=== PATIENT | female | born 1980 | race Caucasian/White ===

== ENCOUNTER 2017-11-19 17:48 | Emergency (ER) | payer MEDICAID, SELFPAY ==
[2017-11-19 17:49] VITALS: BP 125/70; PULSE 78; RESP 18; TEMP 36.4; O2SAT 97; BMI 36.9
[2017-11-19 20:20] VITALS: BP 122/91; PULSE 84; RESP 18; O2SAT 99
[2017-11-19] MEDS: Ondansetron 4 MG/2 ML Vial IV (20:22)
[2017-11-19] MEDS: HYDROmorphone 1 MG/ML Syringe 0.5 MG IV (20:22)
[2017-11-19] MEDS: 0.9% Normal Saline 1,000 ML 1000 ML IV (20:22)
[2017-11-19] MEDS: Dicyclomine 10 MG Capsule 20 MG PO (21:37)
[2017-11-19 22:00] VITALS: BP 97/66; PULSE 67; RESP 18; O2SAT 96
[2017-11-19 22:11] LABS: Absolute Lymphocyte Count 2.38 X10^3/ul (0.83-4.51); Absolute Neutrophil Count 4.6 X10^3/uL (2.0-7.7); Basophil# 0.02 X10^3/uL; Basophil% 0.3 % (0-1); Eosinophil# 0.21 X10^3/uL; Eosinophils% 2.7 % (0-5); Hematocrit 39.3 % (37-47); Hemoglobin 13.3 g/dl (12.0-15.0); Lymphocyte # 2.38 X10^3/ul (4.0); Lymphocyte % 31.1 % (19-41); Mean Corp Hgb Conc 33.8 g/gl (32-36); Mean Corpuscular Hgb 29.5 pg (27.0-32.0); Mean Corpuscular Volume 87.1 fL (81-99); Mean Platelet Vol. 10.2 fl (6.2-12.0); Monocyte# 0.46 X10^3/uL; Neutrophil # 4.56 X10^3/uL (2.7-7.7); Neutrophil % 59.6 % (47-70); Platelet Count 180 K/mm3 (150-450); RBC Distribution Width CV 13.7 % (11.6-14.6); RBC Distribution Width SD 43.1 fl (35.1-43.9); Red Blood Count 4.51 M/mm3 (4.2-5.4); White Blood Count 7.7 K/mm3 (4.4-11.0)
[2017-11-19 22:16] LABS: POSITIVE COUNT NO; POSITIVE DIFFERENTIAL NO; POSITIVE MORPHOLOGY NO
[2017-11-19 22:25] LABS: Anion Gap 8 (5-15); BUN 15 mg/dL (7-18); BUN/Creat Ratio 19.6 RATIO (10-20); Calcium,Total 8.1 mg/dL (8.5-10.1); Chloride 109 mmol/L (98-107); Creatinine, Serum 0.76 mg/dL (0.55-1.02); EST Glomerular Filtration Rate 89 mL/min (>60); Est Glom Filt Rate - Afr Amer 108 mL/min (>60); Estimated Creatinine Clearance 107.47 ml/min; Glucose 80 mg/dL (74-106); Potassium 3.9 mmol/L (3.5-5.1); Sodium Level 140 mmol/L (136-145)
--- NOTE | 2017-11-19 23:01 | ED.DCSUM_ITS ---
- ER Visit Summary Date of Service: 11/19/17 Chief Complaint: Abdominal pain with nausea, vomiting and diarrhea History of Present Illness: The patient is a 37 F history of lupus on immunosuppressive meds presents with abdominal pain that is diffuse with nausea , vomiting diarrhea. The nausea and vomiting started yesterday and she states she vomited 5 times. She denied any blood or coffee-ground emesis. She has not vomited today. She states diarrhea started today which is loose and watery. There is no blood, mucus in stool is not black. She has not been on any antibiotics recently. She has had no ill contacts. There is no history of C. difficile. She did not eat anything that did not taste normal to her. She also complains of subjective fever with chills, sore throat and cough. Her cough is nonproductive. She denies dysuria, frequency, urgency hematuria. She does complain of aches. She states her lupus has affected her liver and lungs. She has no renal involvement. Review of systems otherwise negative and please read written note. 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 HEENT exam is marked for dry mucosa otherwise negative. Heart is regular without murmur, gallop or rub. S1 and S2 are normal. Lungs are clear to auscultation with good movement of air bilaterally. Abdomen is minimally tender without guarding or peritoneal findings. All sounds are slightly increased. There is no evidence of umbilical or inguinal hernia. There is no skin lesions noted. Neuro exam is nonfocal. Test Results: CBC and BMP are unremarkable. Emergency Department Course and Treatment: IV was established she was treated with Zofran and Bentyl. She has since passed p.o. challenge. She was reassessed at 2250 and is sitting upright smiling and using her cell phone. She appears in no discomfort presently. Because she is on amino suppressive meds with complaints of fever and chills and the fact she has lupus BMP and CBC were obtained. Treatment Plan: Home pack of Zofran and follow-up with PCP Disposition: Discharged home in stable improved condition Impression: 1. Abdominal pain with nausea, vomiting diarrhea 2. 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 It may contain incorrect words, spelling, and punctuation that were not noted in review of the chart prior to signing ED Disposition - Plan for ED Patient: Disposition: Home or Assisted Living Chief Complaint: Nausea/Vomiting Instructions: ED Vomiting Diarrhea Nonspecific Ad Referrals: Care Physician,No Primary [Primary Care Provider] - Lazaro Gore [NON-STAFF] - 1-2 Days if not improving
[2017-11-19] MEDS: Ondansetron ODT 4 MG Tablet PO (23:16)
[2017-11-19 23:17] VITALS: BP 106/75; PULSE 61; RESP 18; O2SAT 99
== END 2017-11-19 23:18 | disposition home or self-care (01) ==
PROVIDERS: Emergency Provider Emergency Medicine
DX: R10.84 Generalized abdominal pain (principal); R11.2 Nausea with vomiting, unspecified; R19.7 Diarrhea, unspecified; J84.17 Other interstitial pulmonary diseases with fibrosis in diseases classified elsewhere; I27.20 Pulmonary hypertension, unspecified; G47.33 Obstructive sleep apnea (adult) (pediatric); E66.9 Obesity, unspecified; Z79.51 Long term (current) use of inhaled steroids; Z79.891 Long term (current) use of opiate analgesic; Z79.899 Other long term (current) drug therapy
CPT/HCPCS: 80048; 85025; 96361; 96374; 96375; 99284; J7030; A4216; J2405

== ENCOUNTER 2018-02-08 22:15 | Emergency (ER) | payer MEDICAID, SELFPAY ==
--- NOTE | 2018-02-08 13:03 | EKG12_ITS ---
Test Reason : CP Blood Pressure : / mmHG Vent. Rate : 086 BPM Atrial Rate : 086 BPM P-R Int : 148 ms QRS Dur : 080 ms QT Int : 376 ms P-R-T Axes : 062 076 042 degrees QTc Int : 449 ms Normal sinus rhythm Normal ECG Confirmed by HENOK SALAMANCA MD ([id number]), design editor JACIEL CANALES ([id number]) on 02/13/2018 5:38:58 PM Referred By: KELLY
--- NOTE | 2018-02-08 21:55 | RAD_ITS ---
STUDY: X-RAY CHEST REASON FOR EXAM: Female, 37 years old. Cough TECHNIQUE: Frontal and lateral views COMPARISON: January 05, 2017 FINDINGS: The lungs are clear and expanded. There is no demonstrated pleural abnormality. Normal size heart. Normal mediastinum and germán. Normal visualized pulmonary arteries. Normal visualized aortic arch and descending thoracic aorta. Normal visualized thoracic spine. Normal visualized ribs, clavicles, and shoulders. There is no demonstrated abnormality of the visualized soft tissue structures of the upper abdomen. RAD/Chest PA and Lateral IMPRESSION: Normal x-ray examination of the chest. Electronically Signed: Cecilio Cifuentes DO at 22:16 EDT Tel [phone], Service support ,
--- NOTE | 2018-02-08 22:15 | DT_ITS ---
This patient was seen during an EMR downtime February 04, 2018 - February 11, 2018. This patient may have a combination of paper and electronic documentation or all paper documentation. All documentation is viewable within the e-chart portion of [employer] for each patient visit.
== END 2018-02-08 22:50 | disposition home or self-care (01) ==
LOC: ED 02-09 14:01
PROVIDERS: Emergency Provider Emergency Medicine
DX: J45.901 Unspecified asthma with (acute) exacerbation (principal); I27.20 Pulmonary hypertension, unspecified; G47.30 Sleep apnea, unspecified; M32.9 Systemic lupus erythematosus, unspecified; Z79.899 Other long term (current) drug therapy
CPT/HCPCS: 71046; 93005; 94640; 99283

== ENCOUNTER → 2018-04-19 13:57 | Outpatient (CLI) | payer MEDICAID, SELFPAY ==
[2018-04-19 15:11] LABS: Absolute Lymphocyte Count 2.71 X10^3/ul (0.83-4.51); Absolute Neutrophil Count 2.4 X10^3/uL (2.0-7.7); Basophil# 0.03 X10^3/uL; Basophil% 0.5 % (0-1); Eosinophil# 0.22 X10^3/uL; Eosinophils% 3.8 % (0-5); Hematocrit 43.4 % (37-47); Hemoglobin 15.4 g/dl (12.0-15.0); Lymphocyte # 2.71 X10^3/ul (4.0); Lymphocyte % 46.3 % (19-41); Mean Corp Hgb Conc 35.5 g/gl (32-36); Mean Corpuscular Hgb 29.7 pg (27.0-32.0); Mean Corpuscular Volume 83.6 fL (81-99); Mean Platelet Vol. 10.6 fl (6.2-12.0); Monocyte# 0.46 X10^3/uL; Monocyte% 7.9 % (0-10); Neutrophil # 2.41 X10^3/uL (2.7-7.7); Neutrophil % 41.2 % (47-70); Platelet Count 250 K/mm3 (150-450); RBC Distribution Width CV 13.9 % (11.6-14.6); RBC Distribution Width SD 42.2 fl (35.1-43.9); Red Blood Count 5.19 M/mm3 (4.2-5.4); White Blood Count 5.9 K/mm3 (4.4-11.0)
[2018-04-19 15:12] LABS: POSITIVE COUNT NO; POSITIVE DIFFERENTIAL NO; POSITIVE MORPHOLOGY NO
[2018-04-19 15:21] LABS: ALB/GLOB Ratio 0.7 RATIO (0.9-2.4); AST(SGOT) 26 U/L (15-37); Alanine Aminotransfer ALT/SGPT 29 U/L (13-56); Albumin, Serum 3.3 g/dL (3.2-5.0); Alkaline Phosphatase 78 U/L (45-117); Anion Gap 6 (5-15); BUN 18 mg/dL (7-18); BUN/Creat Ratio 23.3 RATIO (10-20); Calcium,Total 8.4 mg/dL (8.5-10.1); Chloride 107 mmol/L (98-107); Cholesterol 131 mg/dL (200); Creatinine, Serum 0.77 mg/dL (0.55-1.02); EST Glomerular Filtration Rate 88 mL/min (>60); Est Glom Filt Rate - Afr Amer 107 mL/min (>60); Globulin 4.5 g/dL (2.2-4.2); Glucose 87 mg/dL (74-106); High Density Lipoprotein 46 mg/dL; Potassium 4.3 mmol/L (3.5-5.1); Protein, Total 7.8 g/dL (6.4-8.2); Sodium Level 137 mmol/L (136-145); Triglycerides 96 mg/dL; Very Low Density Lipoprotein 19 mg/dL (5-40)
== END ==
PROVIDERS: Family Provider Internal Medicine; PCP Internal Medicine; Visit Provider Internal Medicine
DX: L93.0 Discoid lupus erythematosus (principal)
CPT/HCPCS: 36415; 80053; 80061; 85025

== ENCOUNTER 2018-05-13 21:48 | Emergency (ER) | payer MEDICAID, SELFPAY ==
[2018-05-13 21:49] VITALS: BP 110/76; PULSE 107; RESP 16; TEMP 37.1; O2SAT 95; BMI 35.9
[2018-05-13] MEDS: Metoclopramide 10 MG/2 ML Vial IV (22:10)
[2018-05-13] MEDS: 0.9% Normal Saline 1,000 ML 1000 ML IV (22:10)
[2018-05-13] MEDS: HYDROmorphone 1 MG/ML Syringe IV (22:10)
[2018-05-13] MEDS: Dicyclomine 20 MG/2 ML Vial IM (22:10)
[2018-05-13 22:17] LABS: Absolute Lymphocyte Count 3.25 X10^3/ul (0.83-4.51); Absolute Neutrophil Count 4.9 X10^3/uL (2.0-7.7); Basophil# 0.01 X10^3/uL; Basophil% 0.1 % (0-1); Eosinophil# 0.32 X10^3/uL; Eosinophils% 3.5 % (0-5); Hematocrit 43.2 % (37-47); Hemoglobin 14.8 g/dl (12.0-15.0); Lymphocyte # 3.25 X10^3/ul (4.0); Lymphocyte % 35.8 % (19-41); Mean Corp Hgb Conc 34.3 g/gl (32-36); Mean Corpuscular Hgb 29.4 pg (27.0-32.0); Mean Corpuscular Volume 85.9 fL (81-99); Mean Platelet Vol. 10.6 fl (6.2-12.0); Monocyte# 0.55 X10^3/uL; Monocyte% 6.1 % (0-10); Neutrophil # 4.94 X10^3/uL (2.7-7.7); Neutrophil % 54.3 % (47-70); Platelet Count 219 K/mm3 (150-450); RBC Distribution Width CV 13.8 % (11.6-14.6); Red Blood Count 5.03 M/mm3 (4.2-5.4); White Blood Count 9.1 K/mm3 (4.4-11.0)
[2018-05-13 22:18] LABS: POSITIVE COUNT NO; POSITIVE DIFFERENTIAL NO; POSITIVE MORPHOLOGY NO
[2018-05-13 22:25] LABS: Anion Gap 11 (5-15); BUN 15 mg/dL (7-18); BUN/Creat Ratio 18.5 RATIO (10-20); Chloride 112 mmol/L (98-107); Creatinine, Serum 0.81 mg/dL (0.55-1.02); EST Glomerular Filtration Rate 83 mL/min (>60); Est Glom Filt Rate - Afr Amer 101 mL/min (>60); Estimated Creatinine Clearance 100.84 ml/min; Glucose 106 mg/dL (74-106); Potassium 3.8 mmol/L (3.5-5.1); Sodium Level 140 mmol/L (136-145)
--- NOTE | 2018-05-13 22:55 | ED.DCSUM_ITS ---
- ER Visit Summary Date of Service: 05/13/18 Chief Complaint: [Diarrhea and vomiting] History of Present Illness: The patient is a 37 F [presents the emergency department chief complaint of diarrhea that started 2 days ago. Patient states that she was seen by primary care physician today and ordered Zofran. Patient today has been vomiting over the last 4 hours and is thrown up about 10 times. She denies any fever. She does describe abdominal cramping and bloating. Patient states that her daughter had diarrhea a few days ago. Patient denies recent travel. Patient denies recent antibiotic usage.] Physical Examination: [HEENT-PERRLA, EOMI. Cranial nerves II through XII grossly intact. TMs clear. Mucous membranes moist. No adenopathy. Cardiovascular-regular rate and rhythm without murmur or ectopy Lungs-clear to auscultation, chest wall stable without crepitus or subcu emphysema Abdomen-normoactive bowel sounds, soft. Patient has some mild diffuse tenderness. There is no rebound, rigidity, or perineal signs. Extremities-intact ?4, normal range of motion, normal pulses, atraumatic Test Results: [CBC with differential obtained showed a white count of 9.1, hemoglobin 14.8, hematocrit 43, platelets 219. Chemistries unremarkable.] Emergency Department Course and Treatment: [Was medicated with Dilaudid and antiemetics. Patient was given Bentyl 20 mg IM. Patient was given a GI cocktail.] Treatment Plan: [Patient will be given a prescription for Bentyl.] She was able to tolerate a p.o. challenge. Disposition: [Discharged home in stable condition.] Impression: [Viral gastroenteritis] This note was generated with [employer] dictation software. It may contain incorrect words, spelling, and punctuation that were not noted in review of the chart prior to signing ED Disposition - Plan for ED Patient: Chief Complaint: Nausea/Vomiting/Diarrhea Referrals: Kelli Ram MD [Primary Care Provider] -
[2018-05-13] MEDS: Mag Hydrox/Al Hydrox/Simeth 30 ML UDC PO (23:00)
[2018-05-13] MEDS: 0.9% Normal Saline 1,000 ML 999 ML IV (23:01)
--- NOTE | 2018-05-13 23:11 | ED.DEP ---
ED Disposition - Plan for ED Patient: Chief Complaint: Nausea/Vomiting/Diarrhea Instructions: ED Gastroenteritis Viral Prescriptions: proMETHazine suppository [Phenergan] 25 mg RC Q6H PRN PRN #12 suppos. PRN Reason: Nausea Dicyclomine HCl [Bentyl] 10 mg PO TID PRN #20 cap PRN Reason: Cramp Referrals: Kelli Ram MD [Primary Care Provider] - 3-5 Days
[2018-05-14 00:01] VITALS: BP 108/70; PULSE 74; RESP 16; O2SAT 98
== END 2018-05-14 00:03 | disposition home or self-care (01) ==
LOC: ED 22:17
PROVIDERS: Emergency Provider Emergency Medicine; Family Provider Internal Medicine; PCP Internal Medicine
DX: A08.4 Viral intestinal infection, unspecified (principal); I10 Essential (primary) hypertension; Z79.51 Long term (current) use of inhaled steroids; Z79.899 Other long term (current) drug therapy
CPT/HCPCS: 80048; 85025; 96361; 96372; 96374; 96375; 99284; J7030

== ENCOUNTER → 2018-05-17 12:38 | Outpatient (CLI) | payer MEDICAID, SELFPAY ==
--- NOTE | 2018-05-17 12:41 | RAD_ITS ---
STUDY: X-RAY - LUMBAR SPINE REASON FOR EXAM: Female, 37 years old. llow back and left hip pain. no injury. hx of lupus TECHNIQUE: 5 view(s) of the lumbar spine were obtained. COMPARISON: None FINDINGS: Normal lumbar lordosis. There is no substantial scoliosis. There is a normal alignment of the vertebrae. Normal vertebral bodies and endplates. Normal disc space heights. The soft tissue structures are unremarkable. RAD/L/S Spine Min 4 Views IMPRESSION: Normal x-ray examination of the lumbar spine. Electronically Signed: Eran Mora MD at 21:45 EDT , Service support ,
== END ==
PROVIDERS: Family Provider Internal Medicine; PCP Internal Medicine; Visit Provider Nurse Practitioner Family
DX: M54.5 Low back pain (principal)
CPT/HCPCS: 72100; 72110

== ENCOUNTER 2018-08-07 19:13 | Observation (INO) | payer MEDICAID, SELFPAY ==
[2018-07-31 10:41] VITALS: BMI 35.9
[2018-08-07 19:14] VITALS: BP 135/91; PULSE 62; RESP 15; TEMP 36.3; O2SAT 100; BMI 40.1
--- NOTE | 2018-08-07 19:49 | CT_ITS ---
STUDY: CT ABDOMEN AND PELVIS WITHOUT CONTRAST REASON FOR EXAM: Female, 37 years old. Abdominal pain with bloating. Diarrhea. RADIATION DOSAGE (If Supplied By Facility): CTDIvol = ( 19.69 ) mGy, DLP = ( 1096.98 ) mGycm TECHNIQUE: Transaxial images were obtained from the dome of the diaphragm to the symphysis pubis without oral contrast, and without intravenous contrast. Sagittal and coronal images were reconstructed. Individualized dose optimization techniques were used for this CT. COMPARISON: 05/22/2016. FINDINGS: There are multiple small cysts in the lung bases. These are increased compared to the prior study. The visualized portions of the heart are within normal limits. Normal liver. There is non-visualization of the gallbladder, which may be secondary to either contraction or a prior cholecystectomy. Normal spleen. Normal pancreas. Normal bilateral adrenal glands. Normal right kidney. Normal left kidney. The aorta is normal in caliber. There is no bowel obstruction or inflammatory change. The appendix is normal. Stool burden is low to moderate. There is no free fluid, free air, or organized collection. Shotty pelvic adenopathy is noted. The bladder is not distended. Normal visualized uterus. The left ovary is prominent compared to the right measuring 4 x 3 cm. Normal abdominal wall. Normal osseous structures. CT/Abdomen/Pelvis without Cont IMPRESSION: Prominent left ovary compared to the right. If the patient has acute left lower quadrant or pelvic pain, consider pelvic ultrasound with duplex evaluation to exclude ovarian torsion. Shotty pelvic adenopathy. Small cysts in the lung bases are increased compared to the prior study. Electronically Signed: Heidi Newell MD at 21:52 EST Tel , Service support ,
--- NOTE | 2018-08-07 19:57 | ED.DCSUM_ITS ---
- ER Visit Summary Date of Service: 08/07/18 Chief Complaint: [] Abdominal pain and diarrhea for 3 days History of Present Illness: The patient is a 37 F [] IBS lupus abdominal pain history, reports for 3 days she has had abdominal pain and diarrhea, she indicates she is pain is crampy in nature she has had loose watery diarrheal bowel movements as well she is able to eat but has a sense of nausea, she indicates she has a cholecystectomy, she had prior colonoscopies, she is been diagnosed with IBS, About 10 days ago she was put on steroids 40 mg of prednisone and azithromycin for a URI that resolved, she has no exposures to sick individuals bad food or other antibiotics no history of C. difficile Physical Examination: [] 131/95 afebrile General, no distress resting comfortably HEENT is generally unremarkable The neck is supple no adenopathy Cardiovascular, regular rate and rhythm Lungs, clear bilateral Abdomen, soft, diffuse discomfort and some mild distention there is no rebound or guarding Extremities, no clubbing cyanosis or edema Neurologic, awake alert answering questions appropriately moving all 4 extremities Test Results: [] Emergency Department Course and Treatment: [] given Her complaints all the above screening labs are obtained, the screening labs are generally unremarkable she was reports, the CT abdomen pelvis shows really nothing acute see that report, EKG and troponin were unremarkable, she continues to complain of upper abdominal discomfort she was given a GI cocktail she reports no improvement does not feel that she can be discharged home at this time given all the above I have asked the hospital see her for the management and admission Treatment Plan: [] Disposition: [] Admit pending hospitalist evaluation Impression: [] Abdominal pain etiology unclear diarrhea and vomiting This note was generated with [employer] dictation software. It may contain incorrect words, spelling, and punctuation that were not noted in review of the chart prior to signing ED Disposition - Plan for ED Patient: Chief Complaint: Abd Pain Referrals: Kelli Ram MD [Primary Care Provider] -
[2018-08-07] MEDS: 0.9% Normal Saline 1,000 ML 1000 ML IV (20:13)
[2018-08-07] MEDS: morphine 8 MG/ML Syringe IV (20:14)
[2018-08-07] MEDS: Ondansetron 4 MG/2 ML Vial IV (20:14)
[2018-08-07 20:31] LABS: Absolute Neutrophil Count 3.8 X10^3/uL (2.0-7.7); Basophil# 0.03 X10^3/uL; Basophil% 0.4 % (0-1); Eosinophil# 0.15 X10^3/uL; Eosinophils% 1.9 % (0-5); Hematocrit 39.4 % (37-47); Mean Corp Hgb Conc 35.5 g/gl (32-36); Mean Corpuscular Volume 84.5 fL (81-99); Mean Platelet Vol. 10.6 fl (6.2-12.0); Monocyte# 0.56 X10^3/uL; Monocyte% 7.1 % (0-10); Neutrophil % 48.3 % (47-70); POSITIVE COUNT NO; POSITIVE DIFFERENTIAL NO; POSITIVE MORPHOLOGY NO; Platelet Count 221 K/mm3 (150-450); RBC Distribution Width CV 13.1 % (11.6-14.6); RBC Distribution Width SD 39.8 fl (35.1-43.9); Red Blood Count 4.66 M/mm3 (4.2-5.4); White Blood Count 7.9 K/mm3 (4.4-11.0)
[2018-08-07 20:50] LABS: AST(SGOT) 21 U/L (15-37); Alanine Aminotransfer ALT/SGPT 24 U/L (13-56); Albumin, Serum 3.2 g/dL (3.2-5.0); Alkaline Phosphatase 79 U/L (45-117); Anion Gap 8 (5-15); BUN 15 mg/dL (7-18); BUN/Creat Ratio 18.9 RATIO (10-20); Bilirubin, Direct 0.35 mg/dL (0.00-0.30); Calcium,Total 7.8 mg/dL (8.5-10.1); Chloride 106 mmol/L (98-107); EST Glomerular Filtration Rate 85 mL/min (>60); Est Glom Filt Rate - Afr Amer 103 mL/min (>60); Globulin 4.3 g/dL (2.2-4.2); Glucose 82 mg/dL (74-106); Lipase 167 U/L (73-393); Potassium 3.8 mmol/L (3.5-5.1); Protein, Total 7.5 g/dL (6.4-8.2); Sodium Level 138 mmol/L (136-145)
[2018-08-07 20:52] LABS: Bacteria 0 SEEN /hpf (None Seen); Mucous, Urine 0 SEEN /hpf (<or=2+); Red Blood Cells-Urine 0 SEEN /hpf (0-5); White Blood Cells 0 SEEN /hpf (0-5)
[2018-08-07 20:53] LABS: Color, Urine Yellow (Yellow); Glucose, Dipstick Normal (Normal); Ketone-Dipstick Negative (Negative); Leukocyte Esterase-Dipstick 25 /ul (Negative); Nitrite-Dipstick Negative (Negative); Occult Blood-Urine Negative /ul (Negative); Protein-Dipstick Negative (Negative); Urine Bilirubin Dipstick Negative (Negative); Urine Clarity Clear (Clear); Urine Urobilinogen Normal (Normal)
[2018-08-07 20:55] LABS: Pregnancy, Serum, hCG Quali. NEGATIVE Negative (0-9 Nonpreg)
[2018-08-07 20:59] LABS: Squamous Epithelial Cells - UA 0-5 SEEN /hpf (5-10)
[2018-08-07 21:00] VITALS: BP 121/66; PULSE 62; RESP 15; O2SAT 99
[2018-08-07 21:35] VITALS: BP 137/94; PULSE 61; RESP 22; O2SAT 99
--- NOTE | 2018-08-07 21:37 | EKG12_ITS ---
Test Reason : CP Blood Pressure : / mmHG Vent. Rate : 060 BPM Atrial Rate : 060 BPM P-R Int : 136 ms QRS Dur : 088 ms QT Int : 428 ms P-R-T Axes : 050 045 006 degrees QTc Int : 428 ms Normal sinus rhythm Nonspecific ST abnormality Abnormal ECG Confirmed by CHEIKH AVALOS, HENOK ([id number]), editorial writer JACIEL CANALES ([id number]) on 08/09/2018 2:51:49 PM Referred By: SHIELA Confirmed By:HENOK SALAMANCA MD
[2018-08-07] MEDS: HYDROmorphone 1 MG/ML Syringe IV ×2 (21:39→23:50)
--- NOTE | 2018-08-07 21:42 | ED.RN ---
PT CALLED OUT UTILIZING CALL LIGHT SYSTEM, PT C/O CHEST TIGHTNESS. DR KUO NOTIFIED. DR KUO GAVE VERBAL ORDER FOR MORPHINE. ORDER QUESTIONED BECAUSE PT HAS MORPHINE LISTED ALLERGY WITH REACTION OF CHEST TIGHTNESS. PER DR KUO GIVE MORPHINE. PT REFUSED MORPHINE. ORDER CHANGED TO DILAUDID
[2018-08-07 22:22] LABS: D-Dimer Quantitative (DVT/PE) < 0.27 FEU/ug/m (0.27-0.49)
[2018-08-07] MEDS: Mag Hydrox/Al Hydrox/Simeth 30 ML UDC PO (22:30)
[2018-08-07 23:00] VITALS: BP 126/87; PULSE 69; RESP 12; O2SAT 95
[2018-08-07] MEDS: proCHLORPERazine 10 MG/2 ML Vial IV (23:48)
--- NOTE | 2018-08-07 23:51 | HP.PCM_ITS ---
Problem List (1) Nausea & vomiting Status: Acute (2) Diarrhea Status: Acute Qualifiers: Diarrhea type: presumed infectious Qualified Code(s): R19.7 - Diarrhea, unspecified (3) Abdominal pain Status: Acute Qualifiers: Abdominal location: left upper quadrant Qualified Code(s): R10.12 - Left upper quadrant pain Comment: and epigastric (4) Chronic pain Status: Chronic (5) Depression with anxiety Status: Chronic (6) SLE (systemic lupus erythematosus) Status: Chronic (7) Vascular disease Status: Chronic (8) IBS (irritable bowel syndrome) Status: Chronic (9) Hearing problem Status: Chronic (10) Anemia Status: Chronic (11) Rheumatoid arthritis Status: Chronic (12) Hypersomnia Status: Chronic (13) Allergic rhinitis Status: Chronic (14) Interstitial lung disease Status: Chronic (15) Asthma Status: Chronic (16) Pulmonary fibrosis Status: Chronic (17) Pulmonary nodule Status: Chronic (18) GERD (gastroesophageal reflux disease) Status: Chronic (19) MYRTLE (obstructive sleep apnea) Status: Chronic History of Present Illness Date of Admission: 08/07/18 Chief Complaint: Crampy abdominal pain associated with nausea/vomiting/diarrhea for 72 hours The patient is a 37 year old F with a past medical history of SLE, GERD, asthma, irritable bowel syndrome, vascular disease, interstitial lung disease, depression/anxiety, morbid obesity and obstructive sleep apnea who presented to the emergency department at [facility] on 08/07/2018 complaining of a 3-day history of epigastric and left upper quadrant abdominal pain associated with nausea/vomiting and diarrhea. Her last emesis was on 08/06/2018. She last had a bowel movement this a.m. She denies any blood in her bowel movements but states they are liquid. She was recently on a course of azithromycin for URI. She denies any sick contacts. She denies fever/chills. She tells me that when her lupus is active she has pain in her abdomen. In the past she has been on Percocet and Xanax for pain however she has not had prescriptions for Percocet or Xanax since November 2017. She previously saw a computer system technician at [facility] but has not seen the computer system technician in approximately 1 year since she moved to [place]. In the past she has been on Rituxan with good results. Currently she is only taking Plaquenil. She is additionally complaining of pain in her hips and knees. This pain was somewhat better after a 5-day course of prednisone for exacerbation of asthma. Vital signs of presentation to the emergency room are temperature 97.4, pulse rate 62, blood pressure 135/91, respiratory rate 15 and she was 100% saturated on room air. CBC was unremarkable. A d-dimer was less than 0.27. Electrolytes are within normal limits and the BUN is 15 with a creatinine of 0.8. Bilirubin is mildly increased at 1.6 but the transaminases and alkaline phosphatase are within normal limits and she has had a bilirubin as high as 1.03 in the past. Troponin is within normal limits. Lipase is normal. Serum was negative. UA is unremarkable. CT scan of the abdomen and pelvis showed a prominent left ovary when compared to the right but was otherwise unremarkable. She is being admitted to the hospital for observation and W/U for cause of diarrhea/abdominal pain. Past Medical History Past Medical History (Chronic Problems): Chronic Problems (Last Reviewed 08/07/18 @ 23:59 by Mary Beth Dunbar DO) Chronic pain (Chronic) Depression with anxiety (Chronic) SLE (systemic lupus erythematosus) (Chronic) Sleep apnea (Chronic) Vascular disease (Chronic) IBS (irritable bowel syndrome) (Chronic) Hearing problem (Chronic) Anemia (Chronic) Rheumatoid arthritis (Chronic) Hypersomnia (Chronic) Allergic rhinitis (Chronic) Shortness of breath (Chronic) Interstitial lung disease (Chronic) Lupus (Chronic) Asthma (Chronic) Bronchitis (Chronic) Depression (Chronic) Pulmonary fibrosis (Chronic) Pulmonary nodule (Chronic) GERD (gastroesophageal reflux disease) (Chronic) MYRTLE (obstructive sleep apnea) (Chronic) Allergic rhinitis (Chronic) Medical History: Medical History (Last Reviewed 08/07/18 @ 23:59 by Mary Beth Dunbar DO) Sleep apnea (Chronic) G47.30 Vascular disease (Chronic) I99.9 IBS (irritable bowel syndrome) (Chronic) K58.9 Hearing problem (Chronic) H91.90 Anemia (Chronic) D64.9 Rheumatoid arthritis (Chronic) M06.9 Hypersomnia (Chronic) G47.10 Asthma exacerbation (Acute) J45.901 Allergic rhinitis (Chronic) J30.9 Shortness of breath (Chronic) R06.02 Interstitial lung disease (Chronic) J84.9 Lupus (Chronic) L93.0 Asthma (Chronic) J45.909 Bronchitis (Chronic) J40 Depression (Chronic) F32.9 Pulmonary fibrosis (Chronic) J84.10 Pulmonary nodule (Chronic) R91.1 GERD (gastroesophageal reflux disease) (Chronic) K21.9 Pleurisy (Acute) R09.1 Allergies amoxicillin Allergy (Verified 05/13/18 21:55) Nausea/Vom/Diarrhea hydrocodone bitartrate [From Vicodin] Allergy (Verified 05/13/18 21:55) Swelling metronidazole [From Flagyl] Adverse Reaction (Verified 05/13/18 21:55) Nausea morphine Adverse Reaction (Verified 05/13/18 21:55) Chest tightness Home Medications: Ambulatory Orders Medication Instructions Recorded Rituxan See Rx Instructions IV .COMPLEX 09/06/17 cyclosporine 0.05 % eye drops in a 1 drp OPHTHALMIC Q12H 09/06/17 dropperette albuterol sulfate HFA 90 1 - 2 puff INHALATION Q6H PRN PRN 09/11/17 mcg/actuation aerosol inhaler #1 device montelukast 10 mg tablet 10 mg PO DAILY #30 tab 09/11/17 hydroxychloroquine 200 mg tablet 200 mg PO BIDCM #180 tab 04/09/18 pantoprazole 40 mg tablet,delayed 40 mg PO DAILY #90 tab 04/09/18 release ondansetron HCl 4 mg tablet 4 mg PO BID-TID PRN #20 tab 05/13/18 codeine 10 mg-guaifenesin 100 mg/5 See Rx Instructions PO Q6H PRN 07/31/18 mL oral liquid #120 ml fluticasone 50 mcg/actuation nasal 2 spray INTRANASAL QDAY PRN #47.4 g 07/31/18 spray,suspension mometasone-formoterol HFA 200 2 puff INHALATION BID #1 device 07/31/18 mcg-5 mcg/actuation aerosol inhaler Venlafaxine HCl [Effexor Xr] 150 mg PO QDAY 08/07/18 traZODone [Desyrel] 100 mg PO QHS 08/07/18 Surgical History: Surgical History (Last Reviewed 08/07/18 @ 23:59 by Mary Beth Dunbar DO) History of cholecystectomy Z90.49 2005 History of tonsillectomy Z90.89 1998 history ear drum replacement 2009 Surgical History: noncontributory Psychiatric History: Anxiety, Depression DIRECTOR TOXICOLOGY History: No pertinent DIRECTOR TOXICOLOGY history Lives: With Family - she has 2 children Smoking Status: Never smoker Tobacco Use: Non-smoker Alcohol: Rare Drugs: None - *Family History Maternal Family History: Family History (Last Reviewed 08/08/18 @ 00:00 by Mary Beth Dunbar DO) Mother Bladder cancer Hypertension Diabetes Alcoholism Arthritis Father Lung cancer Alcoholism Grandfather Bowel disease Colon cancer Grandfather Lung cancer Grandmother No problems noted. Review of Systems Constitutional: Reports: Anorexia, Malaise. Denies: Chills, Fever, Weight Change Eyes: Denies: Blurred vision, Pain HEENT: Denies: Difficulty Swallowing, Head Aches, Sinus Congestion, Sinus Drainage, Sore Throat Cardiovascular: Denies: Chest Pain, Edema, Palpitations Respiratory: Denies: Cough, Shortness of breath at rest, Sputum production Gastrointestinal: Reports: Abdominal Pain, Diarrhea, Nausea, Vomiting Genitourinary: Denies: Dysuria Gynecological: Denies: Breast symptoms, Vaginal discharge Musculoskeletal: Reports: Joint Pain - Primarily the knees and hips, Joint Tenderness Skin: Denies: Jaundice, Rash, Wounds Neurological: Denies: Numbness, Tingling, Focal weakness Psychiatric: Reports: Anxiety, Depression. Denies: Homicidal Ideations, Suicidal Ideations Hematologic/ Lymphatic: Denies: Easy Bruising, Easy Bleeding, Hx of blood clot VTE Information - Inpt Only VTE Present on Admission: No VTE Mechan Device Prophylaxis: SCD's VTE Pharm Prophylaxis ordered?: Yes Patient Problems: Active and Suspected Problems (Last Reviewed 08/07/18 @ 23:59 by Mary Beth Dunbar DO) Nausea & vomiting (Acute) Diarrhea (Acute) Abdominal pain (Acute) and epigastric - Physical Exam General: Alert, Oriented x3, Cooperative, - - her lips are very dry and she appears to be in pain HEENT: Atraumatic, PERRLA, EOMI, Normocephalic Oral: No Gingival or Mucosal Lesions/ Ulcerations, Dry Mucosa Neck: Supple, No JVD, Negative Carotid Bruits, No Nuchal Rigidity, Trachea Midline Lungs: Clear to auscultation, Normal air movement, No rhonchi, No wheeze, No rales Cardiovascular: Regular rate, Regular Rhythm, Normal S1, Normal S2, No murmurs, No rub noted, No Gallop Abdomen: Soft, Hypoactive Bowel Sounds, Tender - in the epigastric and the left upper quadrant with guarding in the epigastric area. Extremities: No edema, Capillary Refill Less than 3 Seconds Skin: No rashes, No breakdown Musculoskeletal: - - no swollen red joints Neurological: Cranial nerves II-XII grossly intact, Neuro grossly intact Psych/Mental Status: Normal Affect, Appropriate Vital Signs Temp Pulse Resp BP Pulse Ox 97.4 F L 61 22 H 137/94 H 99 08/07/18 19:14 08/07/18 21:35 08/07/18 21:35 08/07/18 21:35 08/07/18 21:35 Oxygen Flow Rate (L/min) 2 Oxygen Delivery Method Nasal Cannula Weight: 280 lb Body Mass Index (BMI) 40.1 Laboratory Tests Past 24 Hrs 08/07/18 08/07/18 08/07/18 20:15 20:15 20:15 WBC 7.9 RBC 4.66 Hgb 14.0 Hct 39.4 MCV 84.5 MCH 30.0 MCHC 35.5 RDW 13.1 RDW Differential 39.8 Plt Count 221 MPV 10.6 Immature Gran % (Auto) 0.300 Neut % (Auto) 48.3 Lymph % (Auto) 42.0 H [place] % (Auto) 7.1 Eos % (Auto) 1.9 Baso % (Auto) 0.4 Absolute Neuts (auto) 3.8 Absolute Lymphs (auto) 3.30 Total Counted Not Reportable D-Dimer Quant (PE/DVT) Sodium 138 Potassium 3.8 Chloride 106 Carbon Dioxide 24.0 Anion Gap 8 BUN 15 Creatinine 0.80 Estim Creat Clear Calc 102.10 Est GFR (MDRD) Af Amer 103 Est GFR (MDRD) Non-Af 85 BUN/Creatinine Ratio 18.9 Glucose 82 Calcium 7.8 L Total Bilirubin 1.60 H Direct Bilirubin 0.35 H AST 21 ALT 24 Alkaline Phosphatase 79 Troponin I < 0.015 Total Protein 7.5 Albumin 3.2 Globulin 4.3 H Lipase 167 Serum , Qual NEGATIVE Urine Color Urine Clarity Urine pH Ur Specific [place] Urine Protein Urine Glucose (UA) Urine Ketones Urine Occult Blood Urine Nitrite Urine Bilirubin Urine Urobilinogen Ur Leukocyte Esterase Urine RBC Urine WBC Ur Squamous Epith Cells Urine Bacteria Urine Mucus 08/07/18 08/07/18 20:45 22:02 WBC RBC Hgb Hct MCV MCH MCHC RDW RDW Differential Plt Count MPV Immature Gran % (Auto) Neut % (Auto) Lymph % (Auto) [place] % (Auto) Eos % (Auto) Baso % (Auto) Absolute Neuts (auto) Absolute Lymphs (auto) Total Counted D-Dimer Quant (PE/DVT) < 0.27 L Sodium Potassium Chloride Carbon Dioxide Anion Gap BUN Creatinine Estim Creat Clear Calc Est GFR (MDRD) Af Amer Est GFR (MDRD) Non-Af BUN/Creatinine Ratio Glucose Calcium Total Bilirubin Direct Bilirubin AST ALT Alkaline Phosphatase Troponin I Total Protein Albumin Globulin Lipase Serum , Qual Urine Color Yellow Urine Clarity Clear Urine pH 5.0 Ur Specific [place] 1.020 Urine Protein Negative Urine Glucose (UA) Normal Urine Ketones Negative Urine Occult Blood Negative Urine Nitrite Negative Urine Bilirubin Negative Urine Urobilinogen Normal Ur Leukocyte Esterase 25 H Urine RBC 0 SEEN Urine WBC 0 SEEN Ur Squamous Epith Cells 0-5 SEEN Urine Bacteria 0 SEEN Urine Mucus 0 SEEN Assessment/Plan All Active Problems (Last Reviewed 08/07/18 @ 23:59 by Mary Beth Dunbar DO) Nausea & vomiting (Acute) Diarrhea (Acute) Abdominal pain (Acute) Gastroenteritis (Acute) Asthma exacerbation (Acute) Pleurisy (Acute) Sinusitis (Acute) Asthma exacerbation (Acute) Impressions 1. N/V/D/abdominal pain - unremarkable lab, AF, only 1 BM today and no vomiting since yesterday. suspect possible viral gastroenteritis but, she recently had a course of Azithromycin so will check C. Diff. Also check and enteric pathogen panel and fecal leukocytes. She was tearful in the ER and states she has been under a lot of stress recently. IBS may be contributing to her sx. If the sx are due to an exacerbation of SLE her ESR and CRP should be elevated. Doubt drug seeking....the monthly rx's for Xanax and Percocet stopped in November 2017. 2. SLE 3. Asthma 4. Morbid obesity 5. Obstructive sleep apnea 6. Gastroesophageal reflux disease There are multiple conflicting diagnoses on the hx.....RA, SLE, SS? asthma, interstitial lung dz, pulmonary fibrosis. this should be clarified with the patient and the chart amended to reflect the proper diagnoses. Enteric pathogen panel, fecal leukocytes Hydrate Pain control with IV Dilaudid and oxycodone 10 mg p.o. every 4 hours as needed re-evaluate in the AM Code Visit OBSV E&M: 06512 Initial observation care L3
[2018-08-08] VITALS (7 sets, daily range): BP systolic 98–106; BP diastolic 50–74; PULSE 60–82; RESP 16–18; TEMP 36.4–36.9; O2SAT 95–99; BMI 35.8
[2018-08-08 01:37] LABS: Erythrocyte Sedimentation Rate 18 mm/hr (0-20)
[2018-08-08] MEDS: Ondansetron 4 MG/2 ML Vial IV ×3 (01:49→22:02)
[2018-08-08] MEDS: 0.9% Normal Saline 1,000 ML 125 ML IV ×3 (01:49→17:02)
[2018-08-08] MEDS: HYDROmorphone 1 MG/ML Syringe IV ×6 (01:54→22:05)
[2018-08-08] MEDS: Enoxaparin 40 MG/0.4 ML Syringe SC (08:59)
[2018-08-08] MEDS: Pantoprazole Sodium 40 MG Tablet PO (09:00)
--- NOTE | 2018-08-08 10:28 | PN_ITS ---
Patient Problems: Active and Suspected Problems (Last Reviewed 08/07/18 @ 23:59 by Mary Beth Dunbar DO) Nausea & vomiting (Acute) Diarrhea (Acute) Abdominal pain (Acute) and epigastric Subjective: Patient is a 37-year-old lady admitted with intractable nausea vomiting in addition to abdominal discomfort and bloating. Patient underwent CT of the abdomen in the ED demonstrated only a prominent left ovary compared to the right is otherwise unremarkable study. Seen this a.m. still complains of significant bloating and discomfort Objective: GENERAL: cooperative HEENT: Atraumatic; EYES; Anicteric, Normal Conjunctiva NECK; supple, normal thyroid, no distended JVD. RESPIRATORY: Diminished to auscultation bilaterally, CARDIOVASCULAR: Regular S1 S2, no audible murmurs GI: soft, normoactive bowel sounds, : No Renal angle tenderness; EXTREMITIES: No edema, no clubbing, no cyanosis. MUSCULOSKELETAL: No Joint Tenderness; NEURO: Awake; no lateralizing signs. SKIN: No Rash PSYCH; Normal affect Vitals/I&O's: Vital Signs Temp Pulse Resp BP Pulse Ox 97.6 F L 65 16 102/74 97 08/08/18 05:50 08/08/18 05:50 08/08/18 05:50 08/08/18 05:50 08/08/18 05:50 Oxygen Flow Rate (L/min) 2 Oxygen Delivery Method Room Air Weight: 113.3 kg Body Mass Index (BMI) 35.8 Intake and Output for Last 24 Hours 08/06/18 08/07/18 08/08/18 23:59 23:59 23:59 Intake Total 819 / 819 Balance 819 / 819 Laboratory Results 08/07/18 20:15: WBC 7.9, RBC 4.66, Hgb 14.0, Hct 39.4, MCV 84.5, MCH 30.0, MCHC 35.5, RDW 13.1, RDW Differential 39.8, Plt Count 221, MPV 10.6, Immature Gran % (Auto) 0.300, Neut % (Auto) 48.3, Lymph % (Auto) 42.0 H, [place] % (Auto) 7.1, Eos % (Auto) 1.9, Baso % (Auto) 0.4, Absolute Neuts (auto) 3.8, Absolute Lymphs (auto) 3.30, Total Counted Not Reportable 08/07/18 20:15: Sodium 138, Potassium 3.8, Chloride 106, Carbon Dioxide 24.0, Anion Gap 8, BUN 15, Creatinine 0.80, Estim Creat Clear Calc 102.10, Est GFR (MDRD) Af Amer 103, Est GFR (MDRD) Non-Af 85, BUN/Creatinine Ratio 18.9, Glucose 82, Calcium 7.8 L, Total Bilirubin 1.60 H, Direct Bilirubin 0.35 H, AST 21, ALT 24, Alkaline Phosphatase 79, Troponin I < 0.015, Total Protein 7.5, Albumin 3.2, Globulin 4.3 H, Lipase 167 08/07/18 20:15: Serum , Qual NEGATIVE 08/07/18 20:15: ESR 18 08/07/18 20:15: C-React Prot Ext Range 10.40 H 08/07/18 20:45: Urine Color Yellow, Urine Clarity Clear, Urine pH 5.0, Ur Specific [place] 1.020, Urine Protein Negative, Urine Glucose (UA) Normal, Urine Ketones Negative, Urine Occult Blood Negative, Urine Nitrite Negative, Urine Bilirubin Negative, Urine Urobilinogen Normal, Ur Leukocyte Esterase 25 H, Urine RBC 0 SEEN, Urine WBC 0 SEEN, Ur Squamous Epith Cells 0-5 SEEN, Urine Bacteria 0 SEEN, Urine Mucus 0 SEEN 08/07/18 22:02: D-Dimer Quant (PE/DVT) < 0.27 L Current Medications Dicyclomine HCl (Bentyl) 20 mg PO Q6H PRN PRN PRN Reason: abdominal cramping Enoxaparin Sodium (Lovenox) 40 mg SC DAILY@1000 JULIAN Last Admin: 08/08/18 08:59 Dose: 40 mg Hydromorphone HCl (Dilaudid Inj) 1 mg IV Q3H PRN PRN PRN Reason: SEVERE PAIN (6-10/10) Last Admin: 08/08/18 09:00 Dose: 1 mg Sodium Chloride () 1,000 mls @ 125 mls/hr IV .Q8H JULIAN Last Admin: 08/08/18 08:59 Dose: 125 mls/hr Magnesium Hydroxide (Milk Of Magnesia) 30 ml PO DAILY PRN PRN PRN Reason: Constipation Ondansetron HCl (Zofran) 4 mg IV Q6H PRN PRN PRN Reason: NAUSEA Last Admin: 08/08/18 01:49 Dose: 4 mg Oxycodone HCl (Oxyir) 10 mg PO Q4H PRN PRN PRN Reason: SEVERE PAIN (6-10/10) Pantoprazole Sodium (Protonix) 40 mg PO DAILY [facility] Last Admin: 08/08/18 09:00 Dose: 40 mg Sodium Chloride () 5 - 15 ml IV UD PRN PRN Reason: SALINE FLUSH Medical Necessity - Tobacco Use Smoking Status: Never smoker Tobacco Use: Non-smoker Assessment/Plan All Active Problems (Last Reviewed 08/07/18 @ 23:59 by Mary Beth Dunbar DO) Nausea & vomiting (Acute) Diarrhea (Acute) Abdominal pain (Acute) Gastroenteritis (Acute) Asthma exacerbation (Acute) Pleurisy (Acute) Sinusitis (Acute) Asthma exacerbation (Acute) Patient is a 37-year-old lady with history of lupus on Plaquenil and Rituxan who presented with abdominal pain 1. Abdominal pain attributed to possible viral gastroenteritis versus gastritis. Patient has been admitted to regular nursing floor for symptomatic management. If patient does not improve we will consider obtaining surgical consultation for possible endoscopic evaluation patient was started on clear liquids on admission advance to full liquid with plans to advance to regular if patient tolerates full liquid diet 2. SLE patient is on Plaquenil as well as Rituxan 3. Mild intermittent asthma currently not in exacerbation did continue with patient home regimen 4. Obstructive sleep apnea 5. GERD on PPI 6. Obesity with BMI of 35.8 7. DVT prophylaxis SC Lovenox Active Medications Dicyclomine HCl (Bentyl) 20 mg PO Q6H PRN PRN PRN Reason: abdominal cramping Enoxaparin Sodium (Lovenox) 40 mg SC DAILY@1000 JULIAN Last Admin: 08/08/18 08:59 Dose: 40 mg Hydromorphone HCl (Dilaudid Inj) 1 mg IV Q3H PRN PRN PRN Reason: SEVERE PAIN (6-10/10) Last Admin: 08/08/18 09:00 Dose: 1 mg Sodium Chloride () 1,000 mls @ 125 mls/hr IV .Q8H JULIAN Last Admin: 08/08/18 08:59 Dose: 125 mls/hr Magnesium Hydroxide (Milk Of Magnesia) 30 ml PO DAILY PRN PRN PRN Reason: Constipation Ondansetron HCl (Zofran) 4 mg IV Q6H PRN PRN PRN Reason: NAUSEA Last Admin: 08/08/18 01:49 Dose: 4 mg Oxycodone HCl (Oxyir) 10 mg PO Q4H PRN PRN PRN Reason: SEVERE PAIN (6-10/10) Pantoprazole Sodium (Protonix) 40 mg PO DAILY JULIAN Last Admin: 08/08/18 09:00 Dose: 40 mg Sodium Chloride () 5 - 15 ml IV UD PRN PRN Reason: SALINE FLUSH Code Visit OBSV E&M: [id number] Observ/hosp same date L3
[2018-08-08 10:51] LABS: Hemoglobin 12.6 g/dl (12.0-15.0); Mean Corp Hgb Conc 34.1 g/gl (32-36); Mean Corpuscular Hgb 29.3 pg (27.0-32.0); Platelet Count 189 K/mm3 (150-450); RBC Distribution Width CV 13.4 % (11.6-14.6); RBC Distribution Width SD 41.8 fl (35.1-43.9); White Blood Count 7.6 K/mm3 (4.4-11.0)
[2018-08-08 10:52] LABS: Scan Indicated on CBC? Y/N NO
[2018-08-08 11:13] LABS: ALB/GLOB Ratio 0.8 RATIO (0.9-2.4); AST(SGOT) 290 U/L (15-37); Alanine Aminotransfer ALT/SGPT 263 U/L (13-56); Albumin, Serum 3.1 g/dL (3.2-5.0); Alkaline Phosphatase 159 U/L (45-117); Anion Gap 8 (5-15); BUN 10 mg/dL (7-18); BUN/Creat Ratio 13.5 RATIO (10-20); Bilirubin, Direct 0.51 mg/dL (0.00-0.30); Calcium,Total 7.3 mg/dL (8.5-10.1); Chloride 104 mmol/L (98-107); Creatinine, Serum 0.74 mg/dL (0.55-1.02); EST Glomerular Filtration Rate 93 mL/min (>60); Est Glom Filt Rate - Afr Amer 112 mL/min (>60); Estimated Creatinine Clearance 110.37 ml/min; Globulin 3.9 g/dL (2.2-4.2); Glucose 78 mg/dL (74-106); Magnesium 2.1 mg/dL (1.6-2.6); Potassium 4.1 mmol/L (3.5-5.1); Sodium Level 137 mmol/L (136-145)
[2018-08-08] MEDS: Venlafaxine XR 150 MG Capsule PO (12:52)
--- NOTE | 2018-08-08 15:32 | NURSING ---
This RN taking over care at this time
[2018-08-08] MEDS: Hydroxychloroquine 200 MG Tablet PO (17:01)
[2018-08-08] MEDS: Albuterol 2.5 MG/3 ML VIAL.NEB. INHALATION (17:06)
[2018-08-08] MEDS: Budesonide Respules 0.5 MG/2 ML AMPUL.NEB. INHALATION (17:06)
[2018-08-08] MEDS: Montelukast 10 MG Tablet PO (22:03)
[2018-08-09] VITALS (7 sets, daily range): BP systolic 102–113; BP diastolic 65–75; PULSE 64–80; RESP 16–18; TEMP 36.5–37.2; O2SAT 94–98
[2018-08-09] MEDS: oxyCODONE 5 MG Tablet 10 MG PO ×5 (00:35→21:33)
[2018-08-09] MEDS: Ibuprofen 600 MG Tablet PO (00:35)
[2018-08-09] MEDS: 0.9% Normal Saline 1,000 ML 125 ML IV ×3 (00:37→17:02)
[2018-08-09] MEDS: HYDROmorphone 1 MG/ML Syringe IV ×2 (03:35→14:49)
[2018-08-09 06:04] LABS: Anion Gap 9 (5-15); BUN 8 mg/dL (7-18); BUN/Creat Ratio 12.3 RATIO (10-20); Calcium,Total 7.2 mg/dL (8.5-10.1); Chloride 106 mmol/L (98-107); Creatinine, Serum 0.65 mg/dL (0.55-1.02); EST Glomerular Filtration Rate 108 mL/min (>60); Est Glom Filt Rate - Afr Amer 130 mL/min (>60); Estimated Creatinine Clearance 125.66 ml/min; Glucose 79 mg/dL (74-106); Potassium 3.9 mmol/L (3.5-5.1); Sodium Level 138 mmol/L (136-145)
[2018-08-09] MEDS: Ondansetron 4 MG/2 ML Vial IV ×2 (06:16→14:45)
[2018-08-09] MEDS: Albuterol 2.5 MG/3 ML VIAL.NEB. INHALATION ×3 (06:52→19:15)
[2018-08-09] MEDS: Budesonide Respules 0.5 MG/2 ML AMPUL.NEB. INHALATION ×2 (06:52→19:15)
[2018-08-09] MEDS: Pantoprazole Sodium 40 MG Tablet PO ×2 (08:30→21:33)
[2018-08-09] MEDS: Hydroxychloroquine 200 MG Tablet PO ×2 (08:30→16:58)
[2018-08-09] MEDS: Venlafaxine XR 150 MG Capsule PO (08:31)
[2018-08-09] MEDS: Enoxaparin 40 MG/0.4 ML Syringe SC (08:31)
--- NOTE | 2018-08-09 10:26 | PCM.PN.HOSP ---
Patient Problems: Active and Suspected Problems (Last Reviewed 08/07/18 @ 23:59 by Mary Beth Dunbar DO) Nausea & vomiting (Acute) Diarrhea (Acute) Abdominal pain (Acute) and epigastric Subjective: Patient complain of epigastric and left upper quadrant pain. Patient has history of chronic pain and fibromyalgia and has been on pain medications NSAIDs in the past and opioid medications recently. Patient also history of IBS, and lupus and and is on hydroxychloroquine. Vitals/I&O's: Vital Signs Temp Pulse Resp BP Pulse Ox 98.9 F 79 16 109/75 96 08/09/18 08:16 08/09/18 08:16 08/09/18 08:16 08/09/18 08:16 08/09/18 08:16 Oxygen Flow Rate (L/min) 2 Oxygen Delivery Method Room Air Weight: 249 lb 12.54 oz Body Mass Index (BMI) 35.8 Intake and Output for Last 24 Hours 08/07/18 08/08/18 08/09/18 23:59 23:59 23:59 Intake Total 3030 / 3030 2621 / 2621 Output Total 600 / 600 1200 / 1200 Balance 2430 / 2430 1421 / 1421 General: Alert, Oriented x3, Cooperative HEENT: Atraumatic, PERRLA, EOMI, Normocephalic Neck: Supple, No JVD, Negative Carotid Bruits Lungs: Clear to auscultation, No rhonchi, No wheeze, No rales, Diminished - Air entry diminished in bilateral lung bases Cardiovascular: Regular rate, No murmurs Abdomen: Bowel Sounds Present, Soft, Non-Distended, Tender - In epigastrium left upper quadrant Extremities: Capillary Refill Less than 3 Seconds, Edema Skin: No rashes, No breakdown Musculoskeletal: No Tenderness to Palpation of Joints or Extremities, Arthritic Changes Neurological: Cranial nerves II-XII grossly intact, Deep Tendon Reflexes 2+/4 and Symmetrical, Neuro grossly intact, Motor Exam 5/5 strength throughout Psych/Mental Status: Normal Affect, Appropriate Laboratory Results 08/08/18 10:40: WBC 7.6, RBC 4.30, Hgb 12.6, Hct 37.0, MCV 86.0, MCH 29.3, MCHC 34.1, RDW 13.4, RDW Differential 41.8, Plt Count 189, MPV 10.0 08/08/18 10:40: Sodium 137, Potassium 4.1, Chloride 104, Carbon Dioxide 25.0, Anion Gap 8, BUN 10, Creatinine 0.74, Estim Creat Clear Calc 110.37, Est GFR (MDRD) Af Amer 112, Est GFR (MDRD) Non-Af 93, BUN/Creatinine Ratio 13.5, Glucose 78, Calcium 7.3 L, Magnesium 2.1, Total Bilirubin 1.80 H, Direct Bilirubin 0.51 H, AST 290 H, ALT 263 H, Alkaline Phosphatase 159 H, Total Protein 7.0, Albumin 3.1 L, Globulin 3.9, Albumin/Globulin Ratio 0.8 L 08/09/18 05:32: Sodium 138, Potassium 3.9, Chloride 106, Carbon Dioxide 23.0, Anion Gap 9, BUN 8, Creatinine 0.65, Estim Creat Clear Calc 125.66, Est GFR (MDRD) Af Amer 130, Est GFR (MDRD) Non-Af 108, BUN/Creatinine Ratio 12.3, Glucose 79, Calcium 7.2 L Current Medications Albuterol Sulfate (Ventolin Aerosols) 2.5 mg INHALATION Q6HWA.RT [facility] Last Admin: 08/09/18 06:52 Dose: 2.5 mg Artificial Tears (Tears Naturale, Artificial Tears) 1 drop OPHTHALMIC Q2H PRN PRN PRN Reason: DRY EYES Budesonide (Pulmicort Aerosol) 0.5 mg INHALATION Q12H.RT [facility] Last Admin: 08/09/18 06:52 Dose: 0.5 mg Dicyclomine HCl (Bentyl) 20 mg PO Q6H PRN PRN PRN Reason: abdominal cramping Enoxaparin Sodium (Lovenox) 40 mg SC DAILY@1000 [facility] Last Admin: 08/09/18 08:31 Dose: 40 mg Fluticasone Propionate (Flonase Nasal [place]) 2 spray NASAL DAILY PRN PRN PRN Reason: ALLERGIES Hydromorphone HCl (Dilaudid Inj) 1 mg IV Q3H PRN PRN PRN Reason: SEVERE PAIN (6-10/10) Last Admin: 08/09/18 03:35 Dose: 1 mg Hydroxychloroquine Sulfate (Plaquenil) 200 mg PO BIDCM [facility] Last Admin: 08/09/18 08:30 Dose: 200 mg Sodium Chloride () 1,000 mls @ 125 mls/hr IV .Q8H [facility] Last Admin: 08/09/18 08:33 Dose: 125 mls/hr Ibuprofen (Motrin) 600 mg PO Q6H PRN PRN PRN Reason: PAIN Last Admin: 08/09/18 00:35 Dose: 600 mg Magnesium Hydroxide (Milk Of Magnesia) 30 ml PO DAILY PRN PRN PRN Reason: Constipation Montelukast Sodium (Singulair) 10 mg PO QHS [facility] Last Admin: 08/08/18 22:03 Dose: 10 mg Ondansetron HCl (Zofran) 4 mg IV Q6H PRN PRN PRN Reason: NAUSEA Last Admin: 08/09/18 06:16 Dose: 4 mg Oxycodone HCl (Oxyir) 10 mg PO Q4H PRN PRN PRN Reason: SEVERE PAIN (6-10/10) Last Admin: 08/09/18 10:16 Dose: 10 mg Pantoprazole Sodium (Protonix) 40 mg PO DAILY [facility] Last Admin: 08/09/18 08:30 Dose: 40 mg Sodium Chloride () 5 - 15 ml IV UD PRN PRN Reason: SALINE FLUSH Trazodone HCl (Desyrel) 100 mg PO QHS [facility] Last Admin: 08/09/18 00:02 Dose: Not Given [facility]) [facility] Last Admin: 08/09/18 08:31 Dose: 150 mg Medical Necessity - Tobacco Use Smoking Status: Never smoker Tobacco Use: Non-smoker Assessment/Plan All Active Problems (Last Reviewed 08/07/18 @ 23:59 by Mary Beth Dunbar DO) Nausea & vomiting (Acute) Diarrhea (Acute) Abdominal pain (Acute) Gastroenteritis (Acute) Asthma exacerbation (Acute) Pleurisy (Acute) Sinusitis (Acute) Asthma exacerbation (Acute) Patient is a 37-year-old lady with history of lupus on Plaquenil and Rituxan who presented with abdominal pain, mainly in epigastric and left upper quadrant. 1. Abdominal pain probably secondary to gastritis/GERD/PUD. Patient has been admitted to regular nursing floor for symptomatic management. Patient did not improve on conservative treatment with Protonix, oxycodone and IV fluid and therefore general surgery is being consulted. Discussed with Dr. Simmons who agreed for EGD but patient had breakfast in the morning and anesthesiologist did not agree for EGD in late afternoon. Being Sunday today, next is scheduled EGD only possible on Sunday. Protonix increased to 40 twice daily. If abdominal pain gets better, will discharge tomorrow and follow with Dr. Patiño outpatient EGD. DC NSAIDs. 2. SLE patient is on Plaquenil as well as Rituxan 3. Mild intermittent asthma with chronic pulmonary fibrosis currently not in exacerbation did continue with patient home regimen 4. Obstructive sleep apnea 5. GERD on PPI 6. Obesity with BMI of 35.8 7. DVT prophylaxis SC Lovenox Possible irritable bowel syndrome, pulmonary fibrosis/interstitial lung disease probably secondary to rheumatological disease, depression and obstructive sleep apnea. Multiple comorbidities complicates the present care and expect difficult and delay recovery Code Visit Inpatient E&M: 06102 Subs Hosp L2
[2018-08-09] MEDS: Montelukast 10 MG Tablet PO (21:33)
[2018-08-09] MEDS: traZODone 100 MG Tablet PO (21:33)
[2018-08-10] VITALS (7 sets, daily range): BP systolic 94–106; BP diastolic 52–63; PULSE 68–80; RESP 16–20; TEMP 36.6–36.8; O2SAT 94–97
[2018-08-10] MEDS: 0.9% Normal Saline 1,000 ML 125 ML IV ×2 (01:50→08:07)
[2018-08-10] MEDS: oxyCODONE 5 MG Tablet 10 MG PO ×3 (02:07→11:52)
[2018-08-10] MEDS: Ondansetron 4 MG/2 ML Vial IV ×2 (02:07→08:11)
[2018-08-10] MEDS: Albuterol 2.5 MG/3 ML VIAL.NEB. INHALATION ×2 (07:01→13:07)
[2018-08-10] MEDS: Budesonide Respules 0.5 MG/2 ML AMPUL.NEB. INHALATION (07:01)
--- NOTE | 2018-08-10 07:27 | NURSING ---
This nurse completed isolation orders d/t pt not having any stools in 2 days.
[2018-08-10] MEDS: Hydroxychloroquine 200 MG Tablet PO (08:01)
[2018-08-10] MEDS: Pantoprazole Sodium 40 MG Tablet PO (08:01)
[2018-08-10] MEDS: Venlafaxine XR 150 MG Capsule PO (08:01)
[2018-08-10] MEDS: Enoxaparin 40 MG/0.4 ML Syringe SC (08:01)
[2018-08-10 08:08] LABS: Anion Gap 6 (5-15); BUN 7 mg/dL (7-18); BUN/Creat Ratio 11.1 RATIO (10-20); Calcium,Total 7.3 mg/dL (8.5-10.1); Chloride 109 mmol/L (98-107); Creatinine, Serum 0.63 mg/dL (0.55-1.02); EST Glomerular Filtration Rate 112 mL/min (>60); Est Glom Filt Rate - Afr Amer 135 mL/min (>60); Estimated Creatinine Clearance 129.65 ml/min; Glucose 82 mg/dL (74-106); Potassium 3.7 mmol/L (3.5-5.1); Sodium Level 140 mmol/L (136-145)
[2018-08-10] MEDS: 0.9% NaCl Peripheral Flush Adult/Peds IV (08:11)
--- NOTE | 2018-08-10 08:19 | NURSING ---
Ordered Breakfast up to toilet. Zofran given per request so can eat breakfast.
--- NOTE | 2018-08-10 09:56 | PCM.DC ---
- Discharge Diagnoses Current Active Problems: Current Active and Chronic Problems (Last Reviewed 08/07/18 @ 23:59 by Mary Beth Dunbar DO) Nausea & vomiting (Acute) Diarrhea (Acute) Abdominal pain (Acute) and epigastric You will use the following diet at home:: Regular - low residue diet Your food should be the consistency of: Regular Discharge Activity: May Not Drive - for 2 weeks till F/U PCP Call your doctor if you observe: Fever of 101 or Higher, Inability to urinate, Inability to have a bowel movement, Shortness of breath, Fainting spells, Chest pain, Increased palpitations (irregular heartbeat), Uncontrolled pain Allergies/Adverse Reactions: Allergies amoxicillin Allergy (Verified 05/13/18 21:55) Nausea/Vom/Diarrhea hydrocodone bitartrate [From Vicodin] Allergy (Verified 05/13/18 21:55) Swelling metronidazole [From Flagyl] Adverse Reaction (Verified 05/13/18 21:55) Nausea morphine Adverse Reaction (Verified 05/13/18 21:55) Chest tightness Medications to take at Discharge Rituxan See Rx Instructions IV .COMPLEX 09/06/17 cyclosporine 0.05 % eye drops in a dropperette 1 drp OPHTHALMIC Q12H 09/06/17 albuterol sulfate HFA 90 mcg/actuation aerosol inhaler 1 - 2 puff INHALATION Q6H PRN PRN #1 device 09/11/17 montelukast 10 mg tablet 10 mg PO DAILY #30 tab 09/11/17 mometasone-formoterol HFA 200 mcg-5 mcg/actuation aerosol inhaler 2 puff INHALATION BID #1 device 07/31/18 traZODone [Desyrel] 100 mg PO QHS 08/07/18 Fluticasone 0.05% [Flonase Nasal [place]] 2 spray NASAL DAILY PRN PRN 08/08/18 Venlafaxine XR [Effexor Xr] 150 mg PO DAILY 08/08/18 Hydroxychloroquine [Plaquenil] 200 mg PO BIDCM #180 tab 08/10/18 Pantoprazole Sodium [Protonix] 40 mg PO BID #60 tablet 08/10/18 Sucralfate [Carafate] 1 gm PO 4X/DAY #560 ml 08/10/18 The following prescriptions were given: Pantoprazole Sodium [Protonix] 40 mg PO BID #60 tablet Sucralfate [Carafate] 1 gm PO 4X/DAY #560 ml Primary Care Physician: Kelli Ram MD [Primary Care Provider] - Please follow up with your Primary Care Physician in: IN 1-2 WEEKS Test Results: Test results from this visit will be discussed in further detail at your follow-up appointment, if applicable. Please Follow Up With: Ronald Simmons MD When: [place] 08/12/18
--- NOTE | 2018-08-10 09:58 | DS.PCM_ITS ---
Discharge Date and Diagnosis - Problem List Patient Problems: Active and Suspected Problems (Last Reviewed 08/07/18 @ 23:59 by Mary Beth Dunbar DO) Nausea & vomiting (Acute) Diarrhea (Acute) Abdominal pain (Acute) and epigastric Date of Admission: 08/07/18 Date of Discharge: 08/10/18 - Primary Discharge Diagnosis Active and Suspected Problems (Last Reviewed 08/07/18 @ 23:59 by Mary Beth Dunbar DO) Nausea & vomiting (Acute) Diarrhea (Acute) Abdominal pain (Acute) and epigastric - Secondary Discharge Diagnosis Chronic Problems (Last Reviewed 08/07/18 @ 23:59 by Mary Beth Dunbar DO) Chronic pain (Chronic) Depression with anxiety (Chronic) SLE (systemic lupus erythematosus) (Chronic) Sleep apnea (Chronic) Vascular disease (Chronic) IBS (irritable bowel syndrome) (Chronic) Hearing problem (Chronic) Anemia (Chronic) Rheumatoid arthritis (Chronic) Hypersomnia (Chronic) Allergic rhinitis (Chronic) Shortness of breath (Chronic) Interstitial lung disease (Chronic) Lupus (Chronic) Asthma (Chronic) Bronchitis (Chronic) Depression (Chronic) Pulmonary fibrosis (Chronic) Pulmonary nodule (Chronic) GERD (gastroesophageal reflux disease) (Chronic) MYRTLE (obstructive sleep apnea) (Chronic) Allergic rhinitis (Chronic) Hospital Course and Treatment Summary of Care Provided: [] Patient is a 37-year-old lady with history of lupus on Plaquenil and Rituxan who presented with abdominal pain, mainly in epigastric and left upper quadrant. 1. Abdominal pain probably secondary to gastritis/GERD/PUD/medication induced Plaquenil, Rituxan. Patient has been admitted to regular nursing floor for symptomatic management. Initially, patient intermittently with IV Protonix, oxycodone and IV fluid and therefore general surgery was consulted. Discussed with Dr. Simmons who agreed for EGD but patient had breakfast in the morning and anesthesiologist did not agree for EGD in late afternoon. Therefore, next EGD on only possible on Sunday but patient abdominal pain got better today and wants to go home. Patient was advised to call Dr. Patiño office to arrange for outpatient EGD on Sunday. Dr. Patiño is aware of her history. Protonix increased to 40 twice daily. Patient was advised to hold Plaquenil, Rituxan as she gets every 2 weeks. Advised to continue Protonix 40 mg twice daily, Carafate 1 g 4 times daily and follow-up with Dr. Simmons 2. SLE patient is on Plaquenil as well as Rituxan: These medications were held during hospital stay and was advised to hold until patient gets EGD and her a bdominal pain is resolved. 3. Mild intermittent asthma with chronic pulmonary fibrosis currently not in exacerbation probably related to lupus or rheumatological disease. continue with patient home regimen 4. Obstructive sleep apnea 5. GERD on PPI 6. Obesity with BMI of 35.8 7. DVT prophylaxis SC Lovenox Possible irritable bowel syndrome, pulmonary fibrosis/interstitial lung disease probably secondary to rheumatological disease, depression and obstructive sleep apnea. Multiple comorbidities complicates the present care and expect difficult and delay recovery Discharge medication reconciliation done. Follow-up instructions completed. Prescription for Protonix and Carafate given. Total time spent, exact 35 minutes on discharge meds reconciliation, examination, review of imaging and blood test and discussion with the patient on follow-up instructions. Patient Problems: Active and Suspected Problems (Last Reviewed 08/07/18 @ 23:59 by Mary Beth Dunbar DO) Nausea & vomiting (Acute) Diarrhea (Acute) Abdominal pain (Acute) and epigastric Subjective: Seen and examined. Patient abdominal pain is improved but has not resolved completely. - Physical Exam General: Alert, Oriented x3, Cooperative HEENT: Atraumatic, PERRLA, EOMI, Normocephalic Neck: Supple, No JVD, Negative Carotid Bruits Lungs: Clear to auscultation, Normal air movement Cardiovascular: Regular rate, Regular Rhythm, Normal S1, Normal S2, No murmurs Abdomen: Bowel Sounds Present, Soft, Tender - Tenderness has improved in the epigastric and left upper quadrant. No rebound tenderness. No guarding/rigidity Extremities: No edema, Capillary Refill Less than 3 Seconds Skin: No rashes, No breakdown Musculoskeletal: No Tenderness to Palpation of Joints or Extremities, Arthritic Changes Neurological: Cranial nerves II-XII grossly intact Psych/Mental Status: Normal Affect, Appropriate Vital Signs Temp Pulse Resp BP Pulse Ox 97.9 F 75 20 H 104/60 95 08/10/18 08:05 08/10/18 08:05 08/10/18 08:05 08/10/18 08:05 08/10/18 08:05 Oxygen Flow Rate (L/min) 2 Oxygen Delivery Method Room Air Weight: 249 lb 12.54 oz Body Mass Index (BMI) 35.8 Intake and Output for Last 24 Hours 08/08/18 08/09/18 08/10/18 23:59 23:59 23:59 Intake Total 3030 / 3030 2621 / 2621 1865 / 1865 Output Total 600 / 600 1200 / 1200 1425 / 1425 Balance 2430 / 2430 1421 / 1421 440 / 440 Laboratory Tests Past 24 Hrs 08/10/18 07:01 Sodium 140 Potassium 3.7 Chloride 109 H Carbon Dioxide 25.0 Anion Gap 6 BUN 7 Creatinine 0.63 Estim Creat Clear Calc 129.65 Est GFR (MDRD) Af Amer 135 Est GFR (MDRD) Non-Af 112 BUN/Creatinine Ratio 11.1 Glucose 82 Calcium 7.3 L Discharge Activity: May Not Drive - for 2 weeks till F/U PCP Call your doctor if you observe: Fever of 101 or Higher, Inability to urinate, Inability to have a bowel movement, Shortness of breath, Fainting spells, Chest pain, Increased palpitations (irregular heartbeat), Uncontrolled pain Home Medications: Medications to take at Discharge Rituxan See Rx Instructions IV .COMPLEX 09/06/17 cyclosporine 0.05 % eye drops in a dropperette 1 drp OPHTHALMIC Q12H 09/06/17 albuterol sulfate HFA 90 mcg/actuation aerosol inhaler 1 - 2 puff INHALATION Q6H PRN PRN #1 device 09/11/17 montelukast 10 mg tablet 10 mg PO DAILY #30 tab 09/11/17 mometasone-formoterol HFA 200 mcg-5 mcg/actuation aerosol inhaler 2 puff INHALATION BID #1 device 07/31/18 traZODone [Desyrel] 100 mg PO QHS 08/07/18 Fluticasone 0.05% [Flonase Nasal [place]] 2 spray NASAL DAILY PRN PRN 08/08/18 Venlafaxine XR [Effexor Xr] 150 mg PO DAILY 08/08/18 Hydroxychloroquine [Plaquenil] 200 mg PO BIDCM #180 tab 08/10/18 Pantoprazole Sodium [Protonix] 40 mg PO BID #60 tablet 08/10/18 Sucralfate [Carafate] 1 gm PO 4X/DAY #560 ml 08/10/18 Following Prescrptions Were Given to Patient: Pantoprazole Sodium [Protonix] 40 mg PO BID #60 tablet Sucralfate [Carafate] 1 gm PO 4X/DAY #560 ml Primary Care Physician: Kelli Ram MD [Primary Care Provider] - Please follow up with your Primary Care Physician in: IN 1-2 WEEKS Please Follow Up With: Ronald Simmons MD When: [facility] ON 08/12/18 Medical Necessity - Tobacco Use Smoking Status: Never smoker Tobacco Use: Non-smoker Meaningful Use Info Meaningful Use Diagnoses (Choose all that apply): None applicable Code Visit Inpatient E&M: 63248 Disch Hosp
[2018-08-10] MEDS: Dicyclomine 10 MG Capsule 20 MG PO (11:52)
--- NOTE | 2018-08-10 14:40 | NURSING ---
This nurse called Dr. Campbell Regarding pts low BP that was taken recently. BP 94/58. Denies feeling dizzyness or lightheaded. Dr. Campbell wants orthos. He is aware that pt IV has already been taking out. Wants her also to drink 500cc water right now.
== END 2018-08-10 15:16 | disposition home or self-care (01) ==
LOC: ED 20:30 → MS3 08-08 00:25
PROVIDERS: Internal Medicine; Admitting Provider Internal Medicine; Emergency Provider Emergency Medicine; Family Provider Internal Medicine; PCP Internal Medicine; Visit Provider Internal Medicine
DX: R10.13 Epigastric pain (principal); R11.2 Nausea with vomiting, unspecified; F41.8 Other specified anxiety disorders; M06.9 Rheumatoid arthritis, unspecified; K21.9 Gastro-esophageal reflux disease without esophagitis; G47.33 Obstructive sleep apnea (adult) (pediatric); M32.9 Systemic lupus erythematosus, unspecified; K58.0 Irritable bowel syndrome with diarrhea; J84.10 Pulmonary fibrosis, unspecified; R91.1 Solitary pulmonary nodule; G89.29 Other chronic pain; E66.01 Morbid (severe) obesity due to excess calories; Z68.35 Body mass index [BMI] 35.0-35.9, adult; Z71.3 Dietary counseling and surveillance; Z79.899 Other long term (current) drug therapy; J45.20 Mild intermittent asthma, uncomplicated
CPT/HCPCS: 36415; 74176; 80048; 80053; 80076; 81001; 83690; 83735; 84484; 84703; 85025; 85027; 85379; 85652; 86140; 93005; 94640; 96361; 96372; 96374; 96375; 96376; 99218; 99285; J7030; A4216; G0378; J2405

== ENCOUNTER 2018-09-17 15:34 | Emergency (ER) | payer MEDICAID, SELFPAY ==
[2018-08-08 00:37] VITALS: BMI 35.8
[2018-09-17 15:34] VITALS: BP 120/82; PULSE 71; RESP 16; TEMP 36.3; O2SAT 100; BMI 34.4
--- NOTE | 2018-09-17 15:48 | CT_ITS ---
STUDY: CT PELVIS WITHOUT CONTRAST REASON FOR EXAM: Female, 38 years old. Fell down stairs and injured coccyx RADIATION DOSAGE (If Supplied By Facility): CTDIvol = ( 25.74 ) mGy, DLP = ( 660.45 ) mGycm TECHNIQUE: Transaxial imaging of the pelvis was performed without oral contrast, and without intravenous administration of contrast material. Individualized dose optimization techniques were used for this CT. COMPARISON: None. FINDINGS: Normal urinary bladder. Normal visualized small intestine. Normal visualized colon. There is no pelvic fluid. There is no pelvic mass lesion or lymphadenopathy. Normal visualized pelvic arteries. Normal abdominal wall. Normal osseous structures. CT/Pelvis without IV Contrast IMPRESSION: Normal unenhanced CT of the pelvis. No sacrococcygeal fracture noted. Electronically Signed: Hector Lewis MD at 16:39 EST , Service support ,
--- NOTE | 2018-09-17 15:54 | RAD_ITS ---
STUDY: X-RAY - RIGHT WRIST REASON FOR EXAM: Female, 38 years old. Fell and injured right wrist TECHNIQUE: 4 view(s) of the wrist were obtained. COMPARISON: None. FINDINGS: Normal visualized distal radius and ulna. Old avulsion fracture ulnar styloid. Normal radiocarpal articulation. Normal distal radioulnar articulation. Normal carpal bones. Normal carpal articulations. Plate and screws transfix volar aspect of the distal radius. Normal carpometacarpal articulation of the thumb. Normal second through fifth carpometacarpal articulations. Normal visualized metacarpal bones. The soft tissue structures are unremarkable. RAD/Wrist min 3 Views IMPRESSION: Hardware distal radius. No acute fracture. Electronically Signed: Hector Lewis MD at 17:02 EST , Service support ,
[2018-09-17] MEDS: Ibuprofen 400 MG Tablet 800 MG PO (16:04)
--- NOTE | 2018-09-17 16:10 | ED.VISSUMM ---
- ER Visit Summary Date of Service: 09/17/18 Chief Complaint: Tailbone pain History of Present Illness: The patient is a 38 F who states that around 1030 this morning she sustained a fall down the stairs. She states that she landed on her buttocks. She notes pain in the right wrist particularly laterally. She hit the back of her head but no loss of consciousness. Patient states that most of her pain is in her tailbone. She states that her buttocks are starting to go numb. She denies any other injuries. She reports taking Tylenol without help. Physical Examination: Afebrile vital signs stable Gen: Well-nourished well-developed Head: Normocephalic atraumatic Eyes: Perrl EOMI ENT: TMs clear no rhinorrhea moist mucous membranes Neck: Supple no lymphadenopathy no JVD nontender CVS: Regular rate rhythm no murmurs normal S1-S2 Respiratory: No distress clear to auscultation bilaterally chest nontender Abdomen: Soft nontender nondistended normal bowel sounds no masses Back: Tenderness over the sacrum in the midline. There is no ecchymosis. Extremity: Nontender no edema Skin: Normal color no rash Neuro: alert orientated ?3 CN II-XII intact normal strength sensation reflexes gait cerebellar Psych: Normal affect normal mood Test Results: CT of the pelvis was negative for fracture or intrapelvic blood. X-rays of the wrist were negative for fracture. Emergency Department Course and Treatment: She received Motrin. She will be discharged home with supportive care following up with her primary care if not improving Impression: 1. Sacrococcygeal contusion 2. Right wrist sprain This note was generated with [employer] dictation software. It may contain incorrect words, spelling, and punctuation that were not noted in review of the chart prior to signing ED Disposition - Plan for ED Patient: Disposition: Home or Assisted Living Chief Complaint: Fall Instructions: ED Contusion Sacrum Coccyx Referrals: Kelli Ram MD [Primary Care Provider] - 10-14 Days if not better
[2018-09-17 17:29] LABS: Red Blood Cells-Urine 0 SEEN /hpf (0-5)
[2018-09-17 17:47] LABS: Color, Urine Yellow (Yellow); Glucose, Dipstick Normal (Normal); Ketone-Dipstick Negative (Negative); Leukocyte Esterase-Dipstick 25 /ul (Negative); Nitrite-Dipstick Negative (Negative); Occult Blood-Urine 25 /ul (Negative); Protein-Dipstick Negative (Negative); Urine Bilirubin Dipstick Negative (Negative); Urine Clarity Clear (Clear); Urine Urobilinogen Normal (Normal)
[2018-09-17 17:48] LABS: Internal QC Validated? YES +Cl - CLEAR BKGD; Pregnancy, Urine Negative Negative
[2018-09-17 18:22] LABS: White Blood Cells 0-5 SEEN /hpf (0-5)
[2018-09-17 18:23] LABS: Bacteria 1+ /hpf (None Seen); Mucous, Urine RARE /hpf (<or=2+); Squamous Epithelial Cells - UA 0-5 SEEN /hpf (5-10)
== END 2018-09-17 17:45 | disposition home or self-care (01) ==
PROVIDERS: Emergency Provider Emergency Medicine; Family Provider Internal Medicine; PCP Internal Medicine
DX: S30.0XXA Contusion of lower back and pelvis, initial encounter (principal); S63.501A Unspecified sprain of right wrist, initial encounter; J45.909 Unspecified asthma, uncomplicated; K21.9 Gastro-esophageal reflux disease without esophagitis; M32.9 Systemic lupus erythematosus, unspecified; M06.9 Rheumatoid arthritis, unspecified; G47.33 Obstructive sleep apnea (adult) (pediatric); Z79.51 Long term (current) use of inhaled steroids; Z79.899 Other long term (current) drug therapy; W10.9XXA Fall (on) (from) unspecified stairs and steps, initial encounter; Y93.89 Activity, other specified; Y92.89 Other specified places as the place of occurrence of the external cause; Y99.8 Other external cause status
CPT/HCPCS: 72192; 73110; 81001; 81025; 99283

== ENCOUNTER 2018-10-17 22:17 | Emergency (ER) | payer MEDICAID, SELFPAY ==
[2018-10-17 22:18] VITALS: PULSE 95; RESP 16; TEMP 36.6; O2SAT 95; BMI 34.7
[2018-10-17 22:27] VITALS: O2SAT 97
[2018-10-17] MEDS: predniSONE 20 MG Tablet 60 MG PO (22:38)
[2018-10-17] MEDS: Ipratropium/Albuterol Sulfate 3 ML AMPUL.NEB INHALATION (22:41)
[2018-10-17] MEDS: Albuterol 2.5 MG/3 ML VIAL.NEB. INHALATION ×3 (22:41→22:42)
[2018-10-17 22:42] VITALS: PULSE 90; RESP 18
--- NOTE | 2018-10-17 22:55 | ED.DCSUM_ITS ---
- ER Visit Summary Date of Service: 10/17/18 Chief Complaint: Asthma History of Present Illness: The patient is a 38 F with a history of asthma along with lupus and interstitial lung disease secondary to lupus, possible pulmonary fibrosis. Patient reports increased shortness of breath since yesterday. She reports shortness of breath, wheezing, and cough. She reports chills and sweats but no measured fever. She states she has quite a bit of chest congestion but she is not bringing up any sputum. Her mother was recently diagnosed with RSV and pneumonia. Physical Examination: Vital signs grossly unremarkable. Respiratory rate is 16 and pulse ox is 95% on room air. Patient is sitting upright in bed. She has frequent dry cough. Head neck examination was mild posterior pharyngeal drainage. Uvula midline. Heart is regular rate and rhythm. Lungs sounds with expiratory wheezes throughout. Abdomen is soft nontender. Test Results: Two-view chest x-ray is unremarkable. Emergency Department Course and Treatment: Viral respiratory panel has been sent. Patient received aerosols and p.o. prednisone here. On repeat evaluation she has significantly improved air movement throughout. O2 sat is 97% on room air. Patient be discharged with a prescription for prednisone. She has an appointment with her primary care physician at 9 AM tomorrow morning. I did advise her that the results of the viral panel will not be back until tomorrow. If there is a positive finding she will be called and updated. Treatment Plan: [] Disposition: Discharge Impression: Asthma exacerbation secondary to viral URI This note was generated with [employer] dictation software. It may contain incorrect words, spelling, and punctuation that were not noted in review of the chart prior to signing ED Disposition - Plan for ED Patient: Referrals: Kelli Ram MD [Primary Care Provider] -
--- NOTE | 2018-10-17 23:00 | RAD_ITS ---
STUDY: X-RAY CHEST REASON FOR EXAM: Female, 38 years old. Cough. History of asthma. TECHNIQUE: PA and lateral views of the chest. COMPARISON: February 08, 2018. FINDINGS: The lungs are clear and expanded. There is no demonstrated pleural abnormality. Normal size heart. Normal mediastinum and germán. Normal visualized pulmonary arteries. Normal visualized aortic arch and descending thoracic aorta. Normal visualized thoracic spine. Normal visualized ribs, clavicles, and shoulders. There is no demonstrated abnormality of the visualized soft tissue structures of the upper abdomen. RAD/Chest PA and Lateral IMPRESSION: No acute cardiopulmonary disease or interval change. Electronically Signed: Mitch Emerson DO at 23:16 EST Tel [phone], Service support ,
--- NOTE | 2018-10-17 23:24 | ED.DEP ---
ED Disposition - Plan for ED Patient: Disposition: Home or Assisted Living Instructions: ED Bronchitis Asthmatic Prescriptions: Prednisone 10 mg PO UD #33 tablet Referrals: Kelli Ram MD [Primary Care Provider] - Keep Leigh appointment
[2018-10-17 23:30] VITALS: PULSE 95; RESP 16; O2SAT 98
== END 2018-10-17 23:30 | disposition home or self-care (01) ==
PROVIDERS: Emergency Provider Emergency Medicine; Family Provider Internal Medicine; PCP Internal Medicine
DX: J45.901 Unspecified asthma with (acute) exacerbation (principal); J06.9 Acute upper respiratory infection, unspecified; M06.9 Rheumatoid arthritis, unspecified
CPT/HCPCS: 71046; 87633; 94640; 99283

== ENCOUNTER 2019-04-06 14:30 | Emergency (ER) | payer MEDICAID, SELFPAY ==
[2018-10-22 16:32] VITALS: BMI 34.7
[2019-04-06 14:31] VITALS: BP 105/70; PULSE 72; RESP 20; TEMP 36.6; O2SAT 98; BMI 33.0
--- NOTE | 2019-04-06 15:32 | ED.VIS.GEN ---
History of Present Illness Chief Complaint: Back Detail of Chief Complaint: Back pain radiating down left leg Informant: Patient Onset: Days Context: Gradual Onset Current Severity: Moderate Maximum Severity: Moderate Narrative: Patient states she bent over a couple days ago and felt a pulling sensation in her left lower back. She now has worsened pain to this area with pain radiating down to her foot. She denies prior problems with sciatica. She states she fell around 4 months ago but did not have back pain after that fall. No problems with bowel or bladder control. No paresthesias. Past Medical History - Allergies and Home Meds Allergies/Adverse Reactions: Allergies amoxicillin Allergy (Verified 04/06/19 14:33) Nausea/Vom/Diarrhea hydrocodone bitartrate [From Vicodin] Allergy (Verified 04/06/19 14:33) Swelling metronidazole [From Flagyl] Adverse Reaction (Verified 04/06/19 14:33) Nausea morphine Adverse Reaction (Verified 04/06/19 14:33) Chest tightness Primary Care Physician: Kelli Ram MD [Primary Care Provider] - Prior records reviewed: Yes Past Medical History: - - Reviewed Surgical History: noncontributory Lives: With Family Smoking Status: Never smoker Review of Systems General: Denies: Chills, Fever Eyes: Denies: Visual changes - bilaterally ENT: Denies: Bilateral ear pain Cardiovascular: Denies: Chest pain Respiratory: Denies: Dyspnea, Cough Gastrointestinal: Reports: Abdominal pain. Denies: Nausea, Vomiting, Diarrhea Genitourinary: Denies: Dysuria Musculoskeletal: Reports: Back pain Skin: Denies: Rash, Abrasions Neurological: Denies: Headache, Parasthesia, Numbness Endocrine: Denies: Polyuria, Polydipsia Hematologic: Denies: Easy bruising Allergy: Denies: Uticaria Physical Exam Vital Signs/Narrative: Vital Signs Temp Pulse Resp BP Pulse Ox 04/06/19 14:31 98 F 72 20 H 105/70 98 Inital Vital Signs reviewed: Yes General: Well nourished, Well developed Eyes: Perrl, EOMI ENT: Moist mucous membranes Cardiovascular: Regular rate, Regular rhythm Respiratory: No distress, CTA bilaterally Abdomen: Soft, Tender - Mild epigastric tenderness., Hypoactive bowel sounds. Negative for: Guarding, Rebound tenderness Back: Spinal tenderness - Tenderness in the left low lumbar paraspinals and over the sciatic notch. Extremities: Nontender Skin: Normal color, No rash Neurological: Alert, Oriented x3, Normal Sensation, Normal DTR - 1+ bilateral patellar reflexes Psychological: Normal affect Diagnostic/Tx/Re-eval - Medical Decision Making Patient was given Percocet and Flexeril. This was followed by a dose of prednisone. Clinically the patient has lumbar paraspinal spasm with sciatica. I do not believe imaging is needed at this time. Patient be given prescriptions for the same. ED Disposition - Plan for ED Patient: Disposition: Home or Assisted Living Diagnosis: Sciatica Instructions: BACK PAIN w/ SCIATICA Prescriptions: cycloBENZAPRine HCl [Flexeril] 10 mg PO TID PRN #20 tablet PRN Reason: Muscle Spasm Oxycodone HCl/Acetaminophen [Percocet 5/325] 1 tablet PO Q6H PRN PRN 5 Days #20 tablet PRN Reason: Pain Prednisone 10 mg PO DAILY #63 tablet Referrals: Kelli aRm MD [Primary Care Provider] - 1 Week if not improving
[2019-04-06] MEDS: oxyCODONE 5 MG Tablet 10 MG PO (15:45)
[2019-04-06] MEDS: cycloBENZAPRine HCl 10 MG Tablet PO (15:45)
[2019-04-06] MEDS: predniSONE 20 MG Tablet 40 MG PO (16:38)
[2019-04-06 17:15] VITALS: PULSE 78; RESP 14
== END 2019-04-06 17:16 | disposition home or self-care (01) ==
PROVIDERS: Emergency Provider Emergency Medicine; Family Provider Internal Medicine; PCP Internal Medicine
DX: M54.42 Lumbago with sciatica, left side (principal)
CPT/HCPCS: 99283

== ENCOUNTER 2019-04-29 23:05 | Emergency (ER) | payer MEDICAID, SELFPAY ==
[2019-04-29 23:06] VITALS: BP 133/83; PULSE 84; RESP 17; TEMP 36.1; O2SAT 98; BMI 34.9
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
[2019-04-30 00:15] LABS: Mucous, Urine 0 SEEN /hpf (<or=2+)
[2019-04-30 00:19] LABS: Glucose, Dipstick Normal (Normal); Ketone-Dipstick Negative (Negative); Leukocyte Esterase-Dipstick 100 /ul (Negative); Nitrite-Dipstick Positive (Negative); Occult Blood-Urine 25 /ul (Negative); Protein-Dipstick 15 mg/dl (Negative); Urine Clarity Sl. Cloudy (Clear); Urine Urobilinogen 8 mg/dl (Normal)
[2019-04-30 00:22] LABS: Color, Urine SEE COMMENT BELOW (Yellow); Urine Bilirubin Dipstick 3 mg/dL (Negative)
[2019-04-30 00:26] LABS: Bacteria 1+ /hpf (None Seen); Red Blood Cells-Urine 0-5 SEEN /hpf (0-5); Squamous Epithelial Cells - UA 0-5 SEEN /hpf (5-10); White Blood Cells 10-25 SEEN /hpf (0-5)
[2019-04-30 00:55] VITALS: BP 122/80; PULSE 64; RESP 18; O2SAT 97
--- NOTE | 2019-04-30 01:01 | ED.RN ---
PT GIVEN WRITTEN AND VERBAL DISCHARGE INSTRUCTIONS AND HOME GOING PRESCRIPTIONS. PT VERBALIZES UNDERSTANDING AND DENIES ANY FURTHER QUESTIONS. PT AMBULATES OUT OF DEPT BY SELF.
== END 2019-04-30 01:02 | disposition home or self-care (01) ==
PROVIDERS: Emergency Provider Emergency Medicine; Family Provider Internal Medicine; PCP Internal Medicine
DX: S00.33XA Contusion of nose, initial encounter (principal); S60.221A Contusion of right hand, initial encounter; N30.90 Cystitis, unspecified without hematuria; Y08.89XA Assault by other specified means, initial encounter; Y93.89 Activity, other specified; Y92.009 Unspecified place in unspecified non-institutional (private) residence as the place of occurrence of the external cause; Y99.8 Other external cause status
CPT/HCPCS: 70160; 73130; 81001; 99282

== ENCOUNTER 2019-05-29 11:22 | Emergency (ER) | payer MEDICAID, SELFPAY ==
[2019-05-29 11:23] VITALS: BP 106/79; PULSE 90; RESP 20; TEMP 36.6; O2SAT 96; BMI 33.2
--- NOTE | 2019-05-29 11:56 | ED.DCSUM_ITS ---
History of Present Illness Chief Complaint: Nausea/Vomiting/Diarrhea Detail of Chief Complaint: Cold symptoms Informant: Patient Onset: Weeks Current Severity: Moderate Maximum Severity: Moderate Narrative: Patient states she is had upper respiratory symptoms for the last week or so. She is bringing up yellow-colored sputum. She does feel she is wheezing and has been using her inhaler. She denies fever. Last evening she developed epigastric and left upper quadrant abdominal pain. She had nausea, vomiting, and diarrhea since last evening. Past Medical History - Allergies and Home Meds Allergies/Adverse Reactions: Allergies amoxicillin Allergy (Verified 05/29/19 11:26) Nausea/Vom/Diarrhea hydrocodone bitartrate [From Vicodin] Allergy (Verified 05/29/19 11:26) Swelling metronidazole [From Flagyl] Adverse Reaction (Verified 05/29/19 11:26) Nausea morphine Adverse Reaction (Verified 05/29/19 11:26) Chest tightness Primary Care Physician: Kelli Ram MD [Primary Care Provider] - Prior records reviewed: Yes Past Medical History: - - Reviewed Surgical History: noncontributory Lives: Spouse/ Significant Other Smoking Status: Never smoker Review of Systems General: Denies: Chills, Fever Eyes: Reports: - - Drainage from right eye. Denies: Visual changes - bilaterally ENT: Denies: Bilateral ear pain Cardiovascular: Denies: Chest pain Respiratory: Reports: Dyspnea, Cough, Sputum Gastrointestinal: Reports: Abdominal pain, Nausea, Vomiting, Diarrhea Genitourinary: Denies: Dysuria Musculoskeletal: Reports: Myalgias Skin: Denies: Rash Physical Exam Vital Signs/Narrative: Vital Signs Temp Pulse Resp BP Pulse Ox 05/29/19 11:23 98 F 90 20 H 106/79 96 Inital Vital Signs reviewed: Yes General: Well nourished, Well developed Head: Normocephalic Eyes: EOMI ENT: Moist mucous membranes Neck: Supple Cardiovascular: Regular rate, Regular rhythm Respiratory: No distress, CTA bilaterally Abdomen: Soft, Tender - Epigastric tenderness to palpation., Hypoactive bowel sounds. Negative for: Guarding, Rebound tenderness Extremities: Nontender Skin: Normal color, No rash Neurological: Alert, Oriented x3 Psychological: Normal affect Diagnostic/Tx/Re-eval Impressions Chest X-Ray 05/29/19 12:45 IMPRESSION: Normal x-ray examination of the chest. Electronically Signed: Jamar Tovar, at 13:02 EDT , Service support , 05/29/19 12:45 Chest PA and Lateral [RAD] Stat Laboratory Results 05/29/19 05/29/19 05/29/19 12:08 12:08 12:08 WBC 10.3 RBC 4.66 Hgb 14.5 Hct 41.5 MCV 89.1 MCH 31.1 MCHC 34.9 RDW Std Deviation 42.4 RDW Coeff of Tiesha 13.0 Plt Count 227 MPV 10.2 Immature Gran % (Auto) 0.500 Neut % (Auto) 65.5 Lymph % (Auto) 25.8 [place] % (Auto) 6.5 Eos % (Auto) 1.3 Baso % (Auto) 0.4 Absolute Neuts (auto) 6.8 Absolute Lymphs (auto) 2.66 Nucleated RBC % 0 Sodium 142 Potassium 4.0 Chloride 109 H Carbon Dioxide 25.0 Anion Gap 8 BUN 11 Creatinine 0.84 Estim Creat Clear Calc 93.04 Est GFR (MDRD) Af Amer 96 Est GFR (MDRD) Non-Af 79 BUN/Creatinine Ratio 13.0 Glucose 90 Calcium 8.2 L Total Bilirubin 1.00 Direct Bilirubin 0.20 AST 30 ALT 28 Alkaline Phosphatase 84 Total Protein 7.4 Albumin 3.2 Globulin 4.2 Lipase 169 Serum , Qual NEGATIVE Urine Color Urine Clarity Urine pH Ur Specific [place] Urine Protein Urine Glucose (UA) Urine Ketones Urine Occult Blood Urine Nitrite Urine Bilirubin Urine Urobilinogen Ur Leukocyte Esterase Urine RBC Urine WBC Ur Squamous Epith Cells Urine Bacteria Urine Mucus 05/29/19 12:16 WBC RBC Hgb Hct MCV MCH MCHC RDW Std Deviation RDW Coeff of Tiesha Plt Count MPV Immature Gran % (Auto) Neut % (Auto) Lymph % (Auto) [place] % (Auto) Eos % (Auto) Baso % (Auto) Absolute Neuts (auto) Absolute Lymphs (auto) Nucleated RBC % Sodium Potassium Chloride Carbon Dioxide Anion Gap BUN Creatinine Estim Creat Clear Calc Est GFR (MDRD) Af Amer Est GFR (MDRD) Non-Af BUN/Creatinine Ratio Glucose Calcium Total Bilirubin Direct Bilirubin AST ALT Alkaline Phosphatase Total Protein Albumin Globulin Lipase Serum , Qual Urine Color Yellow Urine Clarity Sl. Cloudy Urine pH 6.0 Ur Specific [place] 1.020 Urine Protein 15 H Urine Glucose (UA) Normal Urine Ketones Negative Urine Occult Blood Negative Urine Nitrite Negative Urine Bilirubin Negative Urine Urobilinogen Normal Ur Leukocyte Esterase 25 H Urine RBC 0 SEEN Urine WBC 0-5 SEEN Ur Squamous Epith Cells 0-5 SEEN Urine Bacteria 1+ Urine Mucus 0 SEEN - Medical Decision Making Patient was given IV fluids, Dilaudid, and Zofran. On repeat evaluation she states pain was improved but is starting to return again. Abdomen is soft minimal tenderness. Lung sounds remain clear. I believe she likely has a viral illness. She will be given Percocet, Phenergan, and Bentyl. She is to increase fluids. Return for worsening symptoms or concerns. ED Disposition - Plan for ED Patient: Disposition: Home or Assisted Living Diagnosis: Viral syndrome Instructions: VIRAL SYNDROME (Adult) Prescriptions: Dicyclomine HCl [Bentyl] 20 mg PO TIDAC #20 capsule Oxycodone HCl/Acetaminophen [Percocet 5/325] 1 tablet PO Q6H PRN PRN 3 Days #12 tablet PRN Reason: Pain proMETHazine tablet [Phenergan] 25 mg PO Q6H PRN PRN #10 tablet PRN Reason: Nausea Referrals: Kelli Ram MD [Primary Care Provider] - 3-5 Days if not improving
[2019-05-29 12:19] LABS: Absolute Lymphocyte Count 2.66 X10^3/uL (0.83-4.51); Absolute Neutrophil Count 6.8 X10^3/uL (2.0-7.7); Basophil# 0.04 X10^3/uL; Basophil% 0.4 % (0-1); Eosinophil# 0.13 X10^3/uL; Eosinophils% 1.3 % (0-5); Hematocrit 41.5 % (37-47); Hemoglobin 14.5 g/dL (12.0-15.0); Lymphocyte # 2.66 X10^3/ul (4.0); Lymphocyte % 25.8 % (19-41); Mean Corp Hgb Conc 34.9 g/dL (32-36); Mean Corpuscular Hgb 31.1 pg (27.0-32.0); Mean Corpuscular Volume 89.1 fL (81-99); Mean Platelet Vol. 10.2 fl (6.2-12.0); Monocyte# 0.67 X10^3/uL; Monocyte% 6.5 % (0-10); NRBC Flagged by Analyzer 0 % (0-5); Neutrophil # 6.77 X10^3/uL (2.7-7.7); Neutrophil % 65.5 % (47-70); Platelet Count 227 K/mm3 (150-450); RBC Distribution Width SD 42.4 fl (35.1-43.9); Red Blood Count 4.66 M/mm3 (4.2-5.4); White Blood Count 10.3 K/mm3 (4.4-11.0)
[2019-05-29 12:20] LABS: Mucous, Urine 0 SEEN /hpf (<or=2+); Red Blood Cells-Urine 0 SEEN /hpf (0-5)
[2019-05-29] MEDS: HYDROmorphone 1 MG/ML Syringe 0.5 MG IV (12:22)
[2019-05-29] MEDS: Ondansetron 4 MG/2 ML Vial IV (12:22)
[2019-05-29] MEDS: 0.9% Normal Saline 1,000 ML 150 ML IV (12:22)
[2019-05-29 12:27] LABS: Color, Urine Yellow (Yellow); Glucose, Dipstick Normal (Normal); Ketone-Dipstick Negative (Negative); Leukocyte Esterase-Dipstick 25 /ul (Negative); Nitrite-Dipstick Negative (Negative); Occult Blood-Urine Negative /ul (Negative); Protein-Dipstick 15 mg/dl (Negative); Urine Bilirubin Dipstick Negative (Negative); Urine Clarity Sl. Cloudy (Clear); Urine Urobilinogen Normal (Normal)
[2019-05-29 12:30] LABS: Internal QC Validated? YES +Cl - CLEAR BKGD; Pregnancy, Serum, hCG Quali. NEGATIVE Negative
[2019-05-29 12:37] LABS: AST(SGOT) 30 U/L (15-37); Alanine Aminotransfer ALT/SGPT 28 U/L (13-56); Albumin, Serum 3.2 g/dL (3.2-5.0); Alkaline Phosphatase 84 U/L (45-117); Anion Gap 8 (5-15); BUN 11 mg/dL (7-18); Calcium,Total 8.2 mg/dL (8.5-10.1); Chloride 109 mmol/L (98-107); Creatinine, Serum 0.84 mg/dL (0.55-1.02); EST Glomerular Filtration Rate 79 mL/min (>60); Est Glom Filt Rate - Afr Amer 96 mL/min (>60); Estimated Creatinine Clearance 93.04 ml/min; Globulin 4.2 g/dL (2.2-4.2); Glucose 90 mg/dL (74-106); Lipase 169 U/L (73-393); Protein, Total 7.4 g/dL (6.4-8.2); Sodium Level 142 mmol/L (136-145)
[2019-05-29 12:45] LABS: Bacteria 1+ /hpf (None Seen); Squamous Epithelial Cells - UA 0-5 SEEN /hpf (5-10); White Blood Cells 0-5 SEEN /hpf (0-5)
--- NOTE | 2019-05-29 12:45 | RAD_ITS ---
STUDY: X-RAY CHEST REASON FOR EXAM: Female, 38 years old. System cough. History of lupus. TECHNIQUE: PA and lateral views of the chest. COMPARISON: Comparison is made with prior study dated October 17, 2018. FINDINGS: The lungs are clear and expanded. Scattered calcified granulomas. There is no demonstrated pleural abnormality. Normal size heart. Normal mediastinum and germán. Normal visualized pulmonary arteries. Normal visualized aortic arch and descending thoracic aorta. Normal visualized thoracic spine. Normal visualized ribs, clavicles, and shoulders. There is no demonstrated abnormality of the visualized soft tissue structures of the upper abdomen. RAD/Chest PA and Lateral IMPRESSION: Normal x-ray examination of the chest. Electronically Signed: Jamar Tovar, at 13:02 EDT , Service support ,
[2019-05-29 13:47] VITALS: BP 122/67; PULSE 71; RESP 15; O2SAT 98
== END 2019-05-29 13:50 | disposition home or self-care (01) ==
PROVIDERS: Emergency Provider Emergency Medicine; Family Provider Internal Medicine; PCP Internal Medicine
DX: B34.9 Viral infection, unspecified (principal)
CPT/HCPCS: 71046; 80048; 80076; 81001; 83690; 84703; 85025; 96361; 96374; 96375; 99283; J7030; A4216; J2405

== ENCOUNTER 2019-06-18 00:31 | Emergency (ER) | payer MEDICAID, SELFPAY ==
[2019-06-18 00:32] VITALS: RESP 18
[2019-06-18 00:34] VITALS: BP 116/79; PULSE 80; RESP 18; TEMP 37.3; O2SAT 98; BMI 34.8
--- NOTE | 2019-06-18 00:50 | ED.DCSUM_ITS ---
History of Present Illness Chief Complaint: Abd Pain Informant: Patient Onset: Yesterday Context: Gradual Onset Current Severity: Moderate Maximum Severity: Moderate Narrative: Patient presents with abdominal pain, nausea, vomiting, and diarrhea. She states she did not feel well throughout the day yesterday. Around 5 PM in the evening she developed pain in the epigastrium that wraps around both sides and into her back. She has had nausea, vomiting, and diarrhea. No blood associated. She reports feeling chills and then gets very warm. She did not measure a temperature. Patient has had her gallbladder out in the past. She is a history of IBS and hiatal hernia. Past Medical History - Allergies and Home Meds Allergies/Adverse Reactions: Allergies amoxicillin Allergy (Verified 06/18/19 00:39) Nausea/Vom/Diarrhea hydrocodone bitartrate [From Vicodin] Allergy (Verified 06/18/19 00:39) Swelling metronidazole [From Flagyl] Adverse Reaction (Verified 06/18/19 00:39) Nausea morphine Adverse Reaction (Verified 06/18/19 00:39) Chest tightness Primary Care Physician: Kelli Ram MD [Primary Care Provider] - Doctors: Dr. Simmons Prior records reviewed: Yes Past Medical History: - - Reviewed Surgical History: noncontributory Lives: Spouse/ Significant Other Smoking Status: Never smoker Review of Systems General: Reports: Chills, Fever, Subjective Eyes: Denies: Visual changes - bilaterally ENT: Denies: Bilateral ear pain Cardiovascular: Denies: Chest pain Respiratory: Denies: Dyspnea, Cough Gastrointestinal: Reports: Abdominal pain, Nausea, Vomiting, Diarrhea Musculoskeletal: Denies: Extremity Pain Skin: Denies: Rash Neurological: Denies: Headache Endocrine: Denies: Polyuria, Polydipsia Allergy: Denies: Uticaria Physical Exam Vital Signs/Narrative: Vital Signs Temp Pulse Resp BP Pulse Ox 06/18/19 00:34 99.1 F 80 18 116/79 98 06/18/19 00:32 18 Inital Vital Signs reviewed: Yes General: Well nourished, Well developed Head: Normocephalic ENT: Moist mucous membranes Neck: Supple Cardiovascular: Regular rate, Regular rhythm Respiratory: No distress, CTA bilaterally Abdomen: Soft, Tender - Mild diffuse tenderness to palpation, worse in the epigastrium and suprapubic regions., Hypoactive bowel sounds. Negative for: Guarding, Rebound tenderness Extremities: Nontender Skin: Normal color, No rash Neurological: Alert, Oriented x3 Psychological: Normal affect Diagnostic/Tx/Re-eval Laboratory Results 06/18/19 06/18/19 06/18/19 00:40 00:40 01:40 WBC 8.8 RBC 4.71 Hgb 14.4 Hct 42.2 MCV 89.6 MCH 30.6 MCHC 34.1 RDW Std Deviation 43.7 RDW Coeff of Tiesha 13.3 Plt Count 252 MPV 10.2 Immature Gran % (Auto) 0.500 Neut % (Auto) 65.3 Lymph % (Auto) 27.1 [place] % (Auto) 5.3 Eos % (Auto) 1.3 Baso % (Auto) 0.5 Absolute Neuts (auto) 5.8 Absolute Lymphs (auto) 2.38 Nucleated RBC % 0 Sodium 139 Potassium 3.9 Chloride 109 H Carbon Dioxide 24.0 Anion Gap 6 BUN 13 Creatinine 0.73 Estim Creat Clear Calc 110.78 Est GFR (MDRD) Af Amer 112 Est GFR (MDRD) Non-Af 93 BUN/Creatinine Ratio 17.7 Glucose 94 Calcium 8.2 L Total Bilirubin 1.00 Direct Bilirubin 0.24 AST 23 ALT 25 Alkaline Phosphatase 85 Total Protein 7.3 Albumin 3.3 Globulin 4.0 Lipase 158 Urine Color Yellow Urine Clarity Sl. Cloudy Urine pH 5.0 Ur Specific [place] 1.020 Urine Protein Negative Urine Glucose (UA) Normal Urine Ketones 5 H Urine Occult Blood Negative Urine Nitrite Negative Urine Bilirubin Negative Urine Urobilinogen Normal Ur Leukocyte Esterase 25 H Urine RBC 0 SEEN Urine WBC 0-5 SEEN Ur Squamous Epith Cells 5-10 SEEN Amorphous Sediment 1+ Urine Bacteria RARE Urine Mucus 0 SEEN - Medical Decision Making Patient was initially given Dilaudid 0.5 mg, Zofran, and IV fluids. She does have a documented allergy to morphine but is tolerated Dilaudid in the past. Repeat evaluation she reported only minimal improvement. She is given a second dose of Dilaudid along with Bentyl and Phenergan. At this time patient is r esting more comfortably. She states the abdominal cramps and spasms are lesser in degree and further apart. She will be discharged with a prescription for Bentyl and Phenergan. She is to follow-up with primary care physician. ED Disposition - Plan for ED Patient: Disposition: Home or Assisted Living Diagnosis: Abdominal pain Instructions: ABDOMINAL PAIN, Unknown Cause, (Female) Prescriptions: Dicyclomine HCl [Bentyl] 20 mg PO TIDAC #20 capsule proMETHazine tablet [Phenergan] 25 mg PO Q6H PRN PRN #10 tablet PRN Reason: Nausea Referrals: Kelli Ram MD [Primary Care Provider] - 1 Week
[2019-06-18 00:55] LABS: Absolute Lymphocyte Count 2.38 X10^3/uL (0.83-4.51); Absolute Neutrophil Count 5.8 X10^3/uL (2.0-7.7); Basophil# 0.04 X10^3/uL; Basophil% 0.5 % (0-1); Eosinophil# 0.11 X10^3/uL; Eosinophils% 1.3 % (0-5); Hematocrit 42.2 % (37-47); Hemoglobin 14.4 g/dL (12.0-15.0); Lymphocyte # 2.38 X10^3/ul (4.0); Lymphocyte % 27.1 % (19-41); Mean Corp Hgb Conc 34.1 g/dL (32-36); Mean Corpuscular Hgb 30.6 pg (27.0-32.0); Mean Corpuscular Volume 89.6 fL (81-99); Mean Platelet Vol. 10.2 fl (6.2-12.0); Monocyte# 0.47 X10^3/uL; Monocyte% 5.3 % (0-10); NRBC Flagged by Analyzer 0 % (0-5); Neutrophil # 5.75 X10^3/uL (2.7-7.7); Neutrophil % 65.3 % (47-70); Platelet Count 252 K/mm3 (150-450); RBC Distribution Width CV 13.3 % (11.6-14.6); RBC Distribution Width SD 43.7 fl (35.1-43.9); Red Blood Count 4.71 M/mm3 (4.2-5.4); White Blood Count 8.8 K/mm3 (4.4-11.0)
[2019-06-18] MEDS: HYDROmorphone 1 MG/ML Syringe 0.5 MG IV (01:00)
[2019-06-18] MEDS: Ondansetron 4 MG/2 ML Vial IV (01:00)
[2019-06-18 01:07] LABS: AST(SGOT) 23 U/L (15-37); Alanine Aminotransfer ALT/SGPT 25 U/L (13-56); Albumin, Serum 3.3 g/dL (3.2-5.0); Alkaline Phosphatase 85 U/L (45-117); Anion Gap 6 (5-15); BUN 13 mg/dL (7-18); BUN/Creat Ratio 17.7 RATIO (10-20); Bilirubin, Direct 0.24 mg/dL (0.00-0.30); Calcium,Total 8.2 mg/dL (8.5-10.1); Chloride 109 mmol/L (98-107); Creatinine, Serum 0.73 mg/dL (0.55-1.02); EST Glomerular Filtration Rate 93 mL/min (>60); Est Glom Filt Rate - Afr Amer 112 mL/min (>60); Estimated Creatinine Clearance 110.78 ml/min; Glucose 94 mg/dL (74-106); Lipase 158 U/L (73-393); Potassium 3.9 mmol/L (3.5-5.1); Protein, Total 7.3 g/dL (6.4-8.2); Sodium Level 139 mmol/L (136-145)
[2019-06-18] MEDS: proMETHazine 25 MG/ML Syringe 12.5 MG IV (01:37)
[2019-06-18] MEDS: 0.9% Normal Saline 1,000 ML 150 ML IV (01:37)
[2019-06-18] MEDS: Dicyclomine 10 MG Capsule 20 MG PO (01:37)
[2019-06-18] MEDS: HYDROmorphone 0.5 MG/0.5 ML SYRINGE IV (01:37)
--- NOTE | 2019-06-18 01:39 | ED.RN ---
pt reports abdominal pain level on numeric scale as (8/10). pt describes pain as sharp cramping.
[2019-06-18 01:46] LABS: Mucous, Urine 0 SEEN /hpf (<or=2+); Red Blood Cells-Urine 0 SEEN /hpf (0-5)
[2019-06-18 01:48] LABS: Color, Urine Yellow (Yellow); Glucose, Dipstick Normal (Normal); Ketone-Dipstick 5 mg/dl (Negative); Leukocyte Esterase-Dipstick 25 /ul (Negative); Nitrite-Dipstick Negative (Negative); Occult Blood-Urine Negative /ul (Negative); Protein-Dipstick Negative (Negative); Urine Bilirubin Dipstick Negative (Negative); Urine Clarity Sl. Cloudy (Clear); Urine Urobilinogen Normal (Normal)
[2019-06-18 01:53] LABS: Amorphous Sediment 1+; Bacteria RARE /hpf (None Seen); Squamous Epithelial Cells - UA 5-10 SEEN /hpf (5-10)
[2019-06-18 01:54] LABS: White Blood Cells 0-5 SEEN /hpf (0-5)
[2019-06-18 02:16] VITALS: BP 111/73; PULSE 74; RESP 15; O2SAT 98
--- NOTE | 2019-06-18 02:17 | ED.RN ---
PT GIVEN WRITTEN AND VERBAL DISCHARGE INSTRUCTIONS AND HOME GOING PRESCRIPTIONS. PT EDUCATED NOT TO DRIVE AFTER HAVING DILAUDID FOR THE NEXT 6 HOURS. PT VERBALIZES UNDERSTANDING AND DENIES ANY FURTHER QUESTIONS. PT IV D/C AND COVERED WITH 2X2 GAUZE AND PAPER TAPE. DRESSES SELF AND AMBULATES OUT OF DEPT WITH S/O.
== END 2019-06-18 02:22 | disposition home or self-care (01) ==
PROVIDERS: Emergency Provider Emergency Medicine; Family Provider Internal Medicine; PCP Internal Medicine
DX: R10.84 Generalized abdominal pain (principal)
CPT/HCPCS: 80048; 80076; 81001; 83690; 85025; 96361; 96374; 96375; 96376; 99284; J7030; A4216; J2405

== ENCOUNTER 2019-08-06 20:38 | Emergency (ER) | payer MEDICAID, SELFPAY ==
[2019-08-06 20:39] VITALS: BP 157/109; PULSE 85; RESP 15; TEMP 36.7; O2SAT 99; BMI 36.0
--- NOTE | 2019-08-06 21:13 | ED.DCSUM_ITS ---
History of Present Illness Chief Complaint: Nausea/Vomiting/Diarrhea Informant: Patient - Abdominal Pain/Flank Pain Onset: Days - 3- Context: Gradual Onset Timing: Continuous Quality: Aching Location: LUQ Current Severity: Moderate Maximum Severity: Moderate Worsened by: Food Relieved by: Nothing - Nausea/Vomiting/Emesis GI Symptom: Nausea, Vomiting Onset: Days - 2- Quality: Nonbilious. Negative for: Blood streaks, Coffee ground, Hematemesis Severity: Severe - Diarrhea/Melena/Hematochezia GI Symptom: Negative for: Diarrhea, Melena, Hematochezia Associated Symptoms: Negative for: Dysuria, Frequency, Hematuria, Urgency Narrative: Patient has history of lupus and some bowel issues. In the past several days she has been vomiting which is been worse, along with left upper quadrant pain, chills, malaise, headache, no diarrhea. No known sick contacts. No recent ant ibiotics. Remote cholecystectomy and ovarian cyst drainage, no other abdominal surgeries. Pain in her left upper quadrant radiates into her back. She has had a mildly productive cough with clear sputum, no hemoptysis. No chest pain or pleuritic discomfort but she has felt a little short of breath at times, mostly if she is coughing a lot, and it makes her abdomen hurt more to do so. Past Medical History - Allergies and Home Meds Allergies/Adverse Reactions: Allergies amoxicillin Allergy (Verified 08/06/19 20:43) Nausea/Vom/Diarrhea hydrocodone bitartrate [From Vicodin] Allergy (Verified 08/06/19 20:43) Swelling metronidazole [From Flagyl] Adverse Reaction (Verified 08/06/19 20:43) Nausea morphine Adverse Reaction (Verified 08/06/19 20:43) Chest tightness Primary Care Physician: Kelli Ram MD [Primary Care Provider] - Surgical History: cholecystectomy, - - Ovarian cyst Lives: Spouse/ Significant Other Smoking Status: Never smoker Drugs: None Review of Systems General: Reports: Chills, Malaise. Denies: Fever, Sweats Eyes: Denies: Visual changes - bilaterally, Diplopia ENT: Denies: Rhinorrhea, Sore throat Cardiovascular: Denies: Chest pain, Palpitations Respiratory: Reports: Dyspnea - At times, Cough, Sputum - Clear, no blood. Denies: Dyspnea on exertion, Orthopnea Gastrointestinal: Reports: Abdominal pain - Left upper quadrant, Nausea, Vomiting. Denies: Diarrhea, Melena, Hematochezia Genitourinary: Denies: Dysuria, Hematuria, Frequency Musculoskeletal: Reports: Back pain - Left low back. Denies: Neck pain, Swelling, Extremity Pain Skin: Denies: Rash, Wounds Neurological: Denies: Headache, Weakness, Numbness Physical Exam Vital Signs/Narrative: Vital Signs Temp Pulse Resp BP Pulse Ox 08/06/19 20:39 98.0 F 85 15 157/109 H 99 Inital Vital Signs reviewed: Yes General: Well nourished, Well developed, No Acute Distress Head: Normocephalic, Atraumatic Eyes: Perrl, EOMI ENT: Moist mucous membranes, No rhinorrhea Neck: Supple, Nontender Cardiovascular: Regular rate, Regular rhythm, No murmurs Respiratory: No distress, CTA bilaterally, Chest nontender Abdomen: Soft, Nondistended, Normal bowel sounds, No masses, Tender - Left upper quadrant, more than epigastrium. Negative for: Guarding, Rebound tenderness, Pulsatile mass Back: Nontender, Normal Inspection. Negative for: CVA tenderness Extremities: Nontender, No edema. Negative for: Calf Tenderness Skin: Normal color, No rash Neurological: Alert, Oriented x3, Cranial nerves II-XII grossly intact, Normal Strength, Normal Sensation, Normal Gait Psychological: Normal affect, Normal Mood Diagnostic/Tx/Re-eval Impressions Acute Abdomen Series 08/06/19 23:16 IMPRESSION: Normal x-ray examination of the chest, abdomen, and pelvis. Electronically Signed: Mitch Emerson DO at 23:30 EST Tel [phone], Service support , 08/06/19 23:16 Acute Abdomen Inc Chest [RAD] Stat Laboratory Results 08/06/19 08/06/19 21:15 21:15 WBC 9.1 RBC 4.81 Hgb 14.8 Hct 42.1 MCV 87.5 MCH 30.8 MCHC 35.2 RDW Std Deviation 41.2 RDW Coeff of Tiesha 12.8 Plt Count 220 MPV 10.4 Immature Gran % (Auto) 0.200 Neut % (Auto) 78.0 H Lymph % (Auto) 17.1 L [place] % (Auto) 3.6 Eos % (Auto) 1.0 Baso % (Auto) 0.1 Absolute Neuts (auto) 7.1 Absolute Lymphs (auto) 1.56 Nucleated RBC % 0 Sodium 138 Potassium 4.0 Chloride 107 Carbon Dioxide 24.0 Anion Gap 7 BUN 12 Creatinine 0.69 Estim Creat Clear Calc 113.26 Est GFR (MDRD) Af Amer 121 Est GFR (MDRD) Non-Af 100 BUN/Creatinine Ratio 17.4 Glucose 91 Calcium 7.8 L Total Bilirubin 1.00 AST 22 ALT 21 Alkaline Phosphatase 78 Total Protein 7.4 Albumin 3.3 Globulin 4.1 Albumin/Globulin Ratio 0.8 L Lipase 182 - Medical Decision Making Labs and imaging of the abdomen and chest are all normal. With IV fluids, promethazine, and a GI cocktail, her symptoms resolved. Her nausea came back and so she was given Zofran but she does feel well enough to go home. Suspect viral illness. She apparently has a history of peptic ulcer disease and she was on Protonix and Carafate in the past, if she develops any bleeding she may need to continue those, or may substitute [id number] omeprazole. We discussed reasons to return and follow-up with her doctor. She is comfortable with that plan. Given prescriptions for promethazine and Bentyl. ED Disposition - Plan for ED Patient: Disposition: Home or Assisted Living Diagnosis: Acute gastritis without hemorrhage, LUQ abdominal pain Instructions: GASTRITIS vs. ULCER Prescriptions: Dicyclomine HCl [Bentyl] 20 mg PO Q6H PRN #12 cap PRN Reason: abdominal pain Prescription Printed proMETHazine tablet [Phenergan] 25 mg PO Q6H PRN PRN #20 tab PRN Reason: Nausea Prescription Printed Referrals: Kelli Ram MD [Primary Care Provider] - 3-5 Days if not improving
[2019-08-06] MEDS: proMETHazine 25 MG/ML Syringe 12.5 MG IV (21:25)
[2019-08-06] MEDS: Mag Hydrox/Al Hydrox/Simeth 30 ML UDC PO (21:26)
[2019-08-06] MEDS: fentaNYL 100 MCG/2 ML Ampul 50 MCG IV (21:26)
[2019-08-06 21:31] LABS: Absolute Lymphocyte Count 1.56 X10^3/uL (0.83-4.51); Absolute Neutrophil Count 7.1 X10^3/uL (2.0-7.7); Basophil# 0.01 X10^3/uL; Basophil% 0.1 % (0-1); Eosinophil# 0.09 X10^3/uL; Hematocrit 42.1 % (37-47); Hemoglobin 14.8 g/dL (12.0-15.0); Lymphocyte # 1.56 X10^3/ul (4.0); Lymphocyte % 17.1 % (19-41); Mean Corp Hgb Conc 35.2 g/dL (32-36); Mean Corpuscular Hgb 30.8 pg (27.0-32.0); Mean Corpuscular Volume 87.5 fL (81-99); Mean Platelet Vol. 10.4 fl (6.2-12.0); Monocyte# 0.33 X10^3/uL; Monocyte% 3.6 % (0-10); NRBC Flagged by Analyzer 0 % (0-5); Neutrophil # 7.11 X10^3/uL (2.7-7.7); Platelet Count 220 K/mm3 (150-450); RBC Distribution Width CV 12.8 % (11.6-14.6); RBC Distribution Width SD 41.2 fl (35.1-43.9); Red Blood Count 4.81 M/mm3 (4.2-5.4); White Blood Count 9.1 K/mm3 (4.4-11.0)
[2019-08-06] MEDS: 0.9% Normal Saline 1,000 ML 1000 ML IV (21:41)
[2019-08-06 21:49] LABS: ALB/GLOB Ratio 0.8 RATIO (0.9-2.4); AST(SGOT) 22 U/L (15-37); Alanine Aminotransfer ALT/SGPT 21 U/L (13-56); Albumin, Serum 3.3 g/dL (3.2-5.0); Alkaline Phosphatase 78 U/L (45-117); Anion Gap 7 (5-15); BUN 12 mg/dL (7-18); BUN/Creat Ratio 17.4 RATIO (10-20); Calcium,Total 7.8 mg/dL (8.5-10.1); Chloride 107 mmol/L (98-107); Creatinine, Serum 0.69 mg/dL (0.55-1.02); EST Glomerular Filtration Rate 100 mL/min (>60); Est Glom Filt Rate - Afr Amer 121 mL/min (>60); Estimated Creatinine Clearance 113.26 ml/min; Globulin 4.1 g/dL (2.2-4.2); Glucose 91 mg/dL (74-106); Lipase 182 U/L (73-393); Protein, Total 7.4 g/dL (6.4-8.2); Sodium Level 138 mmol/L (136-145)
--- NOTE | 2019-08-06 23:16 | RAD_ITS ---
STUDY: X-RAY - ACUTE ABDOMINAL SERIES REASON FOR EXAM: Female, 38 years old. Abdominal pain for several days. TECHNIQUE: Single view of the chest. Supine, and erect view(s) of the abdomen were obtained. COMPARISON: CT of the abdomen and pelvis, August 07, 2018. CT of the chest, February 01, 2017. FINDINGS: The lungs are clear and expanded. Normal size heart. Normal mediastinum and germán. Normal visualized pulmonary arteries. Normal visualized aortic arch and descending thoracic aorta. There is a non-specific bowel gas pattern. No small bowel dilatation or evidence for obstruction. There is no free air. The soft tissue structures of the abdomen and pelvis are unremarkable. Normal visualized osseous structures. RAD/Acute Abdomen Inc Chest IMPRESSION: Normal x-ray examination of the chest, abdomen, and pelvis. Electronically Signed: Mitch Emerson DO at 23:30 EST Tel [phone], Service support ,
[2019-08-06] MEDS: Ondansetron 4 MG/2 ML Vial IV (23:38)
[2019-08-06 23:40] VITALS: BP 122/71; PULSE 81; RESP 18; O2SAT 97
== END 2019-08-07 | disposition home or self-care (01) ==
PROVIDERS: Emergency Provider Emergency Medicine; Family Provider Internal Medicine; PCP Internal Medicine
DX: K29.00 Acute gastritis without bleeding (principal); R10.12 Left upper quadrant pain
CPT/HCPCS: 74022; 80053; 83690; 85025; 96361; 96374; 96375; 99283; J7030; A4216; J2405

== ENCOUNTER 2019-08-24 02:15 | Emergency (ER) | payer MEDICAID, SELFPAY ==
[2019-08-24 02:16] VITALS: BP 139/96; PULSE 89; RESP 22; TEMP 37.2; O2SAT 97; BMI 32.8
[2019-08-24] MEDS: oxyCODONE 5 MG Tablet 10 MG PO (02:22)
--- NOTE | 2019-08-24 02:30 | RAD_ITS ---
STUDY: X-RAY - LEFT FOOT CLINICAL: Female, 38 years old. PT FELL DOWN STAIRS TONIGHT, LATERAL FOOT and amp; ANKLE PAIN, BRUISING, and amp; SWELLING TECHNIQUE: 3 view(s) of the foot. COMPARISON: None. FINDINGS: Normal talus, calcaneus, and tarsal bones. Normal visualized subtalar, talonavicular, calcaneocuboid, tarsal and tarsometatarsal articulations. Normal metatarsi. Normal metatarsophalangeal joint of the great toe. Normal tibial and fibular sesamoid bones. Normal interphalangeal joint of the great toe. There is irregularity involving the tip of the distal phalanx of the first toe which could represent a crush fracture. Otherwise normal phalanges of the great toe. Normal second through fifth metatarsophalangeal joints. Normal interphalangeal joints and phalanges of the lesser toes. The soft tissue structures are unremarkable. RAD/Foot min 3 Views IMPRESSION: Possible crush fracture of the tip of the distal phalanx of the first toe, remainder of the exam unremarkable. Clinical correlation recommended. Electronically Signed: Emily Daily MD at 3:27 EST , Service support ,
--- NOTE | 2019-08-24 02:30 | RAD_ITS ---
STUDY: X-RAY - LEFT ANKLE REASON FOR EXAM: Female, 38 years old. PT FELL DOWN STAIRS TONIGHT, LATERAL FOOT and amp; ANKLE PAIN, BRUISING, and amp; SWELLING TECHNIQUE: 3 view(s) of the ankle. COMPARISON: None. FINDINGS: Normal visualized distal tibia and fibula. Normal medial and lateral malleoli. Normal tibiotalar articulation and ankle mortise. Normal visualized talus and calcaneus. The visualized subtalar, talonavicular, calcaneocuboid and tarsal articulations are normal. There is no demonstrated fracture. There is mild soft tissue swelling along the anterior ankle and lateral malleolus. RAD/Ankle min 3 Views IMPRESSION: Mild soft tissue swelling as described above otherwise normal x-ray examination of the ankle. Electronically Signed: Emily Daily MD at 3:25 EST , Service support ,
--- NOTE | 2019-08-24 03:31 | ED.DCSUM_ITS ---
- ER Visit Summary Date of Service: 08/24/19 Chief Complaint: Left ankle pain History of Present Illness: The patient is a 38 F who fell on the stairs a few days ago. She complains of left ankle pain and swelling. No other injuries. Physical Examination: Left ankle is tender over the lateral aspect. Diffuse swelling. Range of motion intact. Left lateral foot is slightly swollen, tender, bruised. Skin is intact. Neurovascular intact distally. Test Results: X-rays were unremarkable. There is no point tenderness at her great toe suspicious for fracture. Patient was treated with pain medicine. Rest, ice, elevate. Aircast and crutches. Outpatient follow-up. Emergency Department Course and Treatment: As above Treatment Plan: As above Disposition: Discharge Impression: 1. Left ankle pain 3. Left foot pain This note was generated with [employer] dictation software. It may contain incorrect words, spelling, and punctuation that were not noted in review of the chart prior to signing ED Disposition - Plan for ED Patient: Referrals: Kelli Ram MD [Primary Care Provider] -
--- NOTE | 2019-08-24 03:32 | ED.DEP ---
ED Disposition - Plan for ED Patient: Instructions: Sprain, Ankle, with X-Ray Prescriptions: Oxycodone HCl/Acetaminophen [Percocet 5/325] 1 tab PO Q8H PRN PRN 2 Days #6 tab PRN Reason: Pain Prescription Printed Referrals: Kelli Ram MD [Primary Care Provider] -
== END 2019-08-24 03:56 | disposition home or self-care (01) ==
PROVIDERS: Emergency Provider Emergency Medicine; Family Provider Internal Medicine; PCP Internal Medicine
DX: M25.572 Pain in left ankle and joints of left foot (principal); J45.909 Unspecified asthma, uncomplicated; K21.9 Gastro-esophageal reflux disease without esophagitis; M32.9 Systemic lupus erythematosus, unspecified; M06.9 Rheumatoid arthritis, unspecified; G47.33 Obstructive sleep apnea (adult) (pediatric); Z79.51 Long term (current) use of inhaled steroids; Z79.899 Other long term (current) drug therapy
CPT/HCPCS: 73610; 73630; 99284

== ENCOUNTER 2019-10-05 20:57 | Emergency (ER) | payer MEDICAID, SELFPAY ==
[2019-10-05 20:58] VITALS: BP 133/100; PULSE 63; RESP 14; TEMP 36.6; O2SAT 98; BMI 35.8
--- NOTE | 2019-10-05 21:17 | ED.DCSUM_ITS ---
- ER Visit Summary Date of Service: 10/05/19 Chief Complaint:, Vomiting, diarrhea and abdominal cramping History of Present Illness: The patient is a [address] lupus, reflux and pulmonary fibrosis. Prior cholecystectomy. Patient states today having nausea, vomiting diarrhea. Abdominal cramping in the upper abdomen. No melena. No fever. No dysuria. Last menstrual period was 1 week ago. She is been worked up in the past to be evaluated for Crohn's disease which was negative. She has had both upper and lower endoscopy. Physical Examination: Middle-aged female no acute distress vital signs are stable afebrile. H EENT exam dry mucous membranes. Neck nontender. No lymp hadenopathy. Lungs clear to auscultation bilaterally. Heart regular rhythm no murmur. Abdomen soft. Nondistended. Normal bowel sounds. Tender in the upper quadrants. No rebound, guarding or rigidity. No signs of obstruction. No right lower quadrant tenderness. No hernia or masses. Extremities moves all 4. Calves are nontender. Neurologically she is awake and alert with no focal motor deficits. Back nontender. Test Results: CBC shows a white count of 7. Hemoglobin 14. No bands. Chemistries unremarkable normal creatinine gap. Liver enzymes AST slightly portia vated at 38 otherwise unremarkable lipase normal at 245. Emergency Department Course and Treatment: History and exam are consistent with a viral gastroenteritis. Clinically she appears to be mildly dehydrated. We treated with IV fluids, Zofran and Toradol for pain. I am going screening labs due to the upper abdominal pain but I think it is from the viral illness. I do not think she needs imaging at this time. Repeat exam at 2205 PM patient is resting comfortably. She is received IV Zofran and IV Toradol. She is receiving IV fluids. She will be checked out to the overnight physician. Expecting her labs will be unremarkable as long she is feeling better she can be discharged to home. Treatment Plan: Zofran for nausea. Fluids and rest. Follow-up if not improving or return if worse. Disposition: Discharge Impression: Acute nausea, vomiting and diarrhea secondary to viral gastroenteritis Abdominal pain secondary to above Acute dehydration This note was generated with [employer] dictation software. It may contain incorrect words, spelling, and punctuation that were not noted in review of the chart prior to signing ED Disposition - Plan for ED Patient: Disposition: Home or Assisted Living Instructions: GASTROENTERITIS, Viral (4y-Adult) Prescriptions: Ondansetron [Zofran Odt] 4 mg PO Q8H PRN PRN #7 tab PRN Reason: Nausea Prescription Printed Referrals: Kelli Ram MD [Primary Care Provider] - 1-2 Days if not improving Additional Instructions: Plenty of fluids and rest. Zofran as needed for nausea. Follow-up if not improving return if feeling worse.
[2019-10-05 21:46] LABS: Absolute Lymphocyte Count 3.05 X10^3/uL (0.83-4.51); Absolute Neutrophil Count 3.4 X10^3/uL (2.0-7.7); Basophil# 0.04 X10^3/uL; Basophil% 0.6 % (0-1); Eosinophil# 0.16 X10^3/uL; Eosinophils% 2.2 % (0-5); Hematocrit 41.6 % (37-47); Hemoglobin 14.5 g/dL (12.0-15.0); Lymphocyte # 3.05 X10^3/ul (4.0); Lymphocyte % 42.5 % (19-41); Mean Corp Hgb Conc 34.9 g/dL (32-36); Mean Platelet Vol. 10.3 fl (6.2-12.0); NRBC Flagged by Analyzer 0 % (0-5); Neutrophil % 47.4 % (47-70); Platelet Count 246 K/mm3 (150-450); RBC Distribution Width CV 12.8 % (11.6-14.6); RBC Distribution Width SD 39.7 fl (35.1-43.9); Red Blood Count 4.84 M/mm3 (4.2-5.4); White Blood Count 7.2 K/mm3 (4.4-11.0)
[2019-10-05] MEDS: Ketorolac 30 MG/ML Syringe IV (21:50)
[2019-10-05] MEDS: 0.9% Normal Saline 1,000 ML 1000 ML IV (21:50)
[2019-10-05] MEDS: Ondansetron 4 MG/2 ML Vial IV (21:50)
[2019-10-05 22:11] LABS: AST(SGOT) 38 U/L (15-37); Alanine Aminotransfer ALT/SGPT 26 U/L (13-56); Albumin, Serum 3.1 g/dL (3.2-5.0); Alkaline Phosphatase 75 U/L (45-117); Anion Gap 3 (5-15); BUN 15 mg/dL (7-18); BUN/Creat Ratio 12.3 RATIO (10-20); Bilirubin, Direct < 0.05 mg/dL (0.00-0.30); Calcium,Total 8.3 mg/dL (8.5-10.1); Chloride 112 mmol/L (98-107); Creatinine, Serum 1.22 mg/dL (0.55-1.02); EST Glomerular Filtration Rate 52 mL/min (>60); Est Glom Filt Rate - Afr Amer 62 mL/min (>60); Estimated Creatinine Clearance 63.42 ml/min; Globulin 4.3 g/dL (2.2-4.2); Glucose 95 mg/dL (74-106); Lipase 245 U/L (73-393); Protein, Total 7.4 g/dL (6.4-8.2); Sodium Level 139 mmol/L (136-145)
--- NOTE | 2019-10-05 22:11 | ED.DEP ---
ED Disposition - Plan for ED Patient: Disposition: Home or Assisted Living Instructions: GASTROENTERITIS, Viral (4y-Adult) Prescriptions: Ondansetron [Zofran Odt] 4 mg PO Q8H PRN PRN #7 tab PRN Reason: Nausea Prescription Printed Referrals: Kelli Ram MD [Primary Care Provider] - 1-2 Days if not improving Additional Instructions: Plenty of fluids and rest. Zofran as needed for nausea. Follow-up if not improving return if feeling worse.
[2019-10-05] MEDS: proMETHazine 25 MG/ML Syringe 12.5 MG IV (22:38)
[2019-10-05 22:42] VITALS: BP 119/75; PULSE 51; RESP 18; O2SAT 99
[2019-10-05 23:14] VITALS: RESP 16
== END 2019-10-05 23:14 | disposition home or self-care (01) ==
PROVIDERS: Emergency Provider Emergency Medicine; PCP Internal Medicine
DX: A08.4 Viral intestinal infection, unspecified (principal); E86.0 Dehydration; K21.9 Gastro-esophageal reflux disease without esophagitis; M32.9 Systemic lupus erythematosus, unspecified; Z79.899 Other long term (current) drug therapy
CPT/HCPCS: 80048; 80076; 83690; 85025; 96361; 96374; 96375; 99285; J7030; A4216; J2405

== ENCOUNTER 2019-11-10 20:02 | Emergency (ER) | payer MEDICAID, SELFPAY ==
[2019-10-30 14:45] VITALS: BMI 35.8
[2019-11-10 20:03] VITALS: BP 128/81; PULSE 71; RESP 24; TEMP 37.3; O2SAT 94; BMI 34.0
--- NOTE | 2019-11-10 20:12 | RAD_ITS ---
HISTORY: C/O SOB AND CP SINCE SUNDAY. DX PNEUMONIA EXAM: XR Chest 1 View: COMPARISON: August 06, 2019 FINDINGS: # of images incl. paperwork: 1 Lungs are clear. Heart is not enlarged. No acute osseous pathology perceived. Pulmonary vascularity is distinct. No effusions. RAD/Chest 1 View (Portable) IMPRESSION: Normal. at 2032 Reported and signed by: Dave Sims MD Electronically Signed: Dave Sims MD at 20:31 EDT Tel , Service support ,
--- NOTE | 2019-11-10 20:12 | EKG12_ITS ---
Test Reason : SOB Blood Pressure : / mmHG Vent. Rate : 064 BPM Atrial Rate : 064 BPM P-R Int : 146 ms QRS Dur : 080 ms QT Int : 438 ms P-R-T Axes : 033 039 049 degrees QTc Int : 451 ms Normal sinus rhythm Normal ECG Confirmed by MARICEL AVALOS, ARIANA ([id number]), marketing editor TRAVIS BARRETO ([id number]) on 11/11/2019 1:47:38 PM Referred By: VEDA Confirmed By:ARIANA CONNELLY MD
[2019-11-10 20:35] VITALS: O2SAT 97
[2019-11-10 20:41] LABS: Absolute Neutrophil Count 5.3 X10^3/uL (2.0-7.7); Basophil# 0.06 X10^3/uL; Basophil% 0.6 % (0-1); Eosinophil# 0.16 X10^3/uL; Eosinophils% 1.6 % (0-5); Hematocrit 40.3 % (37-47); Hemoglobin 14.2 g/dL (12.0-15.0); Lymphocyte % 37.6 % (19-41); Mean Corp Hgb Conc 35.2 g/dL (32-36); Mean Corpuscular Hgb 30.6 pg (27.0-32.0); Mean Corpuscular Volume 86.9 fL (81-99); Monocyte# 0.61 X10^3/uL; Monocyte% 6.2 % (0-10); NRBC Flagged by Analyzer 0 % (0-5); Neutrophil # 5.28 X10^3/uL (2.7-7.7); Neutrophil % 53.6 % (47-70); Platelet Count 258 K/mm3 (150-450); RBC Distribution Width CV 12.3 % (11.6-14.6); RBC Distribution Width SD 38.7 fl (35.1-43.9); Red Blood Count 4.64 M/mm3 (4.2-5.4); White Blood Count 9.9 K/mm3 (4.4-11.0)
--- NOTE | 2019-11-10 20:47 | ED.DCSUM_ITS ---
- ER Visit Summary Date of Service: 11/10/19 Chief Complaint: Cough and shortness of breath History of Present Illness: The patient is a 39 F history of lupus and pulmonary fibrosis. Is never had a DVT or PE. Developed a URI 2 weeks ago. Developed into pneumonia about a week ago after being seen at the urgent care. They started her on doxycycline and prednisone. States now she is having chest discomfort only with coughing. No hemoptysis. No leg pain or swelling. No recent travel, surgery or immobilization. No family history. And also complaining of shortness of breath. Physical Examination: Middle-aged female no acute distress vital signs stable afebrile. Pulse ox 94% on room air no signs hypoxia. HEENT exam unremarkable. Moist use membranes. Neck nontender. No lymphadenopathy. No JVD. Lungs dry cough but no rales, rhonchi or wheezing. Equal symmetrical. Heart regular rhythm rate about 65 no murmur. Chest were nontender. Abdomen soft. Nontender normal bowel sounds no peritoneal signs. Patient is moving all 4 extremities. Calves are nontender without edema or cords. Neurologically she is awake and alert with no focal motor deficits. Back nontender. Test Results: EKG shows normal sinus rhythm rate of 64 with no signs of acute WI or ischemia. No [id number]. Chest x-ray normal. Normal cardiac silhouette mediastinum read both myself and radiologist. One view portable. CBC normal white count 9. Hemoglobin 14. Chemistries normal. Troponin normal. Emergency Department Course and Treatment: Patient undergo cardiac work-up. I think this is either pneumonia or bronchitis with chest pain from that. She was given a Percocet for pain. Repeat exam patient is doing well at 2345 and will be discharged home. Treatment Plan: Continue on her current antibiotic and steroids. Also her nebulizer. Follow-up with her PCP. Disposition: Discharge Impression: Bronchitis Chest pain This note was generated with [email or web address] dictation software. It may contain incorrect words, spelling, and punctuation that were not noted in review of the chart prior to signing ED Disposition - Plan for ED Patient: Referrals: Kelli Ram MD [Primary Care Provider] -
[2019-11-10 21:03] VITALS: BP 116/99; PULSE 70; RESP 18; O2SAT 98
[2019-11-10 21:03] LABS: Anion Gap 6 (5-15); BUN 18 mg/dL (7-18); BUN/Creat Ratio 20.2 RATIO (10-20); Chloride 112 mmol/L (98-107); Creatinine, Serum 0.89 mg/dL (0.55-1.02); EST Glomerular Filtration Rate 74 mL/min (>60); Est Glom Filt Rate - Afr Amer 90 mL/min (>60); Estimated Creatinine Clearance 86.93 ml/min; Glucose 103 mg/dL (74-106); Potassium 3.7 mmol/L (3.5-5.1); Sodium Level 140 mmol/L (136-145)
[2019-11-10] MEDS: oxyCODONE 5 MG Tablet PO (21:57)
[2019-11-10 22:00] VITALS: BP 125/81; PULSE 73; RESP 18; O2SAT 95
[2019-11-10 23:00] VITALS: BP 110/85; PULSE 70; RESP 18; O2SAT 97
--- NOTE | 2019-11-10 23:49 | ED.DEP ---
ED Disposition - Plan for ED Patient: Disposition: Home or Assisted Living Instructions: BRONCHITIS, No Antibiotic (Adult) Referrals: Kelli Ram MD [Primary Care Provider] - 1 Week if not improving Additional Instructions: Continue your current antibiotic doxycycline and your prednisone. Follow-up with your doctor if not improving.
== END 2019-11-10 23:58 | disposition home or self-care (01) ==
PROVIDERS: Emergency Provider Emergency Medicine; PCP Internal Medicine
DX: J40 Bronchitis, not specified as acute or chronic (principal); R07.89 Other chest pain; J84.10 Pulmonary fibrosis, unspecified; M32.9 Systemic lupus erythematosus, unspecified; Z79.899 Other long term (current) drug therapy
CPT/HCPCS: 36415; 71045; 80048; 84484; 85025; 93005; 99285; A4216

== ENCOUNTER 2020-07-12 02:12 | Emergency (ER) | payer MEDICAID, SELFPAY ==
[2020-07-12 02:12] VITALS: BP 145/108; PULSE 69; RESP 17; TEMP 36.3; O2SAT 96; BMI 36.8
--- NOTE | 2020-07-12 02:38 | CT_ITS ---
STUDY: CT ORBITS WITH CONTRAST REASON FOR EXAM: Female, 39 years old. Scratched in left eye by dog. Pain. Unable to open. RADIATION DOSAGE (If Supplied By Facility): CTDIvol = ( 29.38 ) mGy, DLP = ( 371.15 ) mGycm TECHNIQUE: The patient was scanned in a multi detector CT scanner. Transaxial imaging was performed following the intravenous administration of IV 50mL Isovue-370. Sagittal and coronal images were reconstructed. Individualized dose optimization techniques were used for this CT. COMPARISON: None. FINDINGS: Normal globes. Normal intraconal spaces. Normal optic nerve sheath complex. Normal bilateral extraocular muscles. Normal lacrimal glands. No foreign body identified. No appreciable periorbital edema. Normal bilateral medial and inferior orbital lopes. Normal bilateral maxillary bones. Normal bilateral frontozygomatic arches. Normal bilateral zygomatic temporal arches. Normal frontal sinus. Normal ethmoidal sinuses. Normal maxillary sinuses. Normal sphenoid sinuses. Bilateral rodolfo bullosa. Normal soft tissue structures. There is no demonstrated abnormal enhancement. CT/Orb Sella Post Fossa Ear W/CON IMPRESSION: Normal enhanced CT examination of the bilateral orbits. Left orbit is normal. Electronically Signed: José Manuel Antonio MD at 4:00 EST , Service support ,
[2020-07-12] MEDS: HYDROmorphone 1 MG/ML Syringe IV ×2 (03:00→05:35)
[2020-07-12] MEDS: Tetracaine 0.5% Ophthalmic Bottle 2 DRP LEFT EYE (03:03)
[2020-07-12] MEDS: Ondansetron 4 MG/2 ML Vial IV (03:04)
--- NOTE | 2020-07-12 03:24 | ED.VISSUMM ---
- ER Visit Summary Date of Service: 07/12/20 Chief Complaint: Dog scratch left eye History of Present Illness: The patient is a 39 F presenting with dog scratch to left eye. She states her puppy was playing and pawed at her face. She states her left eye was scratched. This occurred just prior to arrival. No other injuries. Physical Examination: Vitals are stable. Patient is afebrile. Alert no acute distress. HEENT exam difficulty opening left eye. Pupil equal round reactive to light. Conjunctive injected. Neck is supple. Lungs are clear and equal bilaterally. Heart is regular rate and rhythm. Skin is warm and dry. No focal neurologic deficit. Remainder of exam is unremarkable. Emergency Department Course and Treatment: Patient was given Dilaudid, Zofran. Currently no fluorescein available. CT orbits shows normal enhanced CT examination of the bilateral orbits. Left orbit is normal. Tetracaine was instilled in the left eye with some improvement of her pain. Visual acuity 20/40 0D, 20/50 OS. Patient is still having significant pain. Exam is limited. Concern for laceration. Discussed with Dr. Dumont second floor operator for ophthalmology. She will evaluate the patient in the emergency department. Patient was evaluated by Dr. Dumont. She has a conjunctival laceration and corneal abrasion. She will be started on erythromycin ointment and ofloxacin drops. She advises follow-up tomorrow, because she has seen Dr. Mi in the past she will follow-up with him tomorrow. Discussed with Dr. Seals, on-call to arrange follow-up tomorrow. Disposition: Discharge home Impression: Left Conjunctival laceration, left corneal abrasion This note was generated with [employer] dictation software. It may contain incorrect words, spelling, and punctuation that were not noted in review of the chart prior to signing ED Disposition - Plan for ED Patient: Instructions: ED Corneal Abrasion Prescriptions: Ofloxacin 1 drp OP 4X/DAY 7 Days #1 opth.[email or web address] Prescription Printed Oxycodone HCl/Acetaminophen [Percocet 5/325] 1 tab PO Q6H PRN PRN 3 Days #12 tab PRN Reason: Pain Prescription Printed Referrals: Lazaro Mi MD [STAFF PHYSICIAN] -
[2020-07-12 04:55] VITALS: RESP 16
--- NOTE | 2020-07-12 06:48 | ED.DEP ---
ED Disposition - Plan for ED Patient: Instructions: ED Corneal Abrasion Prescriptions: Erythromycin Ophthalmic 1 applic LEFT EYE TID 7 Days #1 opth.tube Prescription Printed Ofloxacin 1 drp OP 4X/DAY 7 Days #1 opth.btl Prescription Printed Oxycodone HCl/Acetaminophen [Percocet 5/325] 1 tab PO Q6H PRN PRN 3 Days #12 tab PRN Reason: Pain Prescription Printed Referrals: Lazaro Mi MD [STAFF PHYSICIAN] -
--- NOTE | 2020-07-12 06:53 | CON.PCM_ITS ---
Reason for Consult Date of Consultation: 07/12/20 Reason for Consultation: Dog scratch left eye History of Present Illness: The patient is a 39 year old F [] who was struck by her dog's paw the previous night. Notices pain, light sensitivity, and foreign body sensation left eye. Past Medical History Past Medical History (Chronic Problems): Chronic Problems (Last Updated 10/30/19 @ 14:45 by Sylvia Livingston) Gastritis (Chronic) Hiatal hernia (Chronic) Chronic pain (Chronic) Depression with anxiety (Chronic) SLE (systemic lupus erythematosus) (Chronic) Sleep apnea (Chronic) Vascular disease (Chronic) IBS (irritable bowel syndrome) (Chronic) Hearing problem (Chronic) Anemia (Chronic) Rheumatoid arthritis (Chronic) Hypersomnia (Chronic) Allergic rhinitis (Chronic) Shortness of breath (Chronic) Interstitial lung disease (Chronic) Lupus (Chronic) Asthma (Chronic) Bronchitis (Chronic) Depression (Chronic) Pulmonary fibrosis (Chronic) Pulmonary nodule (Chronic) GERD (gastroesophageal reflux disease) (Chronic) MYRTLE (obstructive sleep apnea) (Chronic) Allergic rhinitis (Chronic) Medical History: Medical History (Last Reviewed 07/12/20 @ 06:[address] Citlalli Dumont MD) Gastritis (Chronic) K29.70 Hiatal hernia (Chronic) K44.9 Sleep apnea (Chronic) G47.30 Vascular disease (Chronic) I99.9 IBS (irritable bowel syndrome) (Chronic) K58.9 Hearing problem (Chronic) H91.90 Anemia (Chronic) D64.9 Rheumatoid arthritis (Chronic) M06.9 Hypersomnia (Chronic) G47.10 Asthma exacerbation (Acute) J45.901 Allergic rhinitis (Chronic) J30.9 Shortness of breath (Chronic) R06.02 Interstitial lung disease (Chronic) J84.9 Lupus (Chronic) L93.0 Asthma (Chronic) J45.909 Bronchitis (Chronic) J40 Depression (Chronic) F32.9 Pulmonary fibrosis (Chronic) J84.10 Pulmonary nodule (Chronic) R91.1 GERD (gastroesophageal reflux disease) (Chronic) K21.9 Pleurisy (Acute) R09.1 Chest pain R07.9 Shortness of breath R06.02 Allergies amoxicillin Allergy (Verified 07/12/20 02:16) Nausea/Vom/Diarrhea hydrocodone bitartrate [From Vicodin] Allergy (Verified 07/12/20 02:16) Swelling metronidazole [From Flagyl] Adverse Reaction (Verified 07/12/20 02:16) Nausea morphine Adverse Reaction (Verified 07/12/20 02:16) Chest tightness Home Medications: Ambulatory Orders Medication Instructions Recorded Hydroxychloroquine [Plaquenil] 200 mg PO BIDCM #180 tab 08/10/18 Pantoprazole Sodium [Protonix] 40 mg PO BID #60 tab 08/10/18 Venlafaxine HCl [Venlafaxine HCl 150 mg PO DAILY 08/06/19 ER] traZODone [Desyrel] 100 mg PO QHS 08/06/19 Surgical History: Surgical History (Last Reviewed 07/12/20 @ 06:[address] 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 Smoking Status: Never smoker Review of Systems Eyes: Reports: Blurred vision, Pain, Redness HEENT: Reports: Eye Pain Objective: VA OD: J1-2, OS J1-1 PERRL EOM: full OU CVF: full to confrontation OU SLE: OD anterior segment : normal OU OS: External: normal Conjunctiva: laceration temporal approximately 1 cm, 2+ injection, jeremy negative Cornea: Abrasian inferior nasal Anterior Chamber: deep and quiet Iris: round Lens: clear Dilation: tropicamide only OS Disc: 0.3 Vessels: normal course and caliber Macula: flat Periphery: attached 360 degrees - Physical Exam Vitals/I&O's: Vital Signs Temp Pulse Resp BP Pulse Ox 97.3 F L 69 16 145/108 H 96 07/12/20 02:12 07/12/20 02:12 07/12/20 04:55 07/12/20 02:12 07/12/20 02:12 Oxygen Delivery Method Room Air Weight: 116.6 kg Body Mass Index (BMI) 36.8 General: Alert, Oriented x3, Cooperative HEENT: Atraumatic, PERRLA, EOMI, Normocephalic Neck: Supple, No JVD, Negative Carotid Bruits Lungs: Clear to auscultation, Normal air movement Cardiovascular: Regular rate, No murmurs Abdomen: Bowel Sounds Present, Soft, Non Tender Extremities: No edema, Capillary Refill Less than 3 Seconds Skin: No rashes, No breakdown Musculoskeletal: No Tenderness to Palpation of Joints or Extremities Neurological: Cranial nerves II-XII grossly intact Psych/Mental Status: Normal Affect, Appropriate Assessment/Plan All Active Problems (Last Updated 10/30/19 @ 14:45 by Sylvia Livingston) Pharyngitis (Acute) Influenza (Acute) Nausea & vomiting (Acute) Diarrhea (Acute) Abdominal pain (Acute) Gastroenteritis (Acute) Asthma exacerbation (Acute) Pleurisy (Acute) Sinusitis (Acute) Asthma exacerbation (Acute) 1. Conjunctival Laceration OS. CT scan no evidence of rupture Slit lamp exploration with cotton tip without sceral penetration Begin erythromycin ointment q2 hours while awake OS 2. Cornea Abrasian OS: Begin ofloxacin four times daily OS Follow up 1` day Dr. Mi, primary eye doctor [facility] Citlalli Dumont MD
--- NOTE | 2020-07-12 07:05 | ED.DEP ---
ED Disposition - Plan for ED Patient: Instructions: ED Corneal Abrasion Prescriptions: Ofloxacin 1 drp OP 4X/DAY 7 Days #1 opth.[email or web address] Prescription Printed Oxycodone HCl/Acetaminophen [Percocet 5/325] 1 tab PO Q6H PRN PRN 3 Days #12 tab PRN Reason: Pain Prescription Printed Referrals: Lazaro Mi MD [STAFF PHYSICIAN] -
[2020-07-12] MEDS: Ondansetron ODT 4 MG Tablet PO (07:14)
[2020-07-12] MEDS: Erythromycin Base 1 OPTH.TUBE 1 APPLIC LEFT EYE (07:14)
[2020-07-12 07:21] VITALS: BP 129/82; PULSE 52; RESP 17; O2SAT 97
--- NOTE | 2020-07-12 07:21 | ED.RN ---
IV DC'ED, CATHETER INTACT, SMALL GAUZE DRESSING PLACED.
--- NOTE | 2020-07-12 07:50 | ED.RN ---
DISCHARGE INSTRUCTIONS GIVEN TO AND REVIEWED WITH PATIENT, PATENT DENIES QUESTIONS OR CONCERNS AND VOICES UNDERSTANDING OF DISCHARGE INSTRUCTIONS.
--- NOTE | 2020-07-12 08:03 | ED.RN ---
PT TO PRIVATE VEHICLE VIA WHEELCHAIR.
== END 2020-07-12 08:03 | disposition home or self-care (01) ==
LOC: ED 02:44
PROVIDERS: Emergency Provider Emergency Medicine; PCP Internal Medicine
DX: S05.02XA Injury of conjunctiva and corneal abrasion without foreign body, left eye, initial encounter (principal); J45.909 Unspecified asthma, uncomplicated; K21.9 Gastro-esophageal reflux disease without esophagitis; X58.XXXA Exposure to other specified factors, initial encounter; Y93.9 Activity, unspecified; Y92.89 Other specified places as the place of occurrence of the external cause; Y99.8 Other external cause status
CPT/HCPCS: 70481; 96374; 96375; 96376; 99285; Q9967; A4216; J2405

== ENCOUNTER 2020-09-27 17:14 | Emergency (ER) | payer MEDICAID, SELFPAY ==
[2020-09-27 17:16] VITALS: BP 133/91; PULSE 69; RESP 16; TEMP 35.5; O2SAT 97; BMI 36.8
--- NOTE | 2020-09-27 17:30 | ED.VIS.GEN ---
History of Present Illness Chief Complaint: Abd Pain Informant: Patient Onset: Days - 3 days Context: Gradual Onset Current Severity: Moderate Maximum Severity: Moderate Narrative: Patient presents secondary to abdominal pain. She states pain is been ongoing for 3 days. It initially started out mid abdomen and is now worse in the left lower quadrant. She states she feels like she is bloating and nauseated. She has had similar type flares with her lupus, however states pain typically does not move down to the left lower quadrant. She also started with vaginal bleeding yesterday. She said her last menstrual cycle was on September 06. There is a possibility of . She has not taken a test. She denies fever or chills. - Past Medical History (1) Asthma Status: Chronic (2) Depression with anxiety Status: Chronic (3) GERD (gastroesophageal reflux disease) Status: Chronic (4) Hiatal hernia Status: Chronic (5) IBS (irritable bowel syndrome) Status: Chronic (6) Lupus Status: Chronic (7) Pulmonary fibrosis Status: Chronic (8) Rheumatoid arthritis Status: Chronic Past Medical History - Allergies and Home Meds Allergies/Adverse Reactions: Allergies amoxicillin Allergy (Verified 09/27/20 17:15) Nausea/Vom/Diarrhea hydrocodone bitartrate [From Vicodin] Allergy (Verified 09/27/20 17:15) Swelling metronidazole [From Flagyl] Adverse Reaction (Verified 09/27/20 17:15) Nausea morphine Adverse Reaction (Verified 09/27/20 17:15) Chest tightness Primary Care Physician: Kelli Ram MD [Primary Care Provider] - Prior records reviewed: Yes Surgical History: cholecystectomy, - - Ovarian cyst Smoking Status: Never smoker Review of Systems General: Denies: Chills, Fever Eyes: Denies: Visual changes - bilaterally ENT: Denies: Bilateral ear pain Cardiovascular: Denies: Chest pain Respiratory: Denies: Dyspnea, Cough Gastrointestinal: Reports: Abdominal pain, Nausea Musculoskeletal: Denies: Extremity Pain Skin: Denies: Rash Neurological: Denies: Headache Allergy: Denies: Uticaria Physical Exam Vital Signs/Narrative: Vital Signs Temp Pulse Resp BP Pulse Ox 09/27/20 17:16 96 F L 69 16 133/91 H 97 Inital Vital Signs reviewed: Yes General: Well nourished, Well developed Head: Normocephalic Neck: Supple Cardiovascular: Regular rate, Regular rhythm Respiratory: No distress, CTA bilaterally Abdomen: Tender - Left lower quadrant tenderness palpation.. Negative for: Guarding, Rebound tenderness Extremities: Nontender Skin: Normal color Neurological: Alert, Oriented x3 Psychological: Normal affect Diagnostic/Tx/Re-eval Impressions Abdomen/Pelvis CT 09/27/20 18:22 IMPRESSION: 1. Hepatomegaly with fatty infiltration. 2. Diverticulosis without acute inflammatory change. 3. Otherwise normal CT of the abdomen and pelvis. Electronically Signed: Mitch EmersonDO at 20:31 EST Tel [phone], Service support , 09/27/20 18:22 Abdomen/Pelvis WITH Contrast [CT] Stat Laboratory Results 09/27/20 09/27/20 09/27/20 17:43 17:43 17:43 WBC 5.2 RBC 4.57 Hgb 14.5 Hct 41.3 MCV 90.4 MCH 31.7 MCHC 35.1 RDW Std Deviation 43.1 RDW Coeff of Tiesha 13.2 Plt Count 234 MPV 10.3 Immature Gran % (Auto) 0.600 Neut % (Auto) 51.6 Lymph % (Auto) 37.6 [place] % (Auto) 7.9 Eos % (Auto) 1.7 Baso % (Auto) 0.6 Absolute Neuts (auto) 2.7 Absolute Lymphs (auto) 1.94 Nucleated RBC % 0 Sodium 141 Potassium 3.8 Chloride 110 H Carbon Dioxide 24.0 Anion Gap 7 BUN 16 Creatinine 0.92 Estim Creat Clear Calc 86.14 Est GFR (MDRD) Af Amer 86 Est GFR (MDRD) Non-Af 71 BUN/Creatinine Ratio 17.4 Glucose 96 Calcium 8.4 L Serum , Qual NEGATIVE - Medical Decision Making Patient was given Dilaudid and Zofran for pain control here. Test results are discussed with her. I did offer to do a pelvic examination but she declined. Most of her pain is periumbilical I do not think this is directly related to her vaginal bleeding. She has had pain similar to this in the past with her lupus flare. She states they typically will give her a Medrol Dosepak and pain medication. We will do this for her and she is given return instructions. She is comfortable with the plan. ED Disposition - Plan for ED Patient: Disposition: Home or Assisted Living Diagnosis: Abdominal pain Instructions: ED Abdominal Pain Unkn Cause Fem Prescriptions: MethylPREDNISolone DosePak [Medrol DosePak] 4 mg PO UD #1 box Transmission Status: Pending to [facility] Oxycodone HCl/Acetaminophen [Percocet 5/325] 1 tablet PO Q6H PRN PRN 3 Days #12 tablet PRN Reason: Pain Transmission Status: Received by [facility] Ondansetron [Zofran Odt] 4 mg PO Q8H PRN PRN #10 tab PRN Reason: Nausea Transmission Status: Pending to [facility] Referrals: Kelli Ram MD [Primary Care Provider] - 1 Week
[2020-09-27] MEDS: 0.9% Normal Saline 1,000 ML 150 ML IV (17:57)
[2020-09-27] MEDS: Ondansetron 4 MG/2 ML Vial IV (17:57)
[2020-09-27] MEDS: HYDROmorphone 1 MG/ML Syringe 0.5 MG IV (17:58)
[2020-09-27 18:08] LABS: Absolute Lymphocyte Count 1.94 X10^3/uL (0.83-4.51); Absolute Neutrophil Count 2.7 X10^3/uL (2.0-7.7); Anion Gap 7 (5-15); BUN 16 mg/dL (7-18); BUN/Creat Ratio 17.4 RATIO (10-20); Basophil# 0.03 X10^3/uL; Basophil% 0.6 % (0-1); Calcium,Total 8.4 mg/dL (8.5-10.1); Chloride 110 mmol/L (98-107); Creatinine, Serum 0.92 mg/dL (0.55-1.02); EST Glomerular Filtration Rate 71 mL/min (>60); Eosinophil# 0.09 X10^3/uL; Eosinophils% 1.7 % (0-5); Est Glom Filt Rate - Afr Amer 86 mL/min (>60); Estimated Creatinine Clearance 86.14 ml/min; Glucose 96 mg/dL (74-106); Hematocrit 41.3 % (37-47); Hemoglobin 14.5 g/dL (12.0-15.0); Lymphocyte # 1.94 X10^3/ul (4.0); Lymphocyte % 37.6 % (19-41); Mean Corp Hgb Conc 35.1 g/dL (32-36); Mean Corpuscular Hgb 31.7 pg (27.0-32.0); Mean Corpuscular Volume 90.4 fL (81-99); Mean Platelet Vol. 10.3 fl (6.2-12.0); Monocyte# 0.41 X10^3/uL; Monocyte% 7.9 % (0-10); NRBC Flagged by Analyzer 0 % (0-5); Neutrophil # 2.66 X10^3/uL (2.7-7.7); Neutrophil % 51.6 % (47-70); Platelet Count 234 K/mm3 (150-450); Potassium 3.8 mmol/L (3.5-5.1); RBC Distribution Width CV 13.2 % (11.6-14.6); RBC Distribution Width SD 43.1 fl (35.1-43.9); Red Blood Count 4.57 M/mm3 (4.2-5.4); Sodium Level 141 mmol/L (136-145); White Blood Count 5.2 K/mm3 (4.4-11.0)
[2020-09-27 18:16] LABS: Internal QC Validated? YES +Cl - CLEAR BKGD; Pregnancy, Serum, hCG Quali. NEGATIVE Negative
--- NOTE | 2020-09-27 18:22 | CT_ITS ---
STUDY: CT ABDOMEN AND PELVIS WITH CONTRAST REASON FOR EXAM: Female, 40 years old. Bloating. Nausea. Vaginal bleeding for 3 days. Left lower quadrant and mid abdominal pain. RADIATION DOSAGE (If Supplied By Facility): CTDIvol = ( 24.03 ) mGy, DLP = ( 1468.07 ) mGycm TECHNIQUE: Transaxial images were obtained from the dome of the diaphragm to the symphysis pubis with oral contrast. Oral and amp; IV Gastrografin and amp; 100mL Isovue-370 was administered. Sagittal and coronal images were reconstructed. Individualized dose optimization techniques were used for this CT. COMPARISON: CT of the abdomen and pelvis, 08/08/2018. FINDINGS: The visualized lung bases are unremarkable. The visualized portions of the heart are within normal limits. The liver is mildly enlarged. There is diffuse fatty infiltration with focal fatty sparing portable hilum. There is no enhancing mass. There is non-visualization of the gallbladder, which may be secondary to either contraction or a prior cholecystectomy. Normal spleen. Normal pancreas. Normal bilateral adrenal glands. Normal right kidney. Normal left kidney. Normal visualized ureters. Normal visualized stomach. Normal small intestine. Scattered colonic diverticuli without acute inflammatory change. The appendix is visualized and appears normal. Normal abdominal aorta. Normal inferior vena cava. Normal retroperitoneum. Normal urinary bladder. Normal uterus and adnexa. There is no pelvic lymphadenopathy. No free air or free fluid is seen within the peritoneal cavity Normal abdominal wall. Normal osseous structures. CT/Abdomen/Pelvis WITH Contrast IMPRESSION: 1. Hepatomegaly with fatty infiltration. 2. Diverticulosis without acute inflammatory change. 3. Otherwise normal CT of the abdomen and pelvis. Electronically Signed: Mitch Emerson DO at 20:31 EST Tel [phone], Service support ,
[2020-09-27] MEDS: HYDROmorphone 0.5 MG/0.5 ML SYRINGE IV (19:09)
[2020-09-27 20:00] VITALS: RESP 18
[2020-09-27 20:42] VITALS: BP 113/78; PULSE 55; RESP 13; O2SAT 97
[2020-09-27 21:18] VITALS: BP 120/86; PULSE 55; RESP 21; O2SAT 98
[2020-09-27] MEDS: MethylPREDNISolone 4 MG Tablet PO (21:21)
== END 2020-09-27 21:23 | disposition home or self-care (01) ==
PROVIDERS: Emergency Provider Emergency Medicine; PCP Internal Medicine
DX: R10.32 Left lower quadrant pain (principal); J45.909 Unspecified asthma, uncomplicated; K21.9 Gastro-esophageal reflux disease without esophagitis; M06.9 Rheumatoid arthritis, unspecified; F32.9 Major depressive disorder, single episode, unspecified; F41.9 Anxiety disorder, unspecified; Z79.899 Other long term (current) drug therapy
CPT/HCPCS: 74177; 80048; 84703; 85025; 96361; 96374; 96375; 96376; 99285; J7030; Q9967; A4216; J2405

== ENCOUNTER 2021-03-30 15:51 | Emergency (ER) | payer MEDICAID, SELFPAY ==
[2021-03-30 15:52] VITALS: BP 123/99; PULSE 71; RESP 15; TEMP 36; O2SAT 99; BMI 34.4
[2021-03-30 15:54] VITALS: BP 123/99; PULSE 71; RESP 15; TEMP 36; O2SAT 99
--- NOTE | 2021-03-30 16:39 | EKG12_ITS ---
Test Reason : Blood Pressure : / mmHG Vent. Rate : 067 BPM Atrial Rate : 067 BPM P-R Int : 150 ms QRS Dur : 082 ms QT Int : 410 ms P-R-T Axes : 043 053 043 degrees QTc Int : 433 ms Normal sinus rhythm Normal ECG Confirmed by IGNACIO AVALOS, ESME ([id number]), graphics editor ITA GRACE ([id number]) on 04/04/2021 9:05:27 AM Referred By: EDPYS Confirmed By:ZE PIERRE MD
--- NOTE | 2021-03-30 16:40 | EX.ED.DYSGE1 ---
HPI History of Present Illness Chief Complaint: Nausea/Vomiting/Diarrhea Informant: patient Narrative Narrative: 40-year-old female with a history of pulmonary fibrosis and lupus who presents to the emergency room diarrhea and nausea. She states that 3 days ago she began to have nasal congestion and sore throat. She woke today with diarrhea and epigastric discomfort as well as nausea. She notes a dry cough and burning in her chest. She notes posttussive emesis. No reported fevers. She is not Covid vaccinated. She started a Medrol Dosepak on Sunday evening. She takes hydroxychloroquine PFSH PFSH Medical History (Updated 03/30/21 @ 18:[address] Dima Funk, DO) Allergic rhinitis Anemia Asthma Asthma exacerbation Bronchitis Chest pain Depression Gastritis GERD (gastroesophageal reflux disease) Hearing problem Hiatal hernia Hypersomnia IBS (irritable bowel syndrome) Interstitial lung disease Lupus Pleurisy Pulmonary fibrosis Pulmonary nodule Rheumatoid arthritis Shortness of breath Shortness of breath Sleep apnea Vascular disease Home Medications hydroxychloroquine 200 mg PO BIDCM #180 tab 08/10/18 [Rx Last Taken Unknown] pantoprazole 40 mg PO BID #60 tab 08/10/18 [Rx Last Taken Unknown] venlafaxine 150 mg PO DAILY 08/06/19 [History Last Taken Unknown] methylprednisolone 4 mg PO UD #1 box 09/27/20 [Rx Last Taken Unknown] ondansetron 4 mg PO Q8H PRN PRN #10 tab 09/27/20 [Rx Last Taken Unknown] Allergy/AdvReac Type Severity Reaction Status Date / Time amoxicillin Allergy Nausea/Vom/ Verified 03/30/21 15:54 Diarrhea hydrocodone bitartrate Allergy Swelling Verified 03/30/21 15:54 [From Vicodin] metronidazole [From Flagyl] AdvReac Nausea Verified 03/30/21 15:54 morphine AdvReac Chest Verified 03/30/21 15:54 tightness Family History Mother Bladder cancer Hypertension Diabetes Alcoholism Arthritis Father Lung cancer with mets to the brain Alcoholism Grandfather Bowel disease Colon cancer Grandfather Lung cancer Grandmother No problems noted. Surgical History history ear drum replacement History of cholecystectomy History of colonoscopy History of tonsillectomy Social History (Updated 10/30/19 @ 15:17 by Faizan LOPEZ PA) Smoking Status: Never smoker second hand exposure: No alcohol intake: current alcohol intake frequency: holidays/special occasions only Alcohol type: beer and wine substance use type: does not use what type of physical activity do you participate in: none EXAM Physical Exam Const Vital Signs: 03/30/21 15:52 03/30/21 15:54 Temperature 96.8 F L 96.8 F L Temperature Source Temporal Temporal Pulse Rate 71 71 Respiratory Rate 15 15 Blood Pressure 123/99 H 123/99 H Blood Pressure Mean 107 107 Pulse Ox 99 99 Oxygen Delivery Method Room Air Room Air MDM MDM MDM Narrative Medical decision making narrative: Basic blood work was obtained and shows a white count of 4.0. D-dimer is negative. test is negative. Electrolytes are normal. My interpretation of the chest x-ray is no acute process. Unfortunately the patient's COVID-19 test is positive which does explain her symptoms and laboratory findings. She has not required any supplemental oxygen. She is already on steroids would recommend that she continue her Medrol pack self isolate and monitor her breathing return is worsening or concerns Lab Data Attestation: I reviewed the patient's lab results. Labs: Laboratory Results - last 24 hr 03/30/21 03/30/21 03/30/21 17:02 17:02 17:02 WBC 4.0 L RBC 4.52 Hgb 14.2 Hct 41.1 MCV 90.9 MCH 31.4 MCHC 34.5 RDW Std Deviation 46.2 H RDW Coeff of Tiesha 13.9 Plt Count 219 MPV 10.1 Immature Gran % (Auto) 0.500 Neut % (Auto) 48.8 Lymph % (Auto) 38.0 [place] % (Auto) 9.1 Eos % (Auto) 2.8 Baso % (Auto) 0.8 Absolute Neuts (auto) 1.9 L Absolute Lymphs (auto) 1.50 Nucleated RBC % 0 D-Dimer Quant (PE/DVT) Sodium 138 Potassium 3.7 Chloride 111 H Carbon Dioxide 20.0 L Anion Gap 7 BUN 11 Creatinine 0.73 Estim Creat Clear Calc 108.56 Est GFR (MDRD) Af Amer 112 Est GFR (MDRD) Non-Af 93 BUN/Creatinine Ratio 15.0 Glucose 95 Calcium 8.0 L Total Bilirubin 0.80 AST 34 ALT 40 Alkaline Phosphatase 79 Total Protein 7.1 Albumin 3.0 L Globulin 4.1 Albumin/Globulin Ratio 0.7 L Lipase 148 Serum , Qual NEGATIVE 03/30/21 17:02 WBC RBC Hgb Hct MCV MCH MCHC RDW Std Deviation RDW Coeff of Tiesha Plt Count MPV Immature Gran % (Auto) Neut % (Auto) Lymph % (Auto) [place] % (Auto) Eos % (Auto) Baso % (Auto) Absolute Neuts (auto) Absolute Lymphs (auto) Nucleated RBC % D-Dimer Quant (PE/DVT) <= 0.27 Sodium Potassium Chloride Carbon Dioxide Anion Gap BUN Creatinine Estim Creat Clear Calc Est GFR (MDRD) Af Amer Est GFR (MDRD) Non-Af BUN/Creatinine Ratio Glucose Calcium Total Bilirubin AST ALT Alkaline Phosphatase Total Protein Albumin Globulin Albumin/Globulin Ratio Lipase Serum , Qual Radiography Diagnostic Testing: Radiology Impression Chest X-Ray 03/30/21 17:15 IMPRESSION: Normal x-ray examination of the chest. Electronically Signed: Danny Cavazos MD at 17:28 EDT , Service support , Discharge Plan Triage Chief Complaint: Nausea/Vomiting/Diarrhea ED Provider: Dima Funk Dx/Rx/DC Orders Clinical Impression: COVID-19 Instructions: Coronavirus Disease 2019 (COVID-19): Caring for Yourself or Others Prescriptions: No Action pantoprazole 40 MG tablet 40 mg PO BID Qty: 60 RF: 0 hydroxychloroquine 200 mg tablet 200 mg PO BIDCM Qty: 180 RF: 3 venlafaxine 150 MG capsule,extended release 24hr 150 mg PO DAILY RF: 0 methylprednisolone 4 MG tablets,dose pack 4 mg PO UD Qty: 1 RF: 0 ondansetron 4 MG tablet 4 mg PO Q8H PRN PRN (Reason: Nausea) Qty: 10 RF: 0 Primary Care Provider: Kelli aRm Referrals: Kelli Ram MD [Primary Care Provider] - As Needed Disposition Disposition: Home, Self Care
[2021-03-30 17:10] LABS: Absolute Neutrophil Count 1.9 X10^3/uL (2.0-7.7); Basophil# 0.03 X10^3/uL; Basophil% 0.8 % (0-1); Eosinophil# 0.11 X10^3/uL; Eosinophils% 2.8 % (0-5); Hematocrit 41.1 % (37-47); Hemoglobin 14.2 g/dL (12.0-15.0); Mean Corp Hgb Conc 34.5 g/dL (32-36); Mean Corpuscular Hgb 31.4 pg (27.0-32.0); Mean Corpuscular Volume 90.9 fL (81-99); Mean Platelet Vol. 10.1 fl (6.2-12.0); Monocyte# 0.36 X10^3/uL; Monocyte% 9.1 % (0-10); NRBC Flagged by Analyzer 0 % (0-5); Neutrophil # 1.93 X10^3/uL (2.7-7.7); Neutrophil % 48.8 % (47-70); Platelet Count 219 K/mm3 (150-450); RBC Distribution Width CV 13.9 % (11.6-14.6); RBC Distribution Width SD 46.2 fl (35.1-43.9); Red Blood Count 4.52 M/mm3 (4.2-5.4)
--- NOTE | 2021-03-30 17:15 | RAD_ITS ---
STUDY: X-RAY CHEST REASON FOR EXAM: Female, 40 years old. Fever and cough TECHNIQUE: Single AP portable view of the chest. COMPARISON: None. FINDINGS: EKG leads overlie the chest The lungs are clear and expanded. There is no demonstrated pleural abnormality. Normal size heart. Normal mediastinum and germán. Normal visualized pulmonary arteries. Normal visualized aortic arch and descending thoracic aorta. Normal visualized thoracic spine. Normal visualized ribs, clavicles, and shoulders. There is no demonstrated abnormality of the visualized soft tissue structures of the upper abdomen. RAD/Chest 1 View (Portable) IMPRESSION: Normal x-ray examination of the chest. Electronically Signed: Danny Cavazos MD at 17:28 EDT , Service support ,
[2021-03-30] MEDS: 0.9% Normal Saline 1,000 ML 1000 ML IV (17:16)
[2021-03-30] MEDS: Ondansetron 4 MG/2 ML Vial IV (17:16)
[2021-03-30 17:28] LABS: ALB/GLOB Ratio 0.7 RATIO (0.9-2.4); AST(SGOT) 34 U/L (15-37); Alanine Aminotransfer ALT/SGPT 40 U/L (13-56); Alkaline Phosphatase 79 U/L (45-117); Anion Gap 7 (5-15); BUN 11 mg/dL (7-18); Chloride 111 mmol/L (98-107); Creatinine, Serum 0.73 mg/dL (0.55-1.02); EST Glomerular Filtration Rate 93 mL/min (>60); Est Glom Filt Rate - Afr Amer 112 mL/min (>60); Estimated Creatinine Clearance 108.56 ml/min; Globulin 4.1 g/dL (2.2-4.2); Glucose 95 mg/dL (74-106); Lipase 148 U/L (73-393); Potassium 3.7 mmol/L (3.5-5.1); Protein, Total 7.1 g/dL (6.4-8.2); Sodium Level 138 mmol/L (136-145)
[2021-03-30 17:50] LABS: Internal QC Validated? YES +Cl - CLEAR BKGD; Pregnancy, Serum, hCG Quali. NEGATIVE Negative
[2021-03-30 18:00] LABS: D-Dimer Quantitative (DVT/PE) <= 0.27 FEU/ug/m (0.27-0.49)
[2021-03-30 18:21] VITALS: BP 103/69; PULSE 63; RESP 14; O2SAT 99
== END 2021-03-30 18:26 | disposition home or self-care (01) ==
PROVIDERS: Emergency Provider Emergency Medicine; PCP Internal Medicine
DX: U07.1 COVID-19 (principal); J45.909 Unspecified asthma, uncomplicated; F32.9 Major depressive disorder, single episode, unspecified; K21.9 Gastro-esophageal reflux disease without esophagitis; M06.9 Rheumatoid arthritis, unspecified; Z79.899 Other long term (current) drug therapy
CPT/HCPCS: 71045; 80053; 83690; 84703; 85025; 85379; 87426; 93005; 96361; 96374; 99284; J7030; A4216; J2405

== ENCOUNTER 2021-04-03 17:35 | Emergency (ER) | payer MEDICAID, SELFPAY ==
[2021-04-03 17:36] VITALS: BP 98/75; PULSE 113; RESP 18; TEMP 36.6; O2SAT 98; BMI 34.7
--- NOTE | 2021-04-03 18:47 | EDS_ITS ---
HPI History of Present Illness Chief Complaint: Abd Pain Informant: patient Narrative Narrative: Patient is a 40-year-old female with a past medical history of lupus, pulmonary fibrosis who presents to the emergency department for nausea/vomiting and upper lower quadrant abdominal pain bilaterally. She was just diagnosed with Covid this past Sunday. She states she has had symptoms since Sunday. She has been having body aches since but seems to be getting worse. The abdominal pain became worse this past Sunday. She describes as a 9 out of 10. She is been taking Phenergan as well as Tylenol at home for symptoms which is not giving her any relief. She has been vomiting multiple times. No has been having some loose stools as well. She is still coughing that is productive of sputum. She denies any significant fevers. She states that she was previously feeling short of breath but this has since resolved. No chest pain. She has been feeling generally weak. [facility] Medical History (Updated 04/03/21 @ 21:[address] Jose Armando Aguilar, ) Allergic rhinitis Anemia Asthma Asthma exacerbation Bronchitis Chest pain Depression Gastritis GERD (gastroesophageal reflux disease) Hearing problem Hiatal hernia Hypersomnia IBS (irritable bowel syndrome) Interstitial lung disease Lupus Lupus Pleurisy Pulmonary fibrosis Pulmonary nodule Rheumatoid arthritis Shortness of breath Shortness of breath Sleep apnea Vascular disease Home Medications hydroxychloroquine 200 mg PO BIDCM #180 tab 08/10/18 [Rx Last Taken Unknown] pantoprazole 40 mg PO BID #60 tab 08/10/18 [Rx Last Taken Unknown] methylprednisolone 4 mg PO UD #1 box 09/27/20 [Rx Last Taken Unknown] ondansetron 4 mg PO Q8H PRN PRN #10 tab 09/27/20 [Rx Last Taken Unknown] dicyclomine 20 mg PO BID PRN #10 tab 04/03/21 [Rx Last Taken Unknown] ondansetron 4 mg PO Q8H PRN 4 Days #10 tab 04/03/21 [Rx Last Taken Unknown] Allergy/AdvReac Type Severity Reaction Status Date / Time amoxicillin Allergy Nausea/Vom/ Verified 04/03/21 17:40 Diarrhea hydrocodone bitartrate Allergy Swelling Verified 04/03/21 17:40 [From Vicodin] metronidazole [From Flagyl] AdvReac Nausea Verified 04/03/21 17:40 morphine AdvReac Chest Verified 04/03/21 17:40 tightness Family History Mother Bladder cancer Hypertension Diabetes Alcoholism Arthritis Father Lung cancer with mets to the brain Alcoholism Grandfather Bowel disease Colon cancer Grandfather Lung cancer Grandmother No problems noted. Surgical History history ear drum replacement History of cholecystectomy History of colonoscopy History of tonsillectomy Social History (Updated 10/30/19 @ 15:17 by Faizan LOPEZ, PA) Smoking Status: Never smoker second hand exposure: No alcohol intake: current alcohol intake frequency: holidays/special occasions only Alcohol type: beer and wine substance use type: does not use what type of physical activity do you participate in: none ROS ROS ED Constitutional Constitutional ED: Denies chills or fever(s) Eyes Eyes: Denies change in vision ENT ENT ED: Denies epistaxis or rhinorrhea Cardiovascular Cardiovascular: Denies chest pain or palpitations Respiratory/Chest Respiratory/Chest: Reports cough and sputum; Denies dyspnea Gastrointestinal Gastrointestinal: Reports abdominal pain, diarrhea, nausea and vomiting; Denies constipation or melena Genitourinary Genitourinary ED: Denies dysuria, hematuria or urinary frequency Musculoskeletal Musculoskeletal: Denies neck pain Integumentary Denies rash Neurologic Neurologic: Denies dizziness or headache(s) EXAM Physical Exam Narrative Exam Narrative: Patient dry heaving during exam. Const Vital Signs: 04/03/21 17:36 04/03/21 19:10 04/03/21 21:03 Temperature 97.8 F Temperature Source Temporal Pulse Rate 113 H 72 Respiratory Rate 18 Respiratory Effort Normal Non-Labored Respiratory Depth Normal Respiratory Pattern Normal Blood Pressure 98/75 106/74 Blood Pressure Mean 82 84 Pulse Ox 98 Oxygen Delivery Method Room Air Positive well nourished and well developed General Appearance ED: well developed and NAD HEENT Reports normocephalic, head/scalp atraumatic and moist mucous membranes Eyes PERRL and EOMs intact bilaterally Neck supple Chest Wall inspection of chest normal Resp normal respiratory effort and clear to auscultation bilaterally Auscultation: Negative for rales, rhonchi or wheezes Cardio regular rhythm and no murmurs Rate: tachycardic GI normal to inspection, nondistended, normoactive bowel sounds GI Narrative: Diffuse tenderness but mostly in the upper quadrants bilaterally. No peritoneal signs. Palpation: soft; Negative for guarding or rebound tenderness present Back/Spine no CVA tenderness Extremity normal to inspection General Extremety ED: Negative for edema or tenderness General Extremity: Negative for edema Neuro Sensorium / Orientation: alert Motor Exam: strength 5/5 throughout Psych mental status grossly normal Skin no rashes or lesions noted MDM MDM MDM Narrative Medical decision making narrative: Patient presents to the emergency department for abdominal pain nausea/vomiting. She is Covid positive. On arrival to the ED she is mildly tachycardic. She is satting 98% on room air. No acute distress. We will treat her symptomatically with fluids and Zofran. Will check basic lab work. Patient's lab work did not reveal a significant acute abnormality. Her hemoglobin is mildly high consistent with mild dehydration. Her white blood cell count not elevated. No electrolyte disturbance. Patient was unable to tolerate the oral Bentyl so she was given an IM dose. She will be sent home with a prescription for Zofran and Bentyl for symptomatic treatment. Return precautions are reviewed with her including any worsening pain, inability to keep down fluids, significant shortness of breath. She understands and is agreeable this plan. Lab Data Labs: Laboratory Results - last 24 hr 04/03/21 04/03/21 04/03/21 19:27 19:27 19:27 WBC 5.1 RBC 4.89 Hgb 15.4 H Hct 45.1 MCV 92.2 MCH 31.5 MCHC 34.1 RDW Std Deviation 47.2 H RDW Coeff of Tiesha 13.9 Plt Count 207 MPV 10.4 Immature Gran % (Auto) 0.400 Neut % (Auto) 50.4 Lymph % (Auto) 42.7 H [place] % (Auto) 5.9 Eos % (Auto) 0.2 Baso % (Auto) 0.4 Absolute Neuts (auto) 2.6 Absolute Lymphs (auto) 2.16 Nucleated RBC % 0 Sodium 136 Potassium 3.5 Chloride 106 Carbon Dioxide 22.0 Anion Gap 8 BUN 12 Creatinine 0.87 Estim Creat Clear Calc 91.09 Est GFR (MDRD) Af Amer 91 Est GFR (MDRD) Non-Af 75 BUN/Creatinine Ratio 13.7 Glucose 88 Calcium 7.9 L Total Bilirubin 0.80 AST 44 H ALT 53 Alkaline Phosphatase 93 Total Protein 8.1 Albumin 3.4 Globulin 4.7 H Albumin/Globulin Ratio 0.7 L Lipase 151 Serum , Qual NEGATIVE Discharge Plan Triage Chief Complaint: Abd Pain ED Provider: Jose Armando Aguilar Dx/Rx/DC Orders Clinical Impression: Nausea & vomiting, Abdominal pain Instructions: Abdominal Pain, ED Vomiting (Adult) Prescriptions: New ondansetron 4 mg tablet,disintegrating 4 mg PO Q8H PRN (Reason: nausea and vomiting) 4 Days Qty: 10 RF: 0 dicyclomine 20 mg tablet 20 mg PO BID PRN (Reason: abdominal discomfort) Qty: 10 RF: 0 No Action pantoprazole 40 MG tablet 40 mg PO BID Qty: 60 RF: 0 hydroxychloroquine 200 mg tablet 200 mg PO BIDCM Qty: 180 RF: 3 methylprednisolone 4 MG tablets,dose pack 4 mg PO UD Qty: 1 RF: 0 ondansetron 4 MG tablet 4 mg PO Q8H PRN PRN (Reason: Nausea) Qty: 10 RF: 0 Primary Care Provider: Kelli Ram Referrals: Kelli Ram MD [Primary Care Provider] - 3-5 Days if not improving Disposition Disposition: Home, Self Care Discharge Date/Time: 04/03/21 21:23
[2021-04-03] MEDS: 0.9% Normal Saline 1,000 ML 1000 ML IV (19:32)
[2021-04-03] MEDS: Ondansetron 4 MG/2 ML Vial IV (19:32)
[2021-04-03 19:40] LABS: Absolute Lymphocyte Count 2.16 X10^3/uL (0.83-4.51); Absolute Neutrophil Count 2.6 X10^3/uL (2.0-7.7); Basophil# 0.02 X10^3/uL; Basophil% 0.4 % (0-1); Eosinophil# 0.01 X10^3/uL; Eosinophils% 0.2 % (0-5); Hematocrit 45.1 % (37-47); Hemoglobin 15.4 g/dL (12.0-15.0); Lymphocyte # 2.16 X10^3/ul (0.83-4.51); Lymphocyte % 42.7 % (19-41); Mean Corp Hgb Conc 34.1 g/dL (32-36); Mean Corpuscular Hgb 31.5 pg (27.0-32.0); Mean Corpuscular Volume 92.2 fL (81-99); Mean Platelet Vol. 10.4 fl (6.2-12.0); Monocyte% 5.9 % (0-10); NRBC Flagged by Analyzer 0 % (0-5); Neutrophil # 2.55 X10^3/uL (2.7-7.7); Neutrophil % 50.4 % (47-70); Platelet Count 207 K/mm3 (150-450); RBC Distribution Width CV 13.9 % (11.6-14.6); RBC Distribution Width SD 47.2 fl (35.1-43.9); Red Blood Count 4.89 M/mm3 (4.2-5.4); White Blood Count 5.1 K/mm3 (4.4-11.0)
[2021-04-03 19:50] LABS: Internal QC Validated? YES +Cl - CLEAR BKGD; Pregnancy, Serum, hCG Quali. NEGATIVE Negative
[2021-04-03 19:58] LABS: ALB/GLOB Ratio 0.7 RATIO (0.9-2.4); AST(SGOT) 44 U/L (15-37); Alanine Aminotransfer ALT/SGPT 53 U/L (13-56); Albumin, Serum 3.4 g/dL (3.2-5.0); Alkaline Phosphatase 93 U/L (45-117); Anion Gap 8 (5-15); BUN 12 mg/dL (7-18); BUN/Creat Ratio 13.7 RATIO (10-20); Calcium,Total 7.9 mg/dL (8.5-10.1); Chloride 106 mmol/L (98-107); Creatinine, Serum 0.87 mg/dL (0.55-1.02); EST Glomerular Filtration Rate 75 mL/min (>60); Est Glom Filt Rate - Afr Amer 91 mL/min (>60); Estimated Creatinine Clearance 91.09 ml/min; Globulin 4.7 g/dL (2.2-4.2); Glucose 88 mg/dL (74-106); Lipase 151 U/L (73-393); Potassium 3.5 mmol/L (3.5-5.1); Protein, Total 8.1 g/dL (6.4-8.2); Sodium Level 136 mmol/L (136-145)
[2021-04-03] MEDS: Dicyclomine 20 MG/2 ML Vial IM (20:41)
[2021-04-03 21:03] VITALS: BP 106/74; PULSE 72
== END 2021-04-03 21:23 | disposition home or self-care (01) ==
PROVIDERS: Emergency Provider Emergency Medicine; PCP Internal Medicine
DX: R10.10 Upper abdominal pain, unspecified (principal); R11.2 Nausea with vomiting, unspecified; J45.909 Unspecified asthma, uncomplicated; F32.9 Major depressive disorder, single episode, unspecified; K21.9 Gastro-esophageal reflux disease without esophagitis; M06.9 Rheumatoid arthritis, unspecified; Z79.899 Other long term (current) drug therapy
CPT/HCPCS: 80053; 83690; 84703; 85025; 96361; 96372; 96374; 99285; J7030; A4216; J2405

== ENCOUNTER 2021-05-07 18:22 | Emergency (ER) | payer MEDICAID, SELFPAY ==
[2021-05-07 18:24] VITALS: BP 111/79; PULSE 85; RESP 18; TEMP 36; O2SAT 98; BMI 34.4
--- NOTE | 2021-05-07 18:54 | RAD_ITS ---
STUDY: X-RAY - RIGHT FOOT CLINICAL: Female, 40 years old. INJURY Fell down stairs yesterday, fall. TECHNIQUE: 3 view(s) of the foot. COMPARISON: None. FINDINGS: Normal talus, calcaneus, and tarsal bones. Normal visualized subtalar, talonavicular, calcaneocuboid, tarsal and tarsometatarsal articulations. Normal metatarsi. Normal metatarsophalangeal joint of the great toe. Normal tibial and fibular sesamoid bones. Normal interphalangeal joint of the great toe. Normal phalanges of the great toe. Normal second through fifth metatarsophalangeal joints. Normal interphalangeal joints and phalanges of the lesser toes. The soft tissue structures are unremarkable. There is no demonstrated fracture. RAD/Foot min 3 Views IMPRESSION: Normal x-ray examination of the foot. Electronically Signed: Chon Merino MD at 20:03 EDT , Service support ,
--- NOTE | 2021-05-07 18:54 | RAD_ITS ---
STUDY: X-RAY - RIGHT ANKLE REASON FOR EXAM: Female, 40 years old. Fell down stairs yesterday, lateral pain and swelling. TECHNIQUE: 3 view(s) of the ankle. COMPARISON: None. FINDINGS: Normal visualized distal tibia and fibula. Normal medial and lateral malleoli. Normal tibiotalar articulation and ankle mortise. Normal visualized talus and calcaneus. The visualized subtalar, talonavicular, calcaneocuboid and tarsal articulations are normal. There is no demonstrated fracture. The soft tissue structures are unremarkable. RAD/Ankle min 3 Views IMPRESSION: Normal x-ray examination of the ankle. Electronically Signed: Chon Merino MD at 20:18 EDT , Service support ,
--- NOTE | 2021-05-07 20:10 | EDS_ITS ---
HPI History of Present Illness Chief Complaint: Lower Extremity Injury Narrative Narrative: 40-year-old female presenting with right ankle pain after she put some stairs last evening. She states it hurts in her ankle and the lateral aspect of her right foot. Patient does have some bruising to the area. She states she is nonweightbearing. She took ibuprofen at home at 1 PM today. She denies numbness or tingling. [facility] Medical History Allergic rhinitis Anemia Asthma Asthma exacerbation Bronchitis Chest pain Depression Gastritis GERD (gastroesophageal reflux disease) Hearing problem Hiatal hernia Hypersomnia IBS (irritable bowel syndrome) Interstitial lung disease Lupus Lupus Pleurisy Pulmonary fibrosis Pulmonary nodule Rheumatoid arthritis Shortness of breath Shortness of breath Sleep apnea Vascular disease Home Medications hydroxychloroquine 200 mg PO BIDCM #180 tab 08/10/18 [Rx Last Taken Unknown] pantoprazole 40 mg PO BID #60 tab 08/10/18 [Rx Last Taken Unknown] ondansetron 4 mg PO Q8H PRN PRN #10 tab 09/27/20 [Rx Last Taken Unknown] dicyclomine 20 mg PO BID PRN #10 tab 04/03/21 [Rx Last Taken Unknown] Allergy/AdvReac Type Severity Reaction Status Date / Time amoxicillin Allergy Nausea/Vom/ Verified 04/03/21 17:40 Diarrhea hydrocodone bitartrate Allergy Swelling Verified 04/03/21 17:40 [From Vicodin] metronidazole [From Flagyl] AdvReac Nausea Verified 04/03/21 17:40 morphine AdvReac Chest Verified 04/03/21 17:40 tightness Family History Mother Bladder cancer Hypertension Diabetes Alcoholism Arthritis Father Lung cancer with mets to the brain Alcoholism Grandfather Bowel disease Colon cancer Grandfather Lung cancer Grandmother No problems noted. Surgical History history ear drum replacement History of cholecystectomy History of colonoscopy History of tonsillectomy Social History Smoking Status: Never smoker second hand exposure: No alcohol intake: current alcohol intake frequency: holidays/special occasions only Alcohol type: beer and wine substance use type: does not use what type of physical activity do you participate in: none ROS ROS ED Constitutional Constitutional ED: Denies chills or fever(s) Eyes Eyes: Denies blurry vision or diplopia ENT ENT ED: Denies rhinorrhea or sore throat Cardiovascular Cardiovascular: Denies chest pain, palpitations or racing heartbeat Respiratory/Chest Respiratory/Chest: Denies cough, dyspnea or sputum Gastrointestinal Gastrointestinal: Denies abdominal pain, nausea or vomiting Genitourinary Genitourinary ED: Denies dysuria, hematuria or urinary frequency Musculoskeletal Musculoskeletal: Reports other Details: Right ankle pain Integumentary Denies Abrasions or rash Neurologic Neurologic: Denies headache(s) or paresthesias EXAM Physical Exam Const Vital Signs: 05/07/21 18:24 Temperature 96.8 F L Temperature Source Temporal Pulse Rate 85 Respiratory Rate 18 Blood Pressure 111/79 Blood Pressure Mean 89 Pulse Ox 98 Oxygen Delivery Method Room Air Positive well nourished General Appearance ED: NAD HEENT Reports moist mucous membranes normocephalic Eyes PERRL Resp normal respiratory effort Cardio regular rate and regular rhythm Extremity Extremity Narrative: Bruising over the right lateral malleolus. There is also bruising of the lateral aspect of the right foot. No bony deformities are palpated. Right foot is neurovascular intact brisk cap refill to all 5 toes. Neuro oriented x3 Sensorium / Orientation: alert Psych mental status grossly normal Skin Skin Narrative: Bruising as described above. MDM MDM MDM Narrative Medical decision making narrative: Patient seen and evaluated for right ankle pain. There is some swelling and bruising over the right lateral ankle. X-rays of the right foot and ankle on my interpretation show no acute fracture or subluxation. Patient was given Naprosyn for pain. Patient states that she requires crutches because she is having pain with ambulation and these are provided. She is placed in Venkat wrap and Aircast. Patient will follow up with her PCP to ensure resolution. Impression: 1. Right ankle sprain Radiography Diagnostic Testing: Radiology Impression Ankle X-Ray 05/07/21 18:54 IMPRESSION: Normal x-ray examination of the ankle. Electronically Signed: Chon Merino MD at 20:18 EDT , Service support , Foot X-Ray 05/07/21 18:54 IMPRESSION: Normal x-ray examination of the foot. Electronically Signed: Chon Merino MD at 20:03 EDT , Service support , Discharge Plan Triage Chief Complaint: Lower Extremity Injury ED Provider: Shaquille Kendrick Dx/Rx/DC Orders Instructions: ED Ankle Sprain (Adult) Prescriptions: No Action pantoprazole 40 MG tablet 40 mg PO BID Qty: 60 RF: 0 hydroxychloroquine 200 mg tablet 200 mg PO BIDCM Qty: 180 RF: 3 ondansetron 4 MG tablet 4 mg PO Q8H PRN PRN (Reason: Nausea) Qty: 10 RF: 0 dicyclomine 20 mg tablet 20 mg PO BID PRN (Reason: abdominal discomfort) Qty: 10 RF: 0 Primary Care Provider: Kelli Ram Referrals: Kelli Ram MD [Primary Care Provider] - Disposition Disposition: Home, Self Care
[2021-05-07] MEDS: Naproxen 500 MG Tablet PO (20:16)
== END 2021-05-07 20:54 | disposition home or self-care (01) ==
PROVIDERS: Emergency Provider Student in an Organized Health Care Education/Training Program; PCP Internal Medicine
DX: S93.401A Sprain of unspecified ligament of right ankle, initial encounter (principal); J45.909 Unspecified asthma, uncomplicated; F32.9 Major depressive disorder, single episode, unspecified; K21.9 Gastro-esophageal reflux disease without esophagitis; Z79.899 Other long term (current) drug therapy; X58.XXXA Exposure to other specified factors, initial encounter; Y93.89 Activity, other specified; Y92.009 Unspecified place in unspecified non-institutional (private) residence as the place of occurrence of the external cause; Y99.8 Other external cause status
CPT/HCPCS: 73610; 73630; 99284; A4216

== ENCOUNTER 2021-09-10 18:09 | Emergency (ER) | payer MEDICAID, SELFPAY ==
[2021-09-10 18:11] VITALS: BP 132/98; PULSE 74; RESP 22; TEMP 35.8; O2SAT 99; BMI 36.9
[2021-09-10 18:22] VITALS: BP 132/98; PULSE 74; RESP 22; TEMP 35.8; O2SAT 99
--- NOTE | 2021-09-10 18:42 | EKG12_ITS ---
Test Reason : SOB Blood Pressure : / mmHG Vent. Rate : 069 BPM Atrial Rate : 069 BPM P-R Int : 154 ms QRS Dur : 076 ms QT Int : 416 ms P-R-T Axes : 057 048 029 degrees QTc Int : 445 ms Normal sinus rhythm Normal ECG Confirmed by MARICEL AVALOS, ARIANA ([id number]), associate entertainment editor SANTA BALTAZAR ([id number]) on 09/13/2021 1:27:33 PM Referred By: SILVIO Confirmed By:ARIANA CONNELLY MD
--- NOTE | 2021-09-10 18:44 | EDS_ITS ---
HPI History of Present Illness Chief Complaint: Shortness of Breath Informant: patient Narrative Narrative: Patient presents with cough, wheeze, nasal congestion, subjective fever, myalgias, no nausea vomiting or diarrhea though. She had Covid in May. She has not had any vaccines yet. The patient symptoms just started yesterday. Her daughter tested positive today. Patient does have a history of pulmonary fibrosis and lupus. She has never had blood clots though. She is not having chest pain. She is not having hemoptysis or leg pain or swelling. Her primary complaint is wheezing. She is currently on Plaquenil. [facility] Medical History Allergic rhinitis Anemia Asthma Asthma exacerbation Bronchitis Chest pain Depression Gastritis GERD (gastroesophageal reflux disease) Hearing problem Hiatal hernia Hypersomnia IBS (irritable bowel syndrome) Interstitial lung disease Lupus Lupus Pleurisy Pulmonary fibrosis Pulmonary nodule Rheumatoid arthritis Shortness of breath Shortness of breath Sleep apnea Vascular disease Home Medications hydroxychloroquine 200 mg PO BIDCM #180 tab 08/10/18 [Rx Last Taken Unknown] pantoprazole 40 mg PO BID #60 tab 08/10/18 [Rx Last Taken Unknown] ondansetron 4 mg PO Q8H PRN PRN #10 tab 09/27/20 [Rx Last Taken Unknown] ondansetron 4 mg PO Q8H PRN #10 tab 09/10/21 [Rx Last Taken Unknown] prednisone 10 mg PO BID 09/10/21 [History Last Taken Unknown] Allergy/AdvReac Type Severity Reaction Status Date / Time amoxicillin Allergy Nausea/Vom/ Verified 09/10/21 18:10 Diarrhea hydrocodone bitartrate Allergy Swelling Verified 09/10/21 18:10 [From Vicodin] metronidazole [From Flagyl] AdvReac Nausea Verified 09/10/21 18:10 morphine AdvReac Chest Verified 09/10/21 18:10 tightness Family History Mother Bladder cancer Hypertension Diabetes Alcoholism Arthritis Father Lung cancer with mets to the brain Alcoholism Grandfather Bowel disease Colon cancer Grandfather Lung cancer Grandmother No problems noted. Surgical History history ear drum replacement History of cholecystectomy History of colonoscopy History of tonsillectomy Social History Smoking Status: Never smoker second hand exposure: No alcohol intake: current alcohol intake frequency: holidays/special occasions only Alcohol type: beer and wine substance use type: does not use what type of physical activity do you participate in: none ROS ROS ED Constitutional Constitutional ED: Reports chills, fever(s) and subjective Eyes Eyes: Denies blurry vision ENT ENT ED: Reports rhinorrhea and sore throat; Denies ear pain Cardiovascular Cardiovascular: Denies chest pain or palpitations Respiratory/Chest Respiratory/Chest: Reports cough and dyspnea; Denies sputum Gastrointestinal Gastrointestinal: Denies abdominal pain, diarrhea, nausea or vomiting Genitourinary Genitourinary ED: Denies dysuria Musculoskeletal Musculoskeletal: Reports myalgias Integumentary Denies rash Neurologic Neurologic: Denies headache(s) Psychiatric Psychiatric: Reports anxiety and depression Endocrine Endocrinology: Denies polydipsia or polyuria Allergic/Immunologic Allergic/Immunologic ED: Denies mouth swelling or urticaria EXAM Physical Exam Const Vital Signs: 09/10/21 18:11 09/10/21 18:22 09/10/21 19:05 Temperature 96.4 F L 96.4 F L Temperature Source Temporal Temporal Pulse Rate 74 74 75 Respiratory Rate 22 H 22 H 19 H Respiratory Effort Short of Breath Respiratory Depth Shallow Respiratory Pattern Tachypnea Normal Blood Pressure 132/98 H 132/98 H Blood Pressure Mean 109 109 Pulse Ox 99 99 Oxygen Delivery Method Room Air Room Air 09/10/21 20:35 Temperature Temperature Source Pulse Rate 80 Respiratory Rate 16 Respiratory Effort Respiratory Depth Respiratory Pattern Blood Pressure 121/84 H Blood Pressure Mean 96 Pulse Ox 98 Oxygen Delivery Method Room Air Positive well nourished and well developed Constitutional Narrative: Patient is in no acute distress. I can hear wheezes in the room. However, her vitals look good. She is not tachycardic. Her oxygen level is 98 to 100% on room air. General Appearance ED: well developed and NAD; Negative for cyanotic or diaphoretic HEENT Reports moist mucous membranes Eyes General Eye ED: Negative for pale conjunctiva or scleral icterus Neck no JVD Chest Wall inspection of chest normal Resp normal respiratory effort and No clear to auscultation bilaterally Effort and Inspection: Negative for pain with movement Auscultation: wheezes; Negative for rales or rhonchi Cardio regular rate and regular rhythm GI normal to inspection, nondistended, normoactive bowel sounds Back/Spine no CVA tenderness Extremity normal to inspection Extremity Narrative: No words, no distended veins, no asymmetry. General Extremety ED: Negative for edema or tenderness General Extremity: Negative for edema Neuro oriented x3 Sensorium / Orientation: alert Psych mental status grossly normal Skin no rashes or lesions noted MDM MDM MDM Narrative Medical decision making narrative: Patient's CBC electrolytes show no marked abnormalities. Chest x-ray showed no acute process. Covid and influenza were negative. However, patient does have symptoms of Covid. She states she is feeling a lot better with breathing treatments. She has steroids at home that she will take. I explained she may need further testing for Covid if she continues with symptoms. She states this also might be a flare of her pulmonary disease. She will see how she does on steroids that usually help her. I will write for some Zofran in case she develops nausea because this is so common with Covid and I still think she has a high risk of that. We discussed reasons to return. Lab Data Attestation: I reviewed the patient's lab results. Labs: Laboratory Results - last 24 hr 09/10/21 09/10/21 18:50 18:50 WBC 5.5 RBC 4.39 Hgb 13.6 Hct 39.3 MCV 89.5 MCH 31.0 MCHC 34.6 RDW Std Deviation 43.7 RDW Coeff of Tiesha 13.4 Plt Count 215 MPV 10.2 Immature Gran % (Auto) 0.400 Neut % (Auto) 50.4 Lymph % (Auto) 38.1 [place] % (Auto) 8.1 Eos % (Auto) 2.3 Baso % (Auto) 0.7 Absolute Neuts (auto) 2.8 Absolute Lymphs (auto) 2.11 Nucleated RBC % 0 Sodium 142 Potassium 3.9 Chloride 114 H Carbon Dioxide 22.0 Anion Gap 6 BUN 14 Creatinine 0.74 Estim Creat Clear Calc 107.10 Est GFR (MDRD) Af Amer 111 Est GFR (MDRD) Non-Af 92 BUN/Creatinine Ratio 19.0 Glucose 92 Calcium 8.2 L Radiography Diagnostic Testing: Clinical Impression(s) from Imaging Studies Chest X-Ray 09/10/21 18:53 IMPRESSION: No radiographic evidence of acute cardiopulmonary disease. at 2029 Reported and signed by: Tejas Hinton MD Electronically Signed: Tejas Hinton MD at 20:28 EST Tel , Service support , Discharge Plan Triage Chief Complaint: Shortness of Breath Other Complaint: Asthma ED Provider: Scott Graham Dx/Rx/DC Orders Clinical Impression: Asthma exacerbation, Close exposure to 2019-nCoV Instructions: Coronavirus Disease 2019 (COVID-19): Caring for Yourself or Others, ED Asthma, Acute (Adult) Prescriptions: New ondansetron 4 mg tablet,disintegrating 4 mg PO Q8H PRN (Reason: nausea and vomiting) Qty: 10 RF: 0 No Action pantoprazole 40 MG tablet 40 mg PO BID Qty: 60 RF: 0 hydroxychloroquine 200 mg tablet 200 mg PO BIDCM Qty: 180 RF: 3 ondansetron 4 MG tablet 4 mg PO Q8H PRN PRN (Reason: Nausea) Qty: 10 RF: 0 prednisone 10 mg Tablet 10 mg PO BID RF: 0 Primary Care Provider: Kelli Ram Referrals: Kelli Ram MD [Primary Care Provider] - 3-5 Days if not improving Disposition Disposition: Home, Self Care
--- NOTE | 2021-09-10 18:53 | RAD_ITS ---
EXAM: XR CHEST, 1 VIEW : 1980 CLINICAL INDICATION: cough TECHNIQUE: Frontal view of the chest. This report was created using [employer] 100e report generation technology. COMPARISON: 03/30/2021 FINDINGS: LUNGS AND PLEURAL SPACES: Unremarkable. No consolidation or edema. No pneumothorax. No effusion. HEART: Unremarkable. Cardiac silhouette not enlarged. MEDIASTINUM: Central airways and mediastinal contour are unremarkable. BONES/JOINTS: Unremarkable. SOFT TISSUES: Unremarkable. RAD/Chest 1 View (Portable) IMPRESSION: No radiographic evidence of acute cardiopulmonary disease. at 2028 Reported and signed by: Tejas Hinton MD Electronically Signed: Tejas Hinton MD at 20:28 EST Tel , Service support ,
[2021-09-10 19:05] VITALS: PULSE 75; RESP 19
[2021-09-10 19:05] LABS: Absolute Lymphocyte Count 2.11 X10^3/uL (0.83-4.51); Absolute Neutrophil Count 2.8 X10^3/uL (2.0-7.7); Basophil# 0.04 X10^3/uL; Basophil% 0.7 % (0-1); Eosinophil# 0.13 X10^3/uL; Eosinophils% 2.3 % (0-5); Hematocrit 39.3 % (37-47); Hemoglobin 13.6 g/dL (12.0-15.0); Lymphocyte # 2.11 X10^3/ul (0.83-4.51); Lymphocyte % 38.1 % (19-41); Mean Corp Hgb Conc 34.6 g/dL (32-36); Mean Corpuscular Volume 89.5 fL (81-99); Mean Platelet Vol. 10.2 fl (6.2-12.0); Monocyte# 0.45 X10^3/uL; Monocyte% 8.1 % (0-10); NRBC Flagged by Analyzer 0 % (0-5); Neutrophil # 2.79 X10^3/uL (2.7-7.7); Neutrophil % 50.4 % (47-70); Platelet Count 215 K/mm3 (150-450); RBC Distribution Width CV 13.4 % (11.6-14.6); RBC Distribution Width SD 43.7 fl (35.1-43.9); Red Blood Count 4.39 M/mm3 (4.2-5.4); White Blood Count 5.5 K/mm3 (4.4-11.0)
[2021-09-10] MEDS: Albuterol 2.5 MG/3 ML VIAL.NEB. INHALATION (19:05)
[2021-09-10] MEDS: Ipratropium/Albuterol Sulfate 3 ML AMPUL.NEB INHALATION (19:05)
[2021-09-10] MEDS: MethylPREDNISolone 125 MG/2 ML Vial IV (19:16)
[2021-09-10 19:21] LABS: Anion Gap 6 (5-15); BUN 14 mg/dL (7-18); Calcium,Total 8.2 mg/dL (8.5-10.1); Chloride 114 mmol/L (98-107); Creatinine, Serum 0.74 mg/dL (0.55-1.02); EST Glomerular Filtration Rate 92 mL/min (>60); Est Glom Filt Rate - Afr Amer 111 mL/min (>60); Glucose 92 mg/dL (74-106); Potassium 3.9 mmol/L (3.5-5.1); Sodium Level 142 mmol/L (136-145)
[2021-09-10 20:35] VITALS: BP 121/84; PULSE 80; RESP 16; O2SAT 98
[2021-09-10 22:12] VITALS: BP 128/77; PULSE 71; RESP 16; O2SAT 98
== END 2021-09-10 22:13 | disposition home or self-care (01) ==
PROVIDERS: Emergency Provider Emergency Medicine; PCP Internal Medicine; Visit Provider Emergency Medicine
DX: J45.901 Unspecified asthma with (acute) exacerbation (principal); M32.9 Systemic lupus erythematosus, unspecified; M06.9 Rheumatoid arthritis, unspecified; J84.10 Pulmonary fibrosis, unspecified; Z20.822 Contact with and (suspected) exposure to COVID-19; K21.9 Gastro-esophageal reflux disease without esophagitis; K58.9 Irritable bowel syndrome, unspecified; Z87.19 Personal history of other diseases of the digestive system; F32.A Depression, unspecified; G47.30 Sleep apnea, unspecified; Z79.899 Other long term (current) drug therapy
CPT/HCPCS: 71045; 80048; 85025; 87426; 87804; 93005; 94640; 96374; 99285; A4216

== ENCOUNTER 2022-08-31 16:24 | Emergency (ER) | payer MEDICAID, SELFPAY ==
[2022-08-31 16:25] VITALS: BP 94/81; PULSE 95; RESP 20; TEMP 36.8; O2SAT 99; BMI 34.4
--- NOTE | 2022-08-31 16:55 | RAD_ITS ---
INDICATION: WHEEZING/SHORTNESS OF BREATH EXAMINATION/TECHNIQUE: X-RAY - XR Chest 1 View COMPARISON: 09/10/2021. FINDINGS: Subtle streaky/patchy opacities in the bilateral lung bases. Tortuous and calcified thoracic aorta. The heart is not enlarged. No pleural effusion or pneumothorax. No acute osseous abnormalities. RAD/Chest 1 View (Portable) IMPRESSION: Subtle streaky/patchy opacities in the bilateral lung bases could represent infection versus atelectasis. Electronically Signed: Jayy Ochoa MD at 17:23 EST ,
[2022-08-31 17:17] LABS: Absolute Lymphocyte Count 2.38 X10^3/uL (0.83-4.51); Absolute Neutrophil Count 6.6 X10^3/uL (2.0-7.7); Basophil# 0.03 X10^3/uL; Basophil% 0.3 % (0-1); Eosinophil# 0.05 X10^3/uL; Eosinophils% 0.5 % (0-5); Hematocrit 43.7 % (37-47); Lymphocyte # 2.38 X10^3/ul (0.83-4.51); Lymphocyte % 24.7 % (19-41); Mean Corp Hgb Conc 34.3 g/dL (32-36); Mean Corpuscular Hgb 30.1 pg (27.0-32.0); Mean Corpuscular Volume 87.8 fL (81-99); Mean Platelet Vol. 10.8 fl (6.2-12.0); Monocyte# 0.56 X10^3/uL; Monocyte% 5.8 % (0-10); NRBC Flagged by Analyzer 0 % (0-5); Neutrophil # 6.58 X10^3/uL (2.7-7.7); Neutrophil % 68.3 % (47-70); Platelet Count 231 K/mm3 (150-450); RBC Distribution Width SD 41.3 fl (35.1-43.9); Red Blood Count 4.98 M/mm3 (4.2-5.4); White Blood Count 9.6 K/mm3 (4.4-11.0)
[2022-08-31 17:26] LABS: Anion Gap 4 (5-15); BUN 12 mg/dL (7-18); BUN/Creat Ratio 13.5 RATIO (10-20); Calcium,Total 8.5 mg/dL (8.5-10.1); Chloride 105 mmol/L (98-107); Creatinine, Serum 0.89 mg/dL (0.55-1.02); EST Glomerular Filtration Rate 73 mL/min (>60); Est Glom Filt Rate - Afr Amer 89 mL/min (>60); Estimated Creatinine Clearance 88.14 ml/min; Glucose 95 mg/dL (74-106); Potassium 3.7 mmol/L (3.5-5.1); Sodium Level 135 mmol/L (136-145)
--- NOTE | 2022-08-31 20:23 | ED.RN ---
pt stated she could no longer wait,iv dcd,empathy given.
== END 2022-08-31 20:23 | disposition left against medical advice (07) ==
LOC: ED 20:27
PROVIDERS: PCP Internal Medicine
DX: Z53.21 Procedure and treatment not carried out due to patient leaving prior to being seen by health care provider (principal)
CPT/HCPCS: 71045; 80048; 85025; 87428

== ENCOUNTER → 2023-06-11 | Outpatient (CLI) | payer MEDICAID, SELFPAY ==
[2023-06-11 13:57] LABS: Mucous, Urine 0 SEEN /hpf (<or=2+); Red Blood Cells-Urine 0 SEEN /hpf (0-5)
[2023-06-11 15:07] LABS: Color, Urine Yellow (Yellow); Glucose, Dipstick Normal (Normal); Ketone-Dipstick 5 mg/dl (Negative); Leukocyte Esterase-Dipstick Negative /ul (Negative); Nitrite-Dipstick Negative (Negative); Occult Blood-Urine Negative /ul (Negative); Protein-Dipstick Negative (Negative); Urine Bilirubin Dipstick Negative (Negative); Urine Clarity Clear (Clear); Urine Urobilinogen Normal (Normal)
[2023-06-11 15:14] LABS: Absolute Lymphocyte Count 2.14 X10^3/uL (0.83-4.51); Absolute Neutrophil Count 2.5 X10^3/uL (2.0-7.7); Basophil# 0.03 X10^3/uL; Basophil% 0.6 % (0-1); Eosinophil# 0.09 X10^3/uL; Eosinophils% 1.8 % (0-5); Hematocrit 43.3 % (37-47); Hemoglobin 14.7 g/dL (12.0-15.0); Lymphocyte # 2.14 X10^3/ul (0.83-4.51); Lymphocyte % 42.6 % (19-41); Mean Corp Hgb Conc 33.9 g/dL (32-36); Mean Corpuscular Hgb 29.8 pg (27.0-32.0); Mean Corpuscular Volume 87.8 fL (81-99); Mean Platelet Vol. 10.6 fl (6.2-12.0); Monocyte# 0.27 X10^3/uL; Monocyte% 5.4 % (0-10); NRBC Flagged by Analyzer 0 % (0-5); Neutrophil # 2.48 X10^3/uL (2.7-7.7); Neutrophil % 49.4 % (47-70); Platelet Count 267 K/mm3 (150-450); RBC Distribution Width CV 12.7 % (11.6-14.6); RBC Distribution Width SD 40.6 fl (35.1-43.9); Red Blood Count 4.93 M/mm3 (4.2-5.4)
[2023-06-11 15:18] LABS: Bacteria RARE /hpf (None Seen); Squamous Epithelial Cells - UA 5-10 SEEN /hpf (5-10); White Blood Cells 0-5 SEEN /hpf (0-5)
[2023-06-11 16:01] LABS: ALB/GLOB Ratio 0.8 RATIO (0.9-2.4); AST(SGOT) 18 U/L (15-37); Alanine Aminotransfer ALT/SGPT 24 U/L (13-56); Albumin, Serum 3.6 g/dL (3.2-5.0); Alkaline Phosphatase 82 U/L (45-117); Anion Gap 7 (5-15); BUN 20 mg/dL (7-18); BUN/Creat Ratio 23.9 RATIO (10-20); Calcium,Total 8.3 mg/dL (8.5-10.1); Chloride 108 mmol/L (98-107); Cholesterol 144 mg/dL (200); Creatinine, Serum 0.84 mg/dL (0.55-1.02); EST Glomerular Filtration Rate 78 mL/min (>60); Est Glom Filt Rate - Afr Amer 95 mL/min (>60); Globulin 4.3 g/dL (2.2-4.2); Glucose 89 mg/dL (74-106); High Density Lipoprotein 63 mg/dL; Potassium 3.8 mmol/L (3.5-5.1); Protein, Total 7.9 g/dL (6.4-8.2); Rheumatoid Factor < 10.0 IU/mL (<15); Sodium Level 139 mmol/L (136-145); Triglycerides 78 mg/dL; Very Low Density Lipoprotein 16 mg/dL (5-40)
[2023-06-13 15:08] LABS: ANTINUCLEAR ANTIBODIES DIRECT Positive (Negative); Anti-Centromere B Ab <0.2 AI (0.0-0.9); Anti-Chromatin <0.2 AI (0.0-0.9); Anti-Jo <0.2 AI (0.0-0.9); Anti-Scleroderma-70 AB <0.2 AI (0.0-0.9); Anti-dsDNA Ab <1 IU/mL (0-9); RNP Ab 0.5 AI (0.0-0.9); SJOGREN'S Anti-SS-A test > 8.0 AI (0.0-0.9); SJOGREN'S Anti-SS-B test > 8.0 AI (0.0-0.9); Smith Ab 0.2 AI (0.0-0.9)
== END | disposition home or self-care (01) ==
PROVIDERS: PCP Internal Medicine; Referring Provider Internal Medicine; Visit Provider Internal Medicine
DX: M32.9 Systemic lupus erythematosus, unspecified (principal); M06.9 Rheumatoid arthritis, unspecified; E66.9 Obesity, unspecified; R32 Unspecified urinary incontinence; N32.81 Overactive bladder
CPT/HCPCS: 36415; 80053; 80061; 81001; 85025; 86038; 86225; 86235; 86431; 87086; 87088

== ENCOUNTER 2023-08-04 10:30 | Emergency (ER) | payer MEDICAID, SELFPAY ==
[2023-08-04 10:31] VITALS: BP 112/76; PULSE 69; RESP 15; TEMP 36.7; O2SAT 100; BMI 34.4
--- NOTE | 2023-08-04 10:41 | EDS_ITS ---
HPI HPI - GI History of Present Illness Chief Complaint: Nausea/Vomiting/Diarrhea Narrative Narrative: 42-year-old female presenting with nausea, vomiting, diarrhea. She has some diffuse crampy abdominal pain. She expresses that she has some acid reflux symptoms as well. She think she had a fever last evening has not taken anything for fever today. Patient has body aches, chills. She is unsure if she is come down with something. She does not believe she is eating anything exotic. No urinary or vaginal complaints. Or bloody stools. Patient with history of IBS, gastritis, hiatal hernia, abdominal pain. [facility] Medical History Allergic rhinitis Anemia Asthma Asthma exacerbation Back pain Bronchitis Chest pain Depression Gastritis GERD (gastroesophageal reflux disease) Hearing problem Hiatal hernia Hypersomnia IBS (irritable bowel syndrome) Interstitial lung disease Lupus Lupus OAB (overactive bladder) Obesity (BMI 30-39.9) Pleurisy Pulmonary fibrosis Pulmonary nodule Recurrent cold sores Rheumatoid arthritis Shortness of breath Shortness of breath Sleep apnea Urinary incontinence Vascular disease Home Medications acyclovir 5 % topical cream (Zovirax) 1 applic topical ONCE #5 grams 06/04/23 [Rx Last Taken Unknown] cyclobenzaprine 10 mg tablet 10 mg PO TID PRN muscle spasm #60 tabs 06/04/23 [Rx Last Taken Unknown] hydroxychloroquine 200 mg tablet 200 mg PO BIDCM #180 tabs 06/04/23 [Rx Last Taken Unknown] oxybutynin chloride 5 mg tablet 5 mg PO QHS #60 tabs 06/04/23 [Rx Last Taken Unknown] dicyclomine 20 mg tablet 20 mg PO TID PRN abdominal pain #30 tabs 08/04/23 [Rx Last Taken Unknown] ondansetron 4 mg disintegrating tablet 4 mg PO Q8H PRN PRN Nausea #20 tabs 08/04/23 [Rx Last Taken Unknown] promethazine 25 mg tablet 25 mg PO TID PRN nausea and vomiting #20 tabs 08/04/23 [Rx Last Taken Unknown] Allergy/AdvReac Type Severity Reaction Status Date / Time amoxicillin Allergy Nausea/Vom/ Verified 08/04/23 10:33 Diarrhea hydrocodone bitartrate Allergy Swelling Verified 08/04/23 10:33 [From Vicodin] metronidazole [From Flagyl] AdvReac Nausea Verified 08/04/23 10:33 morphine AdvReac Chest Verified 08/04/23 10:33 tightness Family History Mother Bladder cancer Hypertension Diabetes Alcoholism Arthritis Father Lung cancer with mets to the brain Alcoholism Grandfather Bowel disease Colon cancer Grandfather Lung cancer Grandmother No problems noted. Surgical History history ear drum replacement History of cholecystectomy History of colonoscopy History of tonsillectomy Social History Smoking Status: Never smoker second hand exposure: No alcohol intake: current alcohol intake frequency: holidays/special occasions only Alcohol type: beer and wine substance use type: does not use what type of physical activity do you participate in: none ROS ROS ED Constitutional Constitutional ED: Reports chills and fever(s); Denies sweats Eyes Eyes: Denies blurry vision or change in vision ENT ENT ED: Denies ear pain or sore throat Cardiovascular Cardiovascular: Denies chest pain, palpitations or racing heartbeat Respiratory/Chest Respiratory/Chest: Denies cough, dyspnea or sputum Gastrointestinal Gastrointestinal: Reports abdominal pain and nausea; Denies constipation, diarrhea or vomiting Genitourinary Genitourinary ED: Denies dysuria, hematuria or urinary frequency Musculoskeletal Musculoskeletal: Reports myalgias; Denies arthralgias or neck pain Integumentary Denies abscess, Abrasions or rash Neurologic Neurologic: Denies headache(s), paresthesias or weakness Psychiatric Psychiatric: Denies anxiety, depression, suicidal ideation or suicidal thoughts Endocrine Endocrinology: Denies polydipsia or polyuria EXAM Physical Exam Const Vital Signs: 08/04/23 10:31 08/04/23 12:59 08/04/23 14:33 Temperature 98.1 F Temperature Source Temporal Pulse Rate 69 68 Respiratory Rate 15 18 16 Blood Pressure 112/76 Blood Pressure Mean 88 Pulse Ox 100 98 Oxygen Delivery Method Room Air Room Air Positive well nourished General Appearance ED: NAD; Negative for pallor HEENT Reports moist mucous membranes normocephalic and atraumatic Eyes PERRL and EOMs intact bilaterally Neck no lymphadenopathy Resp normal respiratory effort Effort and Inspection: Negative for respiratory distress Cardio regular rate and regular rhythm GI Palpation: Negative for guarding, rigid, hepatomegaly, splenomegaly, hernia or mass Neuro CN's II-XII intact bilaterally Sensorium / Orientation: alert Psych mental status grossly normal Skin no wounds General Skin Exam: Negative for jaundice or pallor MDM MDM MDM Narrative Medical decision making narrative: Patient presenting with diffuse crampy abdominal pain, nausea, vomiting, diarrhea. This started about 18 hours ago. Differential includes colitis, diverticulitis, gastritis, pancreatitis, constipation, UTI, pyelonephritis, renal calculi, ureteral calculi, bowel obstruction, malignancy, dehydration, electrolyte abnormalities, , ectopic , ovarian cyst, ovarian torsion, COVID, influenza. Patient with no recent antibiotics to suggest C. difficile colitis. CBC obtained to assess white blood cell count, hemoglobin, platelets. CMP to assess liver function, renal function, electrolytes. Lipase to assess for pancreatitis. Urinalysis to assess for UTI. COVID/influenza swab will be obtained. Medicated with Zofran, Bentyl, Pepcid as she reports she has intolerance to morphine. Evaluation she still having some nausea she was given oral Phenergan which she tolerated is now feeling better. CT of the ab pelvis was obtained and is negative for acute pathology. Patient feeling somewhat better on examination but elevated baseline. After long discussion we will discharge patient home with Zofran, Phenergan, Bentyl. Return precautions discussed. Impression: 1. Nausea/vomiting 2. Diarrhea 3. Abdominal pain Lab Data Attestation: I reviewed the patient's lab results. Labs: Laboratory Results - last 24 hr 08/04/23 08/04/23 10:48 11:18 WBC 6.3 RBC 4.48 Hgb 13.7 Hct 38.8 MCV 86.6 MCH 30.6 MCHC 35.3 RDW Std Deviation 40.7 RDW Coeff of Tiesha 13.0 Plt Count 197 MPV 10.4 Immature Gran % (Auto) 0.200 Neut % (Auto) 47.4 Lymph % (Auto) 43.9 H Pepin % (Auto) 6.4 Eos % (Auto) 1.6 Baso % (Auto) 0.5 Absolute Neuts (auto) 3.0 Absolute Lymphs (auto) 2.75 Nucleated RBC % 0 Sodium 139 Potassium 4.0 Chloride 113 H Carbon Dioxide 21.0 Anion Gap 5 BUN 17 Creatinine 0.78 Estim Creat Clear Calc 99.53 Est GFR (MDRD) Af Amer 102 Est GFR (MDRD) Non-Af 84 BUN/Creatinine Ratio 21.7 H Glucose 99 Calcium 7.7 L Total Bilirubin 0.60 AST 14 L ALT 19 Alkaline Phosphatase 74 Total Protein 6.7 Albumin 2.9 L Globulin 3.8 Albumin/Globulin Ratio 0.8 L Lipase 44 Urine Color Yellow Urine Clarity Clear Urine pH 6.0 Ur Specific [place] 1.020 Urine Protein 15 H Urine Glucose (UA) Normal Urine Ketones Negative Urine Occult Blood Negative Urine Nitrite Negative Urine Bilirubin Negative Urine Urobilinogen 1 H Ur Leukocyte Esterase 25 H Urine RBC 0 SEEN Urine WBC 0-5 SEEN Ur Squamous Epith Cells 10-25 SEEN Urine Bacteria 1+ Urine Mucus 0 SEEN Radiography Diagnostic Testing: Clinical Impression(s) from Imaging Studies Abdomen/Pelvis CT 08/04/23 11:59 IMPRESSION: Fatty infiltration of the liver associated with hepatomegaly. Colonic diverticulosis. Hiatal hernia. Degenerative changes of the thoracic spine. Atherosclerosis. Electronically Signed: Rena Bustos MD at 12:33 EST , Discharge Plan Triage Chief Complaint: Nausea/Vomiting/Diarrhea ED Provider: Shaquille Kendrick Dx/Rx/DC Orders Instructions: ED Gastroenteritis, Viral (Adult) Prescriptions: New dicyclomine 20 mg tablet 20 mg PO TID PRN (Reason: abdominal pain) Qty: 30 0RF ondansetron 4 mg tablet,disintegrating 4 mg PO Q8H PRN PRN (Reason: Nausea) Qty: 20 0RF promethazine 25 mg tablet 25 mg PO TID PRN (Reason: nausea and vomiting) Qty: 20 0RF No Action oxybutynin chloride 5 mg tablet 5 mg PO QHS Qty: 60 1RF hydroxychloroquine 200 mg tablet 200 mg PO BIDCM Qty: 180 0RF cyclobenzaprine 10 mg tablet 10 mg PO TID PRN (Reason: muscle spasm) Qty: 60 1RF acyclovir [Zovirax] 5 % cream 1 applic topical ONCE Qty: 5 1RF Stand Alone Forms: ED Work / School Excuse Primary Care Provider: Kelli Ram Referrals: Kelli Ram MD [Primary Care Provider] - Disposition Disposition: Home, Self Care Discharge Date/Time: 08/04/23 14:34
[2023-08-04] MEDS: 0.9% Normal Saline (1000mL) 1,000 ML 1000 ML IV (10:52)
[2023-08-04] MEDS: Ondansetron 4 MG/2 ML Vial IV (10:52)
[2023-08-04] MEDS: Dicyclomine 20 MG/2 ML Vial IM (10:52)
[2023-08-04 11:02] LABS: Absolute Lymphocyte Count 2.75 X10^3/uL (0.83-4.51); Basophil# 0.03 X10^3/uL; Basophil% 0.5 % (0-1); Eosinophils% 1.6 % (0-5); Hematocrit 38.8 % (37-47); Hemoglobin 13.7 g/dL (12.0-15.0); Lymphocyte # 2.75 X10^3/ul (0.83-4.51); Lymphocyte % 43.9 % (19-41); Mean Corp Hgb Conc 35.3 g/dL (32-36); Mean Corpuscular Hgb 30.6 pg (27.0-32.0); Mean Corpuscular Volume 86.6 fL (81-99); Mean Platelet Vol. 10.4 fl (6.2-12.0); Monocyte% 6.4 % (0-10); NRBC Flagged by Analyzer 0 % (0-5); Neutrophil # 2.97 X10^3/uL (2.7-7.7); Neutrophil % 47.4 % (47-70); Platelet Count 197 K/mm3 (150-450); RBC Distribution Width SD 40.7 fl (35.1-43.9); Red Blood Count 4.48 M/mm3 (4.2-5.4); White Blood Count 6.3 K/mm3 (4.4-11.0)
[2023-08-04] MEDS: Famotidine 200 MG/20 ML MDV 20 MG in 0.9% Normal Saline (Pres. free 8 ML 300 MG IV (11:13)
[2023-08-04 11:19] LABS: ALB/GLOB Ratio 0.8 RATIO (0.9-2.4); AST(SGOT) 14 U/L (15-37); Alanine Aminotransfer ALT/SGPT 19 U/L (13-56); Albumin, Serum 2.9 g/dL (3.2-5.0); Alkaline Phosphatase 74 U/L (45-117); Anion Gap 5 (5-15); BUN 17 mg/dL (7-18); BUN/Creat Ratio 21.7 RATIO (10-20); Calcium,Total 7.7 mg/dL (8.5-10.1); Chloride 113 mmol/L (98-107); Creatinine, Serum 0.78 mg/dL (0.55-1.02); EST Glomerular Filtration Rate 84 mL/min (>60); Est Glom Filt Rate - Afr Amer 102 mL/min (>60); Estimated Creatinine Clearance 99.53 ml/min; Globulin 3.8 g/dL (2.2-4.2); Glucose 99 mg/dL (74-106); Lipase 44 U/L (13-75); Protein, Total 6.7 g/dL (6.4-8.2); Sodium Level 139 mmol/L (136-145)
[2023-08-04 11:26] LABS: Mucous, Urine 0 SEEN /hpf (<or=2+); Red Blood Cells-Urine 0 SEEN /hpf (0-5)
[2023-08-04 11:37] LABS: Color, Urine Yellow (Yellow); Glucose, Dipstick Normal (Normal); Ketone-Dipstick Negative (Negative); Leukocyte Esterase-Dipstick 25 /ul (Negative); Nitrite-Dipstick Negative (Negative); Occult Blood-Urine Negative /ul (Negative); Protein-Dipstick 15 mg/dl (Negative); Urine Bilirubin Dipstick Negative (Negative); Urine Clarity Clear (Clear); Urine Urobilinogen 1 mg/dl (Normal)
[2023-08-04 11:55] LABS: White Blood Cells 0-5 SEEN /hpf (0-5)
[2023-08-04 11:56] LABS: Bacteria 1+ /hpf (None Seen); Squamous Epithelial Cells - UA 10-25 SEEN /hpf (5-10)
--- NOTE | 2023-08-04 11:59 | CT_ITS ---
STUDY: CT ABDOMEN AND PELVIS WITH CONTRAST - URINARY TRACT REASON FOR EXAM: Female, 42 years old. Abdominal pain RADIATION DOSAGE (If Supplied By Facility): CTDIvol = ( 14.97 ) mGy, DLP = ( 1283.78 ) mGycm TECHNIQUE: IV 100mL [id number]-370 was administered. Transaxial images were obtained from the dome of the diaphragm to the symphysis pubis subsequent to intravenous contrast administration. Multiplanar coronal and sagittal images were reformatted. Individualized Dose Optimization Techniques Were Used For This CT. COMPARISON: September 27, 2020 FINDINGS: There are stable scattered cysts within the lower lungs. The visualized portions of the heart are within normal limits. There is decreased attenuation of the liver consistent with steatosis. There is hepatomegaly. There is non-visualization of the gallbladder, which may be secondary to either contraction or a prior cholecystectomy. Normal spleen. Normal pancreas. Normal bilateral adrenal glands. There is a small hiatal hernia. Normal small intestine. 3 The appendix is visualized and appears normal. There are peripheral calcifications of the abdominal aorta. There is a stable prominent aortocaval lymph node. Normal right kidney. Normal left kidney. Normal urinary bladder. There is minimal free fluid within the pelvis which may be physiologic. Normal abdominal wall. There are diffuse degenerative changes of the visualized lumbar spine. CT/Abdomen/Pelvis W IV Cont ONLY IMPRESSION: Fatty infiltration of the liver associated with hepatomegaly. Colonic diverticulosis. Hiatal hernia. Degenerative changes of the thoracic spine. Atherosclerosis. Electronically Signed: Rena Bustos MD at 12:33 EST ,
[2023-08-04] MEDS: Ketorolac 15 MG/ML Vial IV (12:03)
[2023-08-04 12:59] VITALS: PULSE 68; RESP 18; O2SAT 98
[2023-08-04] MEDS: proMETHazine 25 MG Tablet PO (13:27)
[2023-08-04 14:33] VITALS: RESP 16
== END 2023-08-04 14:34 | disposition home or self-care (01) ==
PROVIDERS: Emergency Provider Student in an Organized Health Care Education/Training Program; PCP Internal Medicine; Referring Provider Student in an Organized Health Care Education/Training Program; Visit Provider Student in an Organized Health Care Education/Training Program
DX: R11.2 Nausea with vomiting, unspecified (principal); R10.9 Unspecified abdominal pain; R19.7 Diarrhea, unspecified; Z87.19 Personal history of other diseases of the digestive system; J45.909 Unspecified asthma, uncomplicated
CPT/HCPCS: 74177; 80053; 81001; 83690; 85025; 87428; 96361; 96372; 96374; 96375; 99283; J7030; Q9967; A4216; J2405; J3490

== ENCOUNTER → 2023-08-07 | Outpatient (CLI) | payer MEDICAID, SELFPAY | END | disposition home or self-care (01) | LOC: LABSPEC 10:17 | PROVIDERS: PCP Internal Medicine; Referring Provider Internal Medicine; Visit Provider Internal Medicine | DX: B34.9 Viral infection, unspecified (principal) | CPT/HCPCS: 87635 ==

== ENCOUNTER 2023-10-05 21:59 | Emergency (ER) | payer MEDICAID, SELFPAY ==
[2023-10-05 22:00] VITALS: BP 126/88; PULSE 86; RESP 18; TEMP 36.4; O2SAT 99; BMI 35.2
--- NOTE | 2023-10-05 22:25 | EX.ED.DYSGE1 ---
HPI History of Present Illness Chief Complaint: Rash Informant: patient Narrative Narrative: Patient presents with a rash. Patient states that about 3 this morning she woke up. She had a rash that kind of itches and keita. It moves to different areas of the body. It will come and go. She does have a history of lupus and is on Plaquenil but no other meds. It is not new or different dose different tablet shape or color. No new exposures or foods she can think of. She has had problems with this in the past. She tried some Claritin which may be helped a little bit but it still itches and keita. She is not short of breath. No swelling of her mouth or tongue. [facility] Medical History (Updated 10/05/23 @ 22:[address] Scott Graham MD) Allergic rhinitis Anemia Asthma Back pain Bronchitis Chest pain Depression Fatty liver GERD (gastroesophageal reflux disease) Hearing problem Hiatal hernia Hypersomnia IBS (irritable bowel syndrome) Interstitial lung disease Lupus OAB (overactive bladder) Obesity (BMI 30-39.9) Pleurisy Pulmonary fibrosis Pulmonary nodule Recurrent cold sores Rheumatoid arthritis Sleep apnea Urinary incontinence Vascular disease Home Medications hydroxychloroquine 200 mg tablet 200 mg PO BIDCM #180 tabs 06/04/23 [Rx Last Taken Unknown] oxybutynin chloride 5 mg tablet 5 mg PO QHS #60 tabs 06/04/23 [Rx Last Taken Unknown] clindamycin phosphate 2 % vaginal cream 1 appful vaginal DAILY PRN 10/05/23 [History Last Taken Unknown] diphenhydramine HCl 25 mg capsule (Benadryl) 25 mg PO TID PRN allergic reaction #15 caps 10/05/23 [Rx Last Taken Unknown] famotidine 20 mg tablet (Pepcid) 20 mg PO DAILY #5 tabs 10/05/23 [Rx Last Taken Unknown] prednisone 20 mg tablet 60 mg (3 x 20 mg) PO DAILY #15 TABLETS 10/05/23 [Rx Last Taken Unknown] Allergy/AdvReac Type Severity Reaction Status Date / Time amoxicillin Allergy Nausea/Vom/ Verified 10/05/23 22:00 Diarrhea hydrocodone bitartrate Allergy Swelling Verified 10/05/23 22:00 [From Vicodin] metronidazole [From Flagyl] AdvReac Nausea Verified 10/05/23 22:00 morphine AdvReac Chest Verified 10/05/23 22:00 tightness Family History Mother Bladder cancer Hypertension Diabetes Alcoholism Arthritis Father Lung cancer with mets to the brain Alcoholism Grandfather Bowel disease Colon cancer Grandfather Lung cancer Grandmother No problems noted. Surgical History history ear drum replacement History of cholecystectomy History of colonoscopy History of tonsillectomy Social History Smoking Status: Never smoker second hand exposure: No alcohol intake: current alcohol intake frequency: holidays/special occasions only Alcohol type: beer and wine substance use type: does not use what type of physical activity do you participate in: none ROS ROS ED ROS Narrative A complete review of systems was performed and is negative except as documented in the history of present illness. Some specific details below. Constitutional: No recent fevers or chills. She does not feel ill. EYE: No discharge, visual complaints, or pain. ENT: No difficulty swallowing. No swelling of tongue or lips. No pain. CV: No chest pain or palpitations. No syncope Respiratory: No cough wheezing or trouble breathing. GI: No abdominal pain. No nausea vomiting diarrhea. No blood in stool. : No frequency dysuria or hematuria. Musculoskeletal: No recent trauma. No pains. No swelling. Skin: Patient does have red raised areas that sort of itch and burn. They come and go. They do tend to occur on both sides of her body. Neuro: No weakness or numbness. Endocrine: No polyuria or polydipsia. EXAM Physical Exam Narrative Exam Narrative: CONSTITUTIONAL: Patient is nontoxic in appearance. The patient looks comfortable. Work of breathing looks normal. HEENT: No notable trauma. Mucous membranes moist. No swelling of lips or tongue or posterior pharynx. Speech is normal. Handling secretions normally. EYES: No conjunctival injection. No swollen lids. NECK:No JVD. No stridor. CARDIOVASCULAR: Regular rate. Regular rhythm. No notable murmur. No JVD. RESPIRATORY: No respiratory distress. Breathing is unlabored. No wheezes. Saturations are normal at 99% on room air showing no hypoxia. GASTROINTESTINAL: Not distended. Bowel sounds are normal. No tenderness. GENITOURINARY: No tenderness over the bladder. No CVA tenderness. MUSCULOSKELETAL: Atraumatic. No tenderness NEUROLOGICAL: Patient is alert and appropriate. No focal deficit noted. SKIN: Patient does have hives on the top of both feet. A little bit on the dorsum of the hands. There is a couple spots on her flank. It does tend to be match [id number]. I use the back of the finger on her back. This did produce a little bit of graphesthesia. These lesions are raised and red consistent with hives. They do christi. There is no vesicles. There are no petechiae no purpura. It sounds like she may have had allergic vasculitis in the past but there is no indication of a vasculitic component at this time. PSYCHIATRIC: Patient is calm. Mood is appropriate. Const Vital Signs: 10/05/23 22:00 Temperature 97.6 F L Temperature Source Temporal Pulse Rate 86 Respiratory Rate 18 Blood Pressure 126/88 H Blood Pressure Mean 100 Pulse Ox 99 Oxygen Delivery Method Room Air MDM MDM MDM Narrative Medical decision making narrative: Patient states she has had this and has responded to steroids. I will give her some prednisone. Will use Benadryl rather than hydroxyzine because she is on Plaquenil. I we will use Pepcid which she is also used. We discussed reasons to return. Discharge Plan Triage Chief Complaint: Rash ED Provider: Scott Graham Dx/Rx/DC Orders Clinical Impression: Hives Instructions: ED Hives (Adult) Prescriptions: New prednisone 20 mg tablet 60 mg PO DAILY Qty: 15 0RF famotidine [Pepcid] 20 mg tablet 20 mg PO DAILY Qty: 5 0RF diphenhydramine HCl [Benadryl] 25 mg capsule 25 mg PO TID PRN (Reason: allergic reaction) Qty: 15 0RF No Action oxybutynin chloride 5 mg tablet 5 mg PO QHS Qty: 60 1RF hydroxychloroquine 200 mg tablet 200 mg PO BIDCM Qty: 180 0RF clindamycin phosphate 2 % cream 1 appful VAGINAL DAILY PRN Primary Care Provider: Kelli Ram Referrals: Kelli Ram MD [Primary Care Provider] - 3-5 Days if not improving Disposition Disposition: Home, Self Care
--- OUTSIDE RECORDS SUMMARY | 2023-10-05 22:34 | XMS RPT_ITS | CCD ---
Author Name Unknown Address [address] [place] [address] Organization [facility] Care Team Providers Care Pediatric Associate Name Role Phone Yensho LEAD ENTERPRISE ARCHITECT, Katie A Unavailable Unavailab le Marino Gore DO Unavailable Yensho LEAD ENTERPRISE ARCHITECT, Katie A Unavailable Unavailab le Yensho LEAD ENTERPRISE ARCHITECT, Katie A Unavailable Unavailab le Yensho LEAD ENTERPRISE ARCHITECT, Katie A Unavailable Unavailab le Yensho LEAD ENTERPRISE ARCHITECT, Katie A Unavailable Unavailab le Yensho LEAD ENTERPRISE ARCHITECT, Katie A Unavailable Unavailab le Yensho LEAD ENTERPRISE ARCHITECT, Katie A Unavailable Unavailab le Yensho LEAD ENTERPRISE ARCHITECT, Katie A Unavailable Unavailab le Yensho LEAD ENTERPRISE ARCHITECT, Katie A Unavailable Unavailab le Barriga LEAD ENTERPRISE ARCHITECTPia Unavailable Unavaila ble KUCHYNSKI, JAYCEE Unavailable Unavailable MELGOZA, DEMARCO Unavailable Unavailable KUCHYNSKI, JAYCEE Unavailable Unavailable Yensho LEAD ENTERPRISE ARCHITECT, Katie A Unavailable Unavailab le Yensho LEAD ENTERPRISE ARCHITECT, Katie A Unavailable Unavailab Pia Rangel Unavailable Unavailable VALENTÍN GARCÍA Unavailable Unavailable RICKYVALENTÍN TERRY Unavailable Unavailable Yensho LEAD ENTERPRISE ARCHITECT, Katie A Unavailable Unavailab le Yensho LEAD ENTERPRISE ARCHITECT, Katie A Unavailable Unavailab mike Ram MD, Kelli Lambert Primary Care Provider BARBIE FISHER Attending Unavailable KELLI RAM Primary Care Unavailable SHERITA RAMBE Petra Primary Care Unavailable PAULYPETRA Orr Referring Unavailable KELLI RAM Primary Care Unavailable PAULYPETRA Orr Attending Unavailable KELLI RAM Primary Care Unavailable PAULY, PETRA Attending Unavailable Allergies Allergy Classification Reported Allergen(s) Allergy Type Date of Onset Reaction(s) Facility (16 sources) acetaminophen / HYDROcodone drug allergy 7 lips and toungue sswelling [facility] Work Phone: (20 sources) amoxicillin; Translations: [AMOXICILLIN] drug allergy 2 GI Upset [facility] Work Phone: (16 sources) metroNIDAZOLE drug allergy 7 GI upset [facility] Work Phone: (16 sources) morphine drug allergy 7 cough, tightness in chest [facility] Work Phone: (4 sources) Acetaminophen / HYDROcodone; Translations: [HYDROCODONE-ACET AMINOPHEN] Drug Allergy 6 Swelling [facility] Repository (4 sources) Banana Extract; Translations: [BANANA] Drug Allergy 9 Intolerance [facility] Repository (4 sources) metroNIDAZOLE; Translations: [METRONIDAZOLE HCL] Drug Allergy 2 Swelling [facility] Repository (4 sources) Morphine; Translations: [MORPHINE] Drug Allergy 8 Shortness of Breath [facility] Repository (4 sources) Pollen; Translations: [POLLEN] Propensity to adverse reactions (disorder) 6 [facility] Repository (4 sources) ANIMAL DANDER; Translations: [ANIMAL DANDER] Propensity to adverse reactions to drug (disorder) 6 [facility] Repository (2 sources) OTHER; Translations: [OTHER] Propensity to adverse reactions (disorder) 9 AOF [facility] Repository (2 sources) cod fish [Other] Propensity to adverse reactions 9 Intolerance [facility] Work Phone: Medications Current Medications Medication Drug Class(es) Dates Sig (Normalized) Sig (Original) cyclobenzaprine hydrochloride 10 mg oral tablet (1 source) Muscle Relaxant Start: 12-12-2022 End: 12-22-2022 take 1 tablet by mouth three times daily cyclobenzaprine (FLEXERIL) 10 mg tablet Take 1 tablet by mouth three times daily for 10 days. 30 tablet 0 12/12/2022 12/22/2022 Active Completed/Discontinued Medications Medication Drug Class(es) Dates Sig (Normalized) Sig (Original) acetaminophen 325 mg / oxyCODONE hydrochloride 5 mg oral tablet (16 sources) Opioid Agonist Start: 01-16-2017 take 1-2 tablets by mouth every four to six hours as needed PERCOCET 5-325 MG TABS 1-2 tab po q4-6h as needed OXYCODONE-ACETAMIN OPHEN [id number] Pia Mcdonald Linus LEAD ENTERPRISE ARCHITECT Problems Active Problems Problem Classification Problem Date Documented Date Episodic/Chronic Anxiety disorders (2 sources) Mixed anxiety and depressive disorder; Translations: [Other specified anxiety disorders] Onset: 07-29-2012 08-29-2021 Chronic Asthma (20 sources) Asthma; Translations: [Exacerbation of asthma] Onset: 07-29-2012 01-16-2017 Chronic Esophageal disorders (2 sources) Gastroesophageal reflux disease; Translations: [Gastro-esophageal reflux disease without esophagitis] Onset: 06-07-2012 08-29-2021 Chronic Headache; including migraine (2 sources) Migraine without aura; Translations: [Migraine without aura, not intractable, without status migrainosus] Onset: 02-09-2006 Chronic Other inflammatory condition of skin (18 sources) Lupus erythematosus; Translations: [Discoid lupus erythematosus] Onset: 09-26-2005 01-16-2017 Chronic Other liver diseases (2 sources) Chronic nonalcoholic liver disease; Translations: [Other specified diseases of liver] Onset: 09-26-2005 09-26-2005 Chronic Other lower respiratory disease (2 sources) Post-inflammatory pulmonary fibrosis; Translations: [Pulmonary fibrosis, unspecified] Onset: 10-12-2006 10-12-2006 Chronic Other screening for suspected conditions (not mental disorders or infectious disease) (1 source) Cancer cervix screening status; Translations: [Encounter for screening for malignant neoplasm of cervix] 03-30-2023 Episodic Other upper respiratory disease (16 sources) Allergic rhinitis; Translations: [Allergic rhinitis, unspecified] Onset: 01-16-2017 01-16-2017 Chronic Systemic lupus erythematosus and connective tissue disorders (4 sources) Mucous membrane dryness; Translations: [Sicca syndrome, unspecified] Onset: 06-27-2006 08-29-2021 Chronic Unclassified (1 source) SUMMARY Onset: 06-07-2012 Unclassified (2 sources) Abnormal cytology findings; Translations: [ASCUS (atypical squamous cells of undetermined significance) on Pap smear] Onset: 07-03-2012 07-03-2012 Past or Other Problems Problem Classification Problem Date Documented Da te Episodic/Chronic Abdominal pain (6 sources) Unspecified abdominal pain; Translations: [Vaginal pain] Onset: 09-26-2005 Episodic Acute and unspecified renal failure (1 source) Acute injury of kidney; Translations: [Acute kidney failure, unspecified] Onset: 07-30-2012 08-29-2021 Episodic Allergic reactions (2 sources) Idiopathic urticaria; Translations: [Idiopathic urticaria] Onset: 09-26-2005 09-26-2005 Episodic Deficiency and other anemia (2 sources) Anemia; Translations: [Anemia, unspecified] Onset: 09-26-2005 Episodic Immunizations and screening for infectious disease (4 sources) Patient encounter status; Translations: [Encounter for screening for human papillomavirus (HPV)] Onset: 03-30-2023 03-30-2023 Episodic Nonspecific chest pain (1 source) Chest discomfort; Translations: [Other chest pain] Onset: 02-07-2012 02-07-2012 Episodic Other gastrointestinal disorders (2 sources) Diarrhea; Translations: [Diarrhea, unspecified] Onset: 06-07-2012 Episodic Other inflammatory condition of skin (2 sources) Urticarial vasculitis; 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] Onset: 07-29-2012 08-29-2021 Episodic Other lower respiratory disease (20 sources) Dyspnea; Translations: [Interstitial lung disease] Onset: 01-16-2017 01-16-2017 Episodic Other lower respiratory disease (5 sources) Interstitial lung disease; Translations: [Interstitial pulmonary disease, unspecified] Onset: 01-16-2017 01-16-2017 Episodic Other skin disorders (2 sources) Eruption; Translations: [Rash and other nonspecific skin eruption] Onset: 06-07-2012 08-29-2021 Episodic Other skin disorders (1 source) Excoriated acne; Translations: [Acne excoriee] Onset: 06-26-2012 Episodic Residual codes; unclassified (2 sources) At risk of coronary heart disease ; Translations: [Other specified personal risk factors, not elsewhere classified] Onset: 02-07-2012 02-07-2012 Episodic Skin and subcutaneous tissue infections (1 source) Abscess of hip; Translations: [Cutaneous abscess of left lower limb] Onset: 07-29-2012 08-29-2021 Episodic Unclassified (4 sources) Hypersomnia; Translations: [Hypersomnia, unspecified] Onset: 06-13-2017 06-13-2017 Episodic Urinary tract infections (1 source) Lower urinary tract infectious disease; Translations: [Urinary tract infection, site not specified] Onset: 07-29-2012 08-29-2021 Episodic Results Test Name Value Interpretation Reference Range Facil ity Vital Signs Date Time Vital Sign Value Performing Clinician Macie lity 03-30-2023 13:13-0400 Body weight 111.58 kg Petra Pauly SUPERVISOR AUDIT CLERKS.[employer] Work Phone: [facility] 03-30-2023 13:13-0400 Diastolic blood pressure 68 mm[Hg] Petra Pauly SUPERVISOR AUDIT CLERKS.[employer] OPERATOR Work Phone: [facility] 03-30-2023 13:13-0400 Systolic blood pressure 106 mm[Hg] Petra Sonora SUPERVISOR AUDIT CLERKS.[employer] OPERATOR Work Phone: [facility] 12-12-2022 08:00-0400 Body weight 111.31 kg Petra Sonora SUPERVISOR AUDIT CLERKS.[employer] OPERATOR Work Phone: [facility] 12-12-2022 08:00-0400 Diastolic blood pressure 70 mm[Hg] Petra Pauly SUPERVISOR AUDIT CLERKS.[employer]PER[employer] Work Phone: [facility] 12-12-2022 08:00-0400 Systolic blood pressure 100 mm[Hg] Petra Sonora SUPERVISOR AUDIT CLERKS.[employer]PER[employer] Work Phone: [facility] 06-13-2017 05:58-0400 BMI (Body Mass Index) 36.18 kg/m2 Katie Eden LPN [facility] Work Phone: 06-13-2017 05:58-0400 Body Temperature 97.4 [degF] Katie Eden LPN [facility] Work Phone: 06-13-2017 05:58-0400 BP Diastolic 83 mm[Hg] Katie Yensho LEAD ENTERPRISE ARCHITECT [facility] Work Phone: 06-13-2017 05:58-0400 BP Systolic 113 mm[Hg] Katie Yensho LEAD ENTERPRISE ARCHITECT [facility] Work Phone: 06-13-2017 05:58-0400 Height 175.26 cm Katie Yensho LEAD ENTERPRISE ARCHITECT [facility] Work Phone: 06-13-2017 05:58-0400 Pulse (Heart Rate) 63 /min Katie Yensho LEAD ENTERPRISE ARCHITECT [facility] Work Phone: 06-13-2017 05:58-0400 Respiratory Rate 18 /min Katie Yensho LEAD ENTERPRISE ARCHITECT [facility] Work Phone: 06-13-2017 05:58-0400 Weight 111.13 kg Katie Yensho LEAD ENTERPRISE ARCHITECT [facility] Work Phone: 06-05-2017 06:45-0400 BMI (Body Mass Index) 36.03 kg/m2 Pia Barriga LEAD ENTERPRISE ARCHITECT [facility] Work Phone: 06-05-2017 06:45-0400 Body Temperature 97.6 [degF] Pia Barriga LEAD ENTERPRISE ARCHITECT [facility] Work Phone: 06-05-2017 06:45-0400 BP Diastolic 78 mm[Hg] Pia Barriga LEAD ENTERPRISE ARCHITECT [facility] Work Phone: 06-05-2017 06:45-0400 BP Systolic 116 mm[Hg] Pia Barriga LEAD ENTERPRISE ARCHITECT [facility] Work Phone: 06-05-2017 06:45-0400 Height 175.26 cm Pia Barriga LEAD ENTERPRISE ARCHITECT [facility] Work Phone: 06-05-2017 06:45-0400 Pulse (Heart Rate) 65 /min Pia Barriga LEAD ENTERPRISE ARCHITECT [facility] Work Phone: 06-05-2017 06:45-0400 Respiratory Rate 18 /min Pia Barriga LEAD ENTERPRISE ARCHITECT [facility] Work Phone: 06-05-2017 06:45-0400 Weight 110.68 kg Pia Barriga LEAD ENTERPRISE ARCHITECT [facility] Work Phone: 02-28-2017 12:42-0400 BMI (Body Mass Index) 35.73 kg/m2 Katie Yensho LEAD ENTERPRISE ARCHITECT [facility] Work Phone: 02-28-2017 12:42-0400 Body Temperature 97.9 [degF] Katie Yensho LEAD ENTERPRISE ARCHITECT [facility] Work Phone: 02-28-2017 12:42-0400 BP Diastolic 74 mm[Hg] Ktaie Yensho LEAD ENTERPRISE ARCHITECT [facility] Work Phone: 02-28-2017 12:42-0400 BP Systolic 110 mm[Hg] Katie Yensho LEAD ENTERPRISE ARCHITECT [facility] Work Phone: 02-28-2017 12:42-0400 Height 175.26 cm Katie Yensho LEAD ENTERPRISE ARCHITECT [facility] Work Phone: 02-28-2017 12:42-0400 Pulse (Heart Rate) 70 /min Katie Yensho LEAD ENTERPRISE ARCHITECT [facility] Work Phone: 02-28-2017 12:42-0400 Pulse Oximetry 97 % Katie Yensho LEAD ENTERPRISE ARCHITECT [facility] Work Phone: 02-28-2017 12:42-0400 Respiratory Rate 18 /min Katie Yensho LEAD ENTERPRISE ARCHITECT [facility] Work Phone: 02-28-2017 12:42-0400 Weight 109.77 kg Katie Yensho LEAD ENTERPRISE ARCHITECT [facility] Work Phone: 01-16-2017 07:21-0400 BMI (Body Mass Index) 35.88 kg/m2 Katie Yensho LEAD ENTERPRISE ARCHITECT [facility] Work Phone: 01-16-2017 07:21-0400 Body Temperature 96.8 [degF] Katie Yensho LEAD ENTERPRISE ARCHITECT [facility] Work Phone: 01-16-2017 07:21-0400 Body weight 110.22 kg Katie Yensho LEAD ENTERPRISE ARCHITECT [facility] Work Phone: 01-16-2017 07:21-0400 BP Diastolic 76 mm[Hg] Katie Yensho LEAD ENTERPRISE ARCHITECT [facility] Work Phone: 01-16-2017 07:21-0400 BP Systolic 113 mm[Hg] Katie Yensho LEAD ENTERPRISE ARCHITECT [facility] Work Phone: 01-16-2017 07:21-0400 Height 175.26 cm Katie Yensho LEAD ENTERPRISE ARCHITECT [facility] Work Phone: 01-16-2017 07:21-0400 Pulse (Heart Rate) 59 /min Katie Yensho LEAD ENTERPRISE ARCHITECT [facility] Work Phone: 01-16-2017 07:21-0400 Pulse Oximetry 98 % Katie Yensho LEAD ENTERPRISE ARCHITECT [facility] Work Phone: 01-16-2017 07:21-0400 Respiratory Rate 18 /min Katie Yensho LEAD ENTERPRISE ARCHITECT [facility] Work Phone: 01-16-2017 07:21-0400 Weight 110.22 kg Katie Yensho LEAD ENTERPRISE ARCHITECT [facility] Work Phone: Encounters Encounter Date Encounter Type Care Provider Facility Start: 10-01-2023 ambulatory BARBIE Moreau y:[facility] Start: 03-30-2023 End: 03-31-2023 ambulatory KELLI RAM Facility:[facility] Start: 03-30-2023 End: 03-30-2023 Patient encounter procedure Petra Coats SUPERVISOR AUDIT CLERKS.WE[employer]OW OPERATOR Work Phone: OB/Gynecology Procedures Date Procedure Procedure Detail Performing Clinician Start: 12-12-2022 Urnls dip stick/tabl et rgnt auto w/o microscopy Petra Sonora SUPERVISOR AUDIT CLERKS.[employer] OPERATOR Work Phone: Start: 08-19-2018 [facility]VIS[facility] AUDIT CLERKS.[employer] OPERATOR Work Phone: Start: 02-28-2017 End: 03-01-2017 IgE [Mass/volume] in Serum Marinoangela Gore DO Work Phone: Start: 02-28-2017 End: 03-01-2017 Globulin Marino Clinton Bao DO Work Phone: Start: 01-16-2017 End: 01-22-2017 *[id number] Allergens,[id number] Marino Gore DO Work Phone: Start: 01-16-2017 End: 01-16-2017 Demo&/eval of pt utiliz aersl gen/neb/inhlr/ip Marino Gore DO Work Phone: Start: 01-16-2017 End: 01-16-2017 Documentation of current medications Katie Eden LPN Start: 01-16-2017 End: 01-22-2017 *[email or web address] Allergens,[id number] Marino Gore DO Work Phone: Start: 01-16-2017 End: 01-16-2017 Evaluate pt use of inhaler Marinoangela Gore DO Work Phone: Plan of Treatment Date Care Activity Detail Author Start: 08-19-2028 Colonoscopy COLONOSCOPY [facility] Start: 08-19-2028 COLORECTAL CANCER SCREENING COLORECTAL CANCER SCREENING [facility] Start: 05-04-2023 Influenza vaccination C [facility] Start: 03-30-2023 End: 05-30-2023 Hepatitis B virus surface Ag [Presence] in Serum [facility] Work Phone: Immunizations Immunization Date Immunization Notes Care Provider Miguel regan 06-11-2013 influenza virus vacc ine, unspecified formulation Petra Sonora SUPERVISOR AUDIT CLERKS.[employer] OPERATOR Work Phone: [facility] 05-28-2012 influenza virus vacc ine, whole virus Petra Sonora SUPERVISOR AUDIT CLERKS.[employer] OPERATOR Work Phone: [facility] 05-22-2011 influenza virus vacc ine, whole virus Petra Pauly SUPERVISOR AUDIT CLERKS.[employer] OPERATOR Work Phone: [facility] Work Phone: 05-22-2011 pneumococcal polysaccharide vaccine, 23 valent Petra Sonora SUPERVISOR AUDIT CLERKS.[facility] Work Phone: [facility] Work Phone: 06-27-2006 influenza virus vacc ine, unspecified formulation Petra Pauly SUPERVISOR AUDIT CLERKS.[facility] Work Phone: [facility] Work Phone: Payers Date Payer Category Payer Medicaid [employer] [facility] MEDICAID [id number] 2022-Present [phone] [address] [place] [address] Medicaid [id number] 2022 Medicaid [id number] Social History Date Type Detail Facility Start: 12-12-2022 Tobacco smoking stat us [facility] Never smoked tobacco [facility] Work Phone: Start: 12-12-2022 Tobacco use and exposure Smokeless tobacco non-user [facility] Work Phone: Start: 12-12-2022 End: 03-30-2023 Alcohol intake Current non-drinker of alcohol (finding) [facility] Start: 1980 Sex Assigned At Not on file [facility] Start: 03-30-2023 History of Social function [facility] Start: 03-30-2023 Tobacco use panel [facility] National Score (1-100), lower number is lower risk 75 [facility] Progress note 10-01-2023 Note Date & Type Note Facility 10-01-2023 Note HNO ID: [id number] Author: BARBIE FISHER MD Service: ? Author Type: Physician Type: Progress Notes Filed: 10/01/2023 11:16 Note Text: Sully Thomas is a 43 year old female who presents for vaginal pruritis and discharge for 14 days refractory to monistat. Vaginal discharge: moderate amount, thin, white, and no odor. Itching: No Dyspareunia: No Fever/chills: No Abdominal pain: No Bladder: Negative for dysuria or frequency, incontinence Bowel: No blood in stool, pain with BM, tarry stool, persistent diarrhea or constipation Any new sexual partners or concern for STD exposure: No Any history of STDs: None Does your partner have any new complaints: No Are you currently taking any medications to treat vaginitis: No Do you use feminine sprays, douches or deodorants: No Menstrual cycle: cycles every 28 days and 4 days of flow Contraception: natural family planning Last pap: 2022, + HPV Past medical, surgical, social history, medications and allergies reviewed and updated. OBJECTIVE: Wt 244 lb (110.7kg) LMP 09/07/2023 GENERAL: Well developed, well nourished in no apparent distress ABDOMEN: soft, non-tender, and no masses PELVIC: external genitalia normal, normal Bartholin's glands, urethra, [place]'s glands, no vulvar lesions, no cervical lesions, good vaginal support, physiologic discharge present, normal appearing perineal body and perianal region BIMANUAL: uterus normal size, shape and consistency, no adnexal masses, and non-tender. RECTOVAGINAL: deferred. Wet prep/LUOIS: whiff: Negative ASSESSMENT/PLAN: leukorrhea Office Visit on 10/01/23 oxybutynin (DITROPAN) 5 mg tablet hydrOXYchloroQUINE (PLAQUENIL) 200 mg tablet STD screening: Declined STD check. Any new medications given to the patient have been explained as to directions, reasons for prescribing and side effects. Perineal hygiene and safe sex were discussed with the patient. Barbie Fisher MD [facility] Progress note 03-30-2023 Note Date & Type Note Facility 03-30-2023 Note HNO ID: [id number] Author: Petra Coats APRN.WELL FLOW OPERATOR Service: ? Author Type: Nurse Practitioner Type: Progress Notes Filed: 03/30/2023 1:45 PM Note Text: Press Helper offered: Patient declines. Sully is a 42 year old who presents for an annual gynecologic exam without complaints. Menses: cycles every 25-30 days and 3-5 days of flow. Contraception: none HPV vaccine: No Last Pap: HPV: History of abnormal pap: Yes Last mammogram: never Sexually active: Yes History of STDS: chlamydia, HPV, and trichomonas Patient concerns for STD exposure: No. Pain with intercourse: No Postcoital bleeding: No OB History T2 L2 SAB0 IAB0 Ectopic0 Multiple0 Live Births0 Hair Dryer History LMP: 03/16/2023 (Within Days), Having periods Age at Menarche: Age at First : Age at Menopause: Hair Dryer History Comments: Sexual Activity: Yes; Male Contraception: No contraception data on record PAST MEDICAL HISTORY Diagnosis Date Abdominal pain, unspecified site 09/26/2005 Anemia, unspecified Asthma Bowel disease gerd Chronic obstructive pulmonary disease (COPD) (HCC) Cocaine abuse, in remission (HCC) Esophageal reflux Gastroesophageal reflux Fracture r wrist Idiopathic urticaria 09/26/2005 Lupus (HCC) Other specified gastritis Bile reflux gastritis Peripheral vascular disease (HCC) 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 Sicca syndrome (HCC) 06/27/2006 Vomiting 06/20/2012 PAST SURGICAL HISTORY Procedure Laterality Date CHOLECYSTECTOMY 08/2005 COLONOSCOPY FLX DX W/COLLJ SPEC WHEN PFRMD 08/19/2018 Colonoscopy DILATION CERVICAL CANAL INSTRUMENTAL SPX 2001 d AND c (miscarriage) ESOPHAGOGASTRODUODENOSCOPY TRANSORAL DIAGNOSTIC 11/2004 EGD ESOPHAGOGASTRODUODENOSCOPY TRANSORAL DIAGNOSTIC 08/19/2018 EGD PAST SURGICAL HISTORY OF cone biopsy PAST SURGICAL HISTORY OF Right 2010 orif wrist PICC LINE INSERT/CONSULT 06/25/2012 TONSILLECTOMY PRIMARY/SECONDARY Tonsillectomy FAMILY HISTORY Problem Relation Age of Onset Hypertension Mother Diabetes Mother Cancer Mother bladder Cancer Father lung Stroke Maternal Grandmother Cancer Maternal Grandfather Cancer Paternal Grandfather SOCIAL HISTORY Social History Tobacco Use Smoking status: Never Smokeless tobacco: Never Vaping Use Vaping Use: Never used Substance Use Topics Alcohol use: No Comment: 1 drink per month Drug use: No Comment: history of crack addiction REVIEW OF SYSTEMS Abdomen: No abdominal pain, nausea, vomiting, diarrhea, or constipation. No bloating, early satiety, indigestion, or increased flatulence. Bladder: No gross hematuria, urinary frequency, urinary urgency, or incontinence.+dysuria Breast: No breast lumps, nipple d/c, overlying skin changes, redness or skin retraction. Allergies and current medication updated:Yes EXAM: BP 106/68 Wt 246 lb (111.6kg) LMP 03/16/2023 GENERAL: pleasant, female in no apparent distress HEENT: Normocephalic, atraumatic, mucus membranes moist, and no lesions NECK: Supple, full range of motion, no adenopathy, and thyroid normal DERMATOLOGY: Normal, without lesions, non-icteric, and non-hirsute BREAST: soft, non-tender, symmetric, no dominant mass, normal nipple-areolar complex, no lymphadenopathy, and no nipple discharge CHEST: Normal inspiratory effort ABDOMEN: soft, non-tender, and no masses PELVIC: external genitalia normal, normal Bartholin's glands, urethra, [place]'s glands, no vulvar lesions, no cervical lesions, physiologic discharge present, normal appearing perineal body and perianal region BIMANUAL: uterus normal size, shape and consistency, no adnexal masses, and non-tender RECTOVAGINAL: deferred. NEURO: alert and oriented x3,exam grossly non-focal EXTREMITIES: normal ASSESSMENT/PLAN: 1) Health maintenance: Pap done with HPV. Mammogram ordered. Nutrition, exercise and routine health maintenance exams reviewed. Calcium/Vitamin D supplementation information provided. 2) Contraception: none. Contraceptive options reviewed and information provided. 3) STD screening: Accepts full STD screeening including HIV, Syphilis and Hepatitis. 4) Follow up one year or sooner as needed Petra Coats APRN.[facility] History of Present illness Narrative 03-30-2023 Petra Coats APRN.[facility] - 03/30/2023 1:09 PM EDT Note Date & Type Note Facility 03-30-2023 History of Presen t illness Narrative Press Helper offered: Patient declines. Sully is a 42 year old who presents for an annual gynecologic exam without complaints. Menses: cycles every 25-30 days and 3-5 days of flow. Contraception: none HPV vaccine: No Last Pap: HPV: History of abnormal pap: Yes Last mammogram: never Sexually active: Yes History of STDS: chlamydia, HPV, and trichomonas Patient concerns for STD exposure: No. Pain with intercourse: No Postcoital bleeding: No OB History T2 L2 SAB0 IAB0 Ectopic0 Multiple0 Live Births0 Hair Dryer History LMP: 03/16/2023 (Within Days), Having periods Age at Menarche: Age at First : Age at Menopause: Hair Dryer History Comments: Sexual Activity: Yes; Male Contraception: No contraception data on record PAST MEDICAL HISTORY Diagnosis Date Abdominal pain, unspecified site 09/26/2005 Anemia, unspecified Asthma Bowel disease gerd Chronic obstructive pulmonary disease (COPD) (HCC) Cocaine abuse, in remission (HCC) Esophageal reflux Gastroesophageal reflux Fracture r wrist Idiopathic urticaria 09/26/2005 Lupus (HCC) Other specified gastritis Bile reflux gastritis Peripheral vascular disease (HCC) 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 Sicca syndrome (HCC) 06/27/2006 Vomiting 06/20/2012 PAST SURGICAL HISTORY Procedure Laterality Date CHOLECYSTECTOMY 08/2005 COLONOSCOPY FLX DX W/COLLJ SPEC WHEN PFRMD 08/19/2018 Colonoscopy DILATION CERVICAL CANAL INSTRUMENTAL SPX 2000 d & c (miscarriage) ESOPHAGOGASTRODUODENOSCOPY TRANSORAL DIAGNOSTIC 11/2004 EGD ESOPHAGOGASTRODUODENOSCOPY TRANSORAL DIAGNOSTIC 08/19/2018 EGD PAST SURGICAL HISTORY OF cone biopsy PAST SURGICAL HISTORY OF Right 2010 orif wrist PICC LINE INSERT/CONSULT 06/25/2012 TONSILLECTOMY PRIMARY/SECONDARY <AGE 10 1988 Tonsillectomy FAMILY HISTORY Problem Relation Age of Onset Hypertension Mother Diabetes Mother Cancer Mother bladder Cancer Father lung Stroke Maternal Grandmother Cancer Maternal Grandfather Cancer Paternal Grandfather SOCIAL HISTORY Social History Tobacco Use Smoking status: Never Smokeless tobacco: Never Vaping Use Vaping Use: Never used Substance Use Topics Alcohol use: No Comment: 1 drink per month Drug use: No Comment: history of crack addiction REVIEW OF SYSTEMS Abdomen: No abdominal pain, nausea, vomiting, diarrhea, or constipation. No bloating, early satiety, indigestion, or increased flatulence. Bladder: No gross hematuria, urinary frequency, urinary urgency, or incontinence.+dysuria Breast: No breast lumps, nipple d/c, overlying skin changes, redness or skin retraction. Allergies and current medication updated:Yes EXAM: BP 106/68 Wt 246 lb (111.6kg) LMP 03/16/2023 GENERAL: pleasant, female in no apparent distress HEENT: Normocephalic, atraumatic, mucus membranes moist, and no lesions NECK: Supple, full range of motion, no adenopathy, and thyroid normal DERMATOLOGY: Normal, without lesions, non-icteric, and non-hirsute BREAST: soft, non-tender, symmetric, no dominant mass, normal nipple-areolar complex, no lymphadenopathy, and no nipple discharge CHEST: Normal inspiratory effort ABDOMEN: soft, non-tender, and no masses PELVIC: external genitalia normal, normal Bartholin's glands, urethra, [place]'s glands, no vulvar lesions, no cervical lesions, physiologic discharge present, normal appearing perineal body and perianal region BIMANUAL: uterus normal size, shape and consistency, no adnexal masses, and non-tender RECTOVAGINAL: deferred. NEURO: alert and oriented x3,exam grossly non-focal EXTREMITIES: normal ASSESSMENT/PLAN: 1) Health maintenance: Pap done with HPV. Mammogram ordered. Nutrition, exercise and routine health maintenance exams reviewed. Calcium/Vitamin D supplementation information provided. 2) Contraception: none. Contraceptive options reviewed and information provided. 3) STD screening: Accepts full STD screeening including HIV, Syphilis and Hepatitis. 4) Follow up one year or sooner as needed Petra Coats APRN.LAISHA documented in this encounter [facility] Progress note 12-12-2022 Note Date & Type Note Facility 12-12-2022 Note HNO ID: [id number] Author: Petra Coats APRN.CNP Service: ? Author Type: Nurse Practitioner Type: Progress Notes Filed: 12/12/2022 8:55 AM Note Text: Sully Thomas is a 42 year old female who presents for problem visit vaginal pain for 4 days. HPI: Her and her partner used a new sex toy and since then she has been having vaginal pain and pressure. She denies any bleeding, vaginal discharge, or dysuria. She is complaining of some bloating but not sure if that is related to something else. OB History T2 L2 SAB0 IAB0 Ectopic0 Multiple0 Live Births0 Hair Dryer History LMP: 11/19/2022, Having periods Age at Menarche: Age at First : Age at Menopause: Hair Dryer History Comments: Sexual Activity: Yes; Male Contraception: None PAST MEDICAL HISTORY Diagnosis Date Abdominal pain, unspecified site 09/26/2005 Anemia, unspecified Asthma Bowel disease gerd Chronic obstructive pulmonary disease (COPD) (HCC) Cocaine abuse, in remission (HCC) Esophageal reflux Gastroesophageal reflux Fracture r wrist Idiopathic urticaria 09/26/2005 Lupus ([facility]) Other specified gastritis Bile reflux gastritis Peripheral vascular disease (HCC) 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 Sicca syndrome ([facility]) 06/27/2006 Vomiting 06/20/2012 PAST SURGICAL HISTORY Procedure Laterality Date CHOLECYSTECTOMY 08/2005 COLONOSCOPY FLX DX W/COLLJ SPEC WHEN PFRMD 08/19/2018 Colonoscopy DILATION CERVICAL CANAL INSTRUMENTAL SPX 2000 d AND c (miscarriage) ESOPHAGOGASTRODUODENOSCOPY TRANSORAL DIAGNOSTIC 11/2004 EGD ESOPHAGOGASTRODUODENOSCOPY TRANSORAL DIAGNOSTIC 08/19/2018 EGD PAST SURGICAL HISTORY OF cone biopsy PAST SURGICAL HISTORY OF Right 2010 orif wrist PICC LINE INSERT/CONSULT 06/25/2012 TONSILLECTOMY PRIMARY/SECONDARY Tonsillectomy FAMILY HISTORY Problem Relation Age of Onset Hypertension Mother Diabetes Mother Cancer Mother bladder Stroke Maternal Grandmother Cancer Maternal Grandfather Cancer Paternal Grandfather Cancer Father lung Social History Tobacco Use Smoking status: Never Smokeless tobacco: Never Vaping Use Vaping Use: Never used Substance Use Topics Alcohol use: No Comment: 1 drink per month Drug use: No Comment: history of crack addiction Current Outpatient Medications Medication Sig VENTOLIN HFA 90 mcg/actuation inhaler Inhale 2 Puffs as instructed four times daily as needed for wheezing/shortness of breath. albuterol (PROVENTIL) 2.5 mg /3 mL (0.083 %) nebulizer solution Use 3 mL via nebulizer every 4 hours as needed for Wheezing/Shortness of Breath. Use over 5-15minutes. pantoprazole 40 mg tablet Take 1 tablet by mouth once daily. hydroxychloroquine 200 mg tablet Take 1 tablet by mouth twice daily. cycloSPORINE (RESTASIS) 0.05 % ophthalmic emulsion Use 1 Drop in both eyes twice daily. PLACE 1 DROP IN AFFECTED EYE(S). benzonatate (TESSALON PERLE) 100 mg capsule Take 2 capsules by mouth three times daily as needed. (Patient not taking: Reported on 07/16/2021 ) venlafaxine ER (EFFEXOR XR) 150 mg 24 hr capsule Take 150 mg by mouth once daily. (Patient not taking: Reported on 07/16/2021 ) traZODone (DESYREL) 100 mg tablet Take 100 mg by mouth once daily. (Patient not taking: Reported on 07/16/2021 ) sucralfate (CARAFATE) 100 mg/mL suspension Take 1 g by mouth four times daily. (Patient not taking: Reported on 07/16/2021 ) montelukast (SINGULAIR) 10 mg tablet Take 10 mg by mouth once daily. (Patient not taking: Reported on 07/16/2021 ) DULERA 200-5 mcg/actuation inhaler Inhale 2 Puffs as instructed twice daily. (Patient not taking: Reported on 07/16/2021 ) clindamycin 1 % external solution Apply 1 application to affected area twice daily. (Patient not taking: Reported on 07/16/2021 ) No current facility-administered medications for this visit. Allergies As of Date: 12/12/2022 Allergen Noted Reaction AMOXICILLIN 06/06/2012 GI Upset ANIMAL DANDER 09/28/2005 BANANA 09/18/2008 Intolerance COD FISH [OTHER] 09/18/2008 Intolerance FLAGYL [METRONIDAZOLE HCL] 06/06/2012 Swelling MORPHINE 08/15/2018 Shortness of Breath POLLEN 09/28/2005 VICODIN [HYDROCODONE-ACETAMINOPHE*12/06/2005 Swelling Fully Assessed 12/12/2022 REVIEW OF SYSTEMS Expanded ROS: N/A Allergies and current medication updated:Yes EXAM: Wt 245 lb 6.4 oz (111.3kg) LMP 11/19/2022 GENERAL: pleasant, female in no apparent distress HEENT: Normocephalic, atraumatic, and no lesions CHEST: Normal inspiratory effort ABDOMEN: soft, no masses, and Moderate tenderness in LLQ, periumbilical area, suprapubic area PELVIC: external genitalia normal, normal Bartholin's glands, urethra, [place]'s glands, no vulvar lesions, no cervical lesions, physiologic discharge present, normal appearing perineal body and perianal region, edema to vulva and vaginal lopes BIMANUAL: uterus normal size, shape and consistency, no (more content not included)... [facility] History of Present illness Narrative 12-12-2022 Petra Coats APRN.WELL FLOW OPERATOR - 12/12/2022 7:59 AM EDT Note Date & Type Note Facility 12-12-2022 History of Presen t illness Narrative Sully Thomas is a 42 year old female who presents for problem visit vaginal pain for 4 days. HPI: Her and her partner used a new sex toy and since then she has been having vaginal pain and pressure. She denies any bleeding, vaginal discharge, or dysuria. She is complaining of some bloating but not sure if that is related to something else. OB History T2 L2 SAB0 IAB0 Ectopic0 Multiple0 Live Births0 Hair Dryer History LMP: 11/19/2022, Having periods Age at Menarche: Age at First : Age at Menopause: Hair Dryer History Comments: Sexual Activity: Yes; Male Contraception: None PAST MEDICAL HISTORY Diagnosis Date Abdominal pain, unspecified site 09/26/2005 Anemia, unspecified Asthma Bowel disease gerd Chronic obstructive pulmonary disease (COPD) (HCC) Cocaine abuse, in remission (HCC) Esophageal reflux Gastroesophageal reflux Fracture r wrist Idiopathic urticaria 09/26/2005 Lupus (HCC) Other specified gastritis Bile reflux gastritis Peripheral vascular disease (HCC) 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 Sicca syndrome (HCC) 06/27/2006 Vomiting 06/20/2012 PAST SURGICAL HISTORY Procedure Laterality Date CHOLECYSTECTOMY 08/2005 COLONOSCOPY FLX DX W/COLLJ SPEC WHEN PFRMD 08/19/2018 Colonoscopy DILATION CERVICAL CANAL INSTRUMENTAL SPX 2000 d & c (miscarriage) ESOPHAGOGASTRODUODENOSCOPY TRANSORAL DIAGNOSTIC 11/2004 EGD ESOPHAGOGASTRODUODENOSCOPY TRANSORAL DIAGNOSTIC 08/19/2018 EGD PAST SURGICAL HISTORY OF cone biopsy PAST SURGICAL HISTORY OF Right 2010 orif wrist PICC LINE INSERT/CONSULT 06/25/2012 TONSILLECTOMY PRIMARY/SECONDARY <AGE 10 1989 Tonsillectomy FAMILY HISTORY Problem Relation Age of Onset Hypertension Mother Diabetes Mother Cancer Mother bladder Stroke Maternal Grandmother Cancer Maternal Grandfather Cancer Paternal Grandfather Cancer Father lung Social History Tobacco Use Smoking status: Never Smokeless tobacco: Never Vaping Use Vaping Use: Never used Substance Use Topics Alcohol use: No Comment: 1 drink per month Drug use: No Comment: history of crack addiction Current Outpatient Medications Medication Sig VENTOLIN HFA 90 mcg/actuation inhaler Inhale 2 Puffs as instructed four times daily as needed for wheezing/shortness of breath. albuterol (PROVENTIL) 2.5 mg /3 mL (0.083 %) nebulizer solution Use 3 mL via nebulizer every 4 hours as needed for Wheezing/Shortness of Breath. Use over 5-15minutes. pantoprazole 40 mg tablet Take 1 tablet by mouth once daily. hydroxychloroquine 200 mg tablet Take 1 tablet by mouth twice daily. cycloSPORINE (RESTASIS) 0.05 % ophthalmic emulsion Use 1 Drop in both eyes twice daily. PLACE 1 DROP IN AFFECTED EYE(S). benzonatate (TESSALON PERLE) 100 mg capsule Take 2 capsules by mouth three times daily as needed. (Patient not taking: Reported on 07/16/2021 ) venlafaxine ER (EFFEXOR XR) 150 mg 24 hr capsule Take 150 mg by mouth once daily. (Patient not taking: Reported on 07/16/2021 ) traZODone (DESYREL) 100 mg tablet Take 100 mg by mouth once daily. (Patient not taking: Reported on 07/16/2021 ) sucralfate (CARAFATE) 100 mg/mL suspension Take 1 g by mouth four times daily. (Patient not taking: Reported on 07/16/2021 ) montelukast (SINGULAIR) 10 mg tablet Take 10 mg by mouth once daily. (Patient not taking: Reported on 07/16/2021 ) DULERA 200-5 mcg/actuation inhaler Inhale 2 Puffs as instructed twice daily. (Patient not taking: Reported on 07/16/2021 ) clindamycin 1 % external solution Apply 1 application to affected area twice daily. (Patient not taking: Reported on 07/16/2021 ) No current facility-administered medications for this visit. Allergies As of Date: 12/12/2022 Allergen Noted Reaction AMOXICILLIN 06/06/2012 GI Upset ANIMAL DANDER 09/28/2005 BANANA 09/18/2008 Intolerance COD FISH [OTHER] 09/18/2008 Intolerance FLAGYL [METRONIDAZOLE HCL] 06/06/2012 Swelling MORPHINE 08/15/2018 Shortness of Breath POLLEN 09/28/2005 VICODIN [HYDROCODONE-ACETAMINOPHE*12/06/2005 Swelling Fully Assessed 12/12/2022 REVIEW OF SYSTEMS Expanded ROS: N/A Allergies and current medication updated:Yes EXAM: Wt 245 lb 6.4 oz (111.3kg) LMP 11/19/2022 GENERAL: pleasant, female in no apparent distress HEENT: Normocephalic, atraumatic, and no lesions CHEST: Normal inspiratory effort ABDOMEN: soft, no masses, and Moderate tenderness in LLQ, periumbilical area, suprapubic area PELVIC: external genitalia normal, normal Bartholin's glands, urethra, [place]'s glands, no vulvar lesions, no cervical lesions, physiologic discharge present, normal appearing perineal body and perianal region, edema to vulva and vaginal lopes BIMANUAL: uterus normal size, shape and consistency, no adnexal masses, and Moderate tenderness NEURO: alert and oriented x3,exam grossly non-focal EXTREMITIES: normal ASSESSMENT/PLAN: 1. Vaginal pain - ICD9: 625.9, ICD10: R10.2 -Recommended patient take ibuprofen or Aleve to help with pain and inflammation. Flexeril ordered for pain - GC/CHLAMYDIA DNA DET - JANICE / TRICHOMONAS AMPLIFICATION - BACTERIAL VAGINOSIS AMPLIFICATION -We will notify patient of results -Patient to follow-up if pain persist and recommended following up for an annual Petra Coats APRN.CNP Medical Decision Making: Problems: Moderate: New problem with uncertain prognosis Data: Unique test(s) ordered: 3+ Risk: Low: Low risk from testing/treatment Moderate: Drug management Medical Decision Making Level: 4 - Moderate documented in this encounter [facility] History of Past illness Narrative 08-15-2018 Note Date & Type Note Facility documented as of this encounter (statuses as of 03/30/2023) [facility] History of Past illness Narrative 06-20-2012 Note Date & Type Note Facility documented as of this encounter (statuses as of 12/12/2022) [facility] Evaluation note Note Date & Type Note Facility documented in this encounter [facility] Evaluation note Note Date & Type Note Facility documented in this encounter [facility] Reason for referral (narrative) Diagnostic Procedure Only (Routine) - Pending Review Note Date & Type Note Facility Referral ID Status Reason Start Date Expiration Date Visits Requested Visits Authorized [id number] Pending Review Auto-Generat ed Referral 03/30/2023 04/28/2024 1 1 [facility] Summary Purpose Family History No Family History Records FoundNo Family History Records FoundNo Family History Records FoundNo Family History Records FoundNo Family History Records Found Advance Directives No Advanced Directives Records FoundNo Advanced Directives Records FoundNo Advanced Directives Records FoundNo Advanced Directives Records FoundNo Advanced Directives Records Found Additional Source Comments INFORMATION SOURCE (unrecogn ized section and content) DATE CREATED AUTHOR AUTHOR'S ORGANIZ ATION 02/22/2018 [facility] DATE CREATED AUTHOR AUTHOR'S ORGANIZ ATION 08/25/2018 [facility] DATE CREATED AUTHOR AUTHOR'S ORGANIZ ATION 10/04/2023 [facility] Source Comments (unrecognize d section and content) In the event this informatio n is protected by the Federal Confidentiality of Alcohol and Drug Abuse Patient Records regulations: The Federal rules restrict any use of the information to criminally investigate or prosecute any alcohol or drug abuse patient[facility] event this information is protected by the Federal Confidentiality of Alcohol and Drug Abuse Patient Records regulations: The Federal rules restrict any use of the information to criminally investigate or prosecute any alcohol or drug abuse patient.[facility] Reason for Visit (unrecogniz ed section and content) Reason Comments Yearly Exam Care Teams (unrecognized sec tion and content) Pediatric Associate Relationship Specialty Start Date End Date Kelli Ram MD [address] [place] [address] PCP - General Internal Medicine 11/05/19 FOR RECORDS PERTAINING TO PATIENTS WHO ARE OR HAVE BEEN ENROLLED IN A CHEMICAL DEPENDENCY/SUBSTANCEABUSE PROGRAM, SOME INFORMATION MAY BE OMITTED. This clinical summary was aggregated from multiple sources. Caution should be exercised in using it in the provision of clinical care. This summary normalizes information from multiple sources, and as a consequence, information in this document may materially change the coding, format and clinical context of patient data. In addition, data may be omitted in some cases. CLINICAL DECISIONS SHOULD BE BASED ON THE PRIMARY CLINICAL RECORDS. [employer] [facility]. provides no warranty or guarantee of the accuracy or completeness of information in this document.
[2023-10-05] MEDS: Famotidine 20 MG Tablet PO (22:39)
[2023-10-05] MEDS: DiphenhydrAMINE 25 MG Capsule PO (22:39)
[2023-10-05] MEDS: predniSONE 20 MG Tablet 60 MG PO (22:39)
[2023-10-05 22:40] VITALS: PULSE 86; RESP 16; TEMP 37.1; O2SAT 96
[2023-10-05 22:41] VITALS: PULSE 86; RESP 16; TEMP 36.6; O2SAT 96
== END 2023-10-05 22:42 | disposition home or self-care (01) ==
LOC: ED 22:30
PROVIDERS: Emergency Provider Emergency Medicine; PCP Internal Medicine; Visit Provider Emergency Medicine
DX: L50.9 Urticaria, unspecified (principal); L93.2 Other local lupus erythematosus; Z79.899 Other long term (current) drug therapy; J45.909 Unspecified asthma, uncomplicated
CPT/HCPCS: 99283

== ENCOUNTER 2023-10-06 01:54 | Emergency (ER) | payer MEDICAID, SELFPAY ==
[2023-10-06 01:55] VITALS: BP 134/89; PULSE 63; RESP 12; TEMP 36.6; O2SAT 96; BMI 35.4
--- OUTSIDE RECORDS SUMMARY | 2023-10-06 02:08 | XMS RPT_ITS | CCD ---
Author Name Unknown Address [address] [place] [address] Organization [facility] Care Team Providers Care Division Operations Specialist Name Role Phone Yensho AGRISCIENCE TECHNOLOGY INSTRUCTOR, Katie A Unavailable Unavailab le Marino Gore DO Unavailable Yensho AGRISCIENCE TECHNOLOGY INSTRUCTOR, Katie A Unavailable Unavailab le Yensho AGRISCIENCE TECHNOLOGY INSTRUCTOR, Katie A Unavailable Unavailab le Yensho AGRISCIENCE TECHNOLOGY INSTRUCTOR, Katie A Unavailable Unavailab le Yensho AGRISCIENCE TECHNOLOGY INSTRUCTOR, Katie A Unavailable Unavailab le Yensho AGRISCIENCE TECHNOLOGY INSTRUCTOR, Katie A Unavailable Unavailab le Yensho AGRISCIENCE TECHNOLOGY INSTRUCTOR, Katie A Unavailable Unavailab le Yensho AGRISCIENCE TECHNOLOGY INSTRUCTOR, Katie A Unavailable Unavailab le Yensho AGRISCIENCE TECHNOLOGY INSTRUCTOR, Katie A Unavailable Unavailab le Barriga AGRISCIENCE TECHNOLOGY INSTRUCTORPia Unavailable Unavaila ble KUCHYNSKI, JAYCEE Unavailable Unavailable MELGOZA, DEMARCO Unavailable Unavailable KUCHYNSKI, JAYCEE Unavailable Unavailable Yensho AGRISCIENCE TECHNOLOGY INSTRUCTOR, Katie A Unavailable Unavailab le Yensho AGRISCIENCE TECHNOLOGY INSTRUCTOR, Katie A Unavailable Unavailab Pia Rangel Unavailable Unavailable VALENTÍN GARCÍA Unavailable Unavailable RICKYVALENTÍN TERRY Unavailable Unavailable Yensho AGRISCIENCE TECHNOLOGY INSTRUCTOR, Katie A Unavailable Unavailab le Yensho AGRISCIENCE TECHNOLOGY INSTRUCTOR, Katie A Unavailable Unavailab mike Ram MD, [...] lips and toungue sswelling [facility] Work Phone: (20 sources) amoxicillin; Translations: [AMOXICILLIN] drug allergy 2 GI Upset [facility] Work Phone: (16 sources) metroNIDAZOLE drug allergy 7 GI upset [facility] Work Phone: (16 sources) morphine drug allergy 7 cough, tightness in chest [facility] Work Phone: (4 sources) Acetaminophen / HYDROcodone; Translations: [HYDROCODONE-ACET AMINOPHEN] Drug Allergy 6 Swelling [facility] (4 sources) Banana Extract; Translations: [BANANA] Drug Allergy 9 Intolerance [facility] (4 sources) metroNIDAZOLE; Translations: [METRONIDAZOLE HCL] Drug Allergy 2 Swelling [facility] (4 sources) Morphine; Translations: [MORPHINE] Drug Allergy 8 Shortness of Breath [facility] (4 sources) Pollen; Translations: [POLLEN] Propensity to adverse reactions (disorder) 6 [facility] (4 sources) ANIMAL DANDER; Translations: [ANIMAL DANDER] Propensity to adverse reactions to drug (disorder) 6 [facility] (2 sources) OTHER; Translations: [OTHER] Propensity to adverse reactions (disorder) 9 AOF [facility] (2 sources) cod fish [Other] Propensity to adverse reactions 9 Intolerance [facility] Work Phone: Medications Current Medications Medication [...] tab po q4-6h as needed OXYCODONE-ACETAMIN OPHEN [id number] Pia Mcdonald Linus AGRISCIENCE TECHNOLOGY INSTRUCTOR Problems Active Problems Problem Classification Problem Date [...] 13:13-0400 Body weight 111.58 kg Petra Pauly PAINTER FOREMAN.AUTOMOTIVE WORKER FOREMAN Work Phone: [facility] 03-30-2023 13:13-0400 Diastolic blood pressure 68 mm[Hg] Petra Pauly PAINTER FOREMAN.AUTOMOTIVE WORKER FOREMAN Work Phone: [facility] 03-30-2023 13:13-0400 Systolic blood pressure 106 mm[Hg] Petra Patriot PAINTER FOREMAN.AUTOMOTIVE WORKER FOREMAN Work Phone: [facility] 12-12-2022 08:00-0400 Body weight 111.31 kg Petra Patriot PAINTER FOREMAN.AUTOMOTIVE WORKER FOREMAN Work Phone: [facility] 12-12-2022 08:00-0400 Diastolic blood pressure 70 mm[Hg] Petra Pauly PAINTER FOREMAN.AUTOMOTIVE WORKER FOREMAN Work Phone: [facility] 12-12-2022 08:00-0400 Systolic blood pressure 100 mm[Hg] Petra Patriot PAINTER FOREMAN.AUTOMOTIVE WORKER FOREMAN Work Phone: [facility] 06-13-2017 05:58-0400 BMI (Body Mass Index) 36.18 kg/m2 Katie Eden LPN [facility] Work Phone: 06-13-2017 05:58-0400 Body Temperature 97.4 [degF] Katie Eden LPN [facility] Work Phone: 06-13-2017 05:58-0400 BP Diastolic 83 mm[Hg] Katie Yensho AGRISCIENCE TECHNOLOGY INSTRUCTOR [facility] Work Phone: 06-13-2017 05:58-0400 BP Systolic 113 mm[Hg] Katie Yensho AGRISCIENCE TECHNOLOGY INSTRUCTOR [facility] Work Phone: 06-13-2017 05:58-0400 Height 175.26 cm Katie Yensho AGRISCIENCE TECHNOLOGY INSTRUCTOR [facility] Work Phone: 06-13-2017 05:58-0400 Pulse (Heart Rate) 63 /min Katie Yensho AGRISCIENCE TECHNOLOGY INSTRUCTOR [facility] Work Phone: 06-13-2017 05:58-0400 Respiratory Rate 18 /min Katie Yensho AGRISCIENCE TECHNOLOGY INSTRUCTOR [facility] Work Phone: 06-13-2017 05:58-0400 Weight 111.13 kg Katie Yensho AGRISCIENCE TECHNOLOGY INSTRUCTOR [facility] Work Phone: 06-05-2017 06:45-0400 BMI (Body Mass Index) 36.03 kg/m2 Pia Barriga AGRISCIENCE TECHNOLOGY INSTRUCTOR [facility] Work Phone: 06-05-2017 06:45-0400 Body Temperature 97.6 [degF] Pia Barriga AGRISCIENCE TECHNOLOGY INSTRUCTOR [facility] Work Phone: 06-05-2017 06:45-0400 BP Diastolic 78 mm[Hg] Pia Barriga AGRISCIENCE TECHNOLOGY INSTRUCTOR [facility] Work Phone: 06-05-2017 06:45-0400 BP Systolic 116 mm[Hg] Pia Barriga AGRISCIENCE TECHNOLOGY INSTRUCTOR [facility] Work Phone: 06-05-2017 06:45-0400 Height 175.26 cm Pia Barriga AGRISCIENCE TECHNOLOGY INSTRUCTOR [facility] Work Phone: 06-05-2017 06:45-0400 Pulse (Heart Rate) 65 /min Pia Barriga AGRISCIENCE TECHNOLOGY INSTRUCTOR [facility] Work Phone: 06-05-2017 06:45-0400 Respiratory Rate 18 /min Pia Barriga AGRISCIENCE TECHNOLOGY INSTRUCTOR [facility] Work Phone: 06-05-2017 06:45-0400 Weight 110.68 kg Pia Barriga AGRISCIENCE TECHNOLOGY INSTRUCTOR [facility] Work Phone: 02-28-2017 12:42-0400 BMI (Body Mass Index) 35.73 kg/m2 Katie Yensho AGRISCIENCE TECHNOLOGY INSTRUCTOR [facility] Work Phone: 02-28-2017 12:42-0400 Body Temperature 97.9 [degF] Katie Yensho AGRISCIENCE TECHNOLOGY INSTRUCTOR [facility] Work Phone: 02-28-2017 12:42-0400 BP Diastolic 74 mm[Hg] Katie Yensho AGRISCIENCE TECHNOLOGY INSTRUCTOR [facility] Work Phone: 02-28-2017 12:42-0400 BP Systolic 110 mm[Hg] Katie Yensho AGRISCIENCE TECHNOLOGY INSTRUCTOR [facility] Work Phone: 02-28-2017 12:42-0400 Height 175.26 cm Katie Yensho AGRISCIENCE TECHNOLOGY INSTRUCTOR [facility] Work Phone: 02-28-2017 12:42-0400 Pulse (Heart Rate) 70 /min Katie Yensho AGRISCIENCE TECHNOLOGY INSTRUCTOR [facility] Work Phone: 02-28-2017 12:42-0400 Pulse Oximetry 97 % Katie Yensho AGRISCIENCE TECHNOLOGY INSTRUCTOR [facility] Work Phone: 02-28-2017 12:42-0400 Respiratory Rate 18 /min Katie Yensho AGRISCIENCE TECHNOLOGY INSTRUCTOR [facility] Work Phone: 02-28-2017 12:42-0400 Weight 109.77 kg Katie Yensho AGRISCIENCE TECHNOLOGY INSTRUCTOR [facility] Work Phone: 01-16-2017 07:21-0400 BMI (Body Mass Index) 35.88 kg/m2 Katie Yensho AGRISCIENCE TECHNOLOGY INSTRUCTOR [facility] Work Phone: 01-16-2017 07:21-0400 Body Temperature 96.8 [degF] Katie Yensho AGRISCIENCE TECHNOLOGY INSTRUCTOR [facility] Work Phone: 01-16-2017 07:21-0400 Body weight 110.22 kg Katie Yensho AGRISCIENCE TECHNOLOGY INSTRUCTOR [facility] Work Phone: 01-16-2017 07:21-0400 BP Diastolic 76 mm[Hg] Katie Yensho AGRISCIENCE TECHNOLOGY INSTRUCTOR [facility] Work Phone: 01-16-2017 07:21-0400 BP Systolic 113 mm[Hg] Katie Yensho AGRISCIENCE TECHNOLOGY INSTRUCTOR [facility] Work Phone: 01-16-2017 07:21-0400 Height 175.26 cm Katie Yensho AGRISCIENCE TECHNOLOGY INSTRUCTOR [facility] Work Phone: 01-16-2017 07:21-0400 Pulse (Heart Rate) 59 /min Katie Yensho AGRISCIENCE TECHNOLOGY INSTRUCTOR [facility] Work Phone: 01-16-2017 07:21-0400 Pulse Oximetry 98 % Katie Yensho AGRISCIENCE TECHNOLOGY INSTRUCTOR [facility] Work Phone: 01-16-2017 07:21-0400 Respiratory Rate 18 /min Katie Yensho AGRISCIENCE TECHNOLOGY INSTRUCTOR [facility] Work Phone: 01-16-2017 07:21-0400 Weight 110.22 kg Katie Yensho AGRISCIENCE TECHNOLOGY INSTRUCTOR [facility] Work Phone: Encounters Encounter Date Encounter Type Care Provider Facility Start: 10-01-2023 ambulatory BARBIE Moreau y:[facility] Start: 03-30-2023 End: 03-31-2023 ambulatory KELLI RAM Facility:[facility] Start: 03-30-2023 End: 03-30-2023 Patient encounter procedure Petra Coats PAINTER FOREMAN.AUTOMOTIVE WORKER FOREMAN Work Phone: OB/Gynecology Procedures Date Procedure Procedure Detail Performing Clinician Start: 12-12-2022 Urnls dip stick/tabl et rgnt auto w/o microscopy Petra Patriot PAINTER FOREMAN.AUTOMOTIVE WORKER FOREMAN Work Phone: Start: 08-19-2018 [facility] FOREMAN.AUTOMOTIVE WORKER FOREMAN Work Phone: Start: 02-28-2017 End: 03-01-2017 IgE [Mass/volume] in Serum Marinoangela Gore DO Work Phone: Start: 02-28-2017 End: 03-01-2017 Globulin Marino Clinton Bao DO Work Phone: Start: 01-16-2017 End: 01-22-2017 *[id number] Allergens,[id number] Marino Gore DO Work Phone: Start: 01-16-2017 End: 01-16-2017 Demo&/eval of pt utiliz aersl gen/neb/inhlr/ip Marino Gore DO Work Phone: Start: 01-16-2017 End: 01-16-2017 Documentation of current medications Katie Eden LPN Start: 01-16-2017 End: 01-22-2017 *[id number] Allergens,[id number] Marino Gore DO Work Phone: Start: 01-16-2017 End: 01-16-2017 Evaluate pt use of inhaler Marinoangela Gore DO Work Phone: Plan of Treatment Date Care Activity Detail Author Start: 08-19-2028 Colonoscopy COLONOSCOPY [facility] Start: 08-19-2028 COLORECTAL CANCER SCREENING COLORECTAL CANCER SCREENING [facility] Start: 05-04-2023 Influenza vaccination C [facility] Start: 03-30-2023 End: 05-30-2023 Hepatitis B virus surface Ag [Presence] in Serum [facility] Work Phone: Immunizations Immunization Date Immunization Notes Care Provider Miguel regan 06-11-2013 influenza virus vacc ine, unspecified formulation Petra Patriot PAINTER FOREMAN.AUTOMOTIVE WORKER FOREMAN Work Phone: [facility] 05-28-2012 influenza virus vacc ine, whole virus Petra Patriot PAINTER FOREMAN.AUTOMOTIVE WORKER FOREMAN Work Phone: [facility] 05-22-2011 influenza virus vacc ine, whole virus Petra Pauly PAINTER FOREMAN.AUTOMOTIVE WORKER FOREMAN Work Phone: [facility] Work Phone: 05-22-2011 pneumococcal polysaccharide vaccine, 23 valent Petra Patriot PAINTER FOREMAN.[facility] Work Phone: [facility] Work Phone: 06-27-2006 influenza virus vacc ine, unspecified formulation Petra Pauly PAINTER FOREMAN.[facility] Work Phone: [facility] Work Phone: Payers Date Payer Category Payer Medicaid [employer] [facility] MEDICAID [id number] 2022-Present [phone] [address] [place] [address] Medicaid [id number] 2022 Medicaid [id number] Social History Date Type Detail Facility Start: 12-12-2022 Tobacco smoking stat us VAIS Never smoked tobacco [facility] Work Phone: Start: 12-12-2022 Tobacco use and exposure Smokeless tobacco non-user [facility] Work Phone: Start: 12-12-2022 End: 03-30-2023 Alcohol intake Current non-drinker of alcohol (finding) [facility] Start: 1980 Sex Assigned At Not on file C [facility] Start: 03-30-2023 History of Social function [facility] Start: 03-30-2023 Tobacco use panel [facility] National Score (1-100), lower number is lower risk 75 [facility] Progress note 10-01-2023 Note Date & Type Note Facility 10-01-2023 Note HNO ID: [id number] Author: BARBIE FISHER MD Service: ? Author [...] external genitalia normal, normal Bartholin's glands, urethra, Playas's glands, no vulvar lesions, no cervical lesions, good vaginal support, physiologic discharge present, normal appearing perineal body and perianal region BIMANUAL: uterus normal size, shape and consistency, no adnexal masses, and non-tender. RECTOVAGINAL: deferred. Wet prep/LOUIS: whiff: Negative ASSESSMENT/PLAN: leukorrhea Office Visit on 10/01/23 oxybutynin (DITROPAN) 5 mg tablet hydrOXYchloroQUINE (PLAQUENIL) 200 mg tablet STD screening: Declined STD check. Any new medications given to the patient have been explained as to directions, reasons for prescribing and side effects. Perineal hygiene and safe sex were discussed with the patient. Barbie Fisher MD [facility] Progress note 03-30-2023 Note Date & Type Note Facility 03-30-2023 Note HNO ID: [id number] Author: Petra Coats APRN.AUTOMOTIVE WORKER FOREMAN Service: ? Author Type: Nurse Practitioner Type: Progress Notes Filed: 03/30/2023 1:45 PM Note Text: Salt Maker offered: Patient declines. 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 History of Present illness Narrative 03-30-2023 Petra Coats APRN.LAISHA - 03/30/2023 1:09 PM EDT Note Date & Type Note Facility 03-30-2023 History of Presen t illness Narrative Salt Maker offered: Patient declines. Sully is a 42 [...] L2 SAB0 IAB0 Ectopic0 Multiple0 Live Births0 [employer] History LMP: 03/16/2023 (Within Days), Having periods Age at Menarche: Age at First : Age at Menopause: [employer] Dyer History Comments: Sexual Activity: Yes; Male Contraception: [...] external genitalia normal, normal Bartholin's glands, urethra, Playas's glands, no vulvar lesions, no cervical lesions, [...] Petra Coats APRN.LAISHA documented in this encounter [facility] Progress note 12-12-2022 Note Date & Type Note Facility 12-12-2022 Note HNO ID: [id number] Author: Petra Coats APRN.CNP Service: ? Author [...] L2 SAB0 IAB0 Ectopic0 Multiple0 Live Births0 [employer] History LMP: 11/19/2022, Having periods Age at Menarche: Age at First : Age at Menopause: [employer] D[employer] History Comments: Sexual Activity: Yes; Male Contraception: None PAST MEDICAL HISTORY Diagnosis Date Abdominal pain, unspecified site 09/26/2005 Anemia, unspecified Asthma Bowel disease gerd Chronic obstructive pulmonary disease (COPD) (HCC) Cocaine abuse, in remission (HCC) Esophageal reflux Gastroesophageal reflux Fracture r wrist Idiopathic urticaria 09/26/2005 Lupus ([facility]) Other specified gastritis Bile reflux gastritis Peripheral vascular disease (HCC) 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 [facility] History of Present illness Narrative 12-12-2022 Petra Coats APRN.AUTOMOTIVE WORKER FOREMAN - 12/12/2022 7:59 AM EDT Note Date [...] L2 SAB0 IAB0 Ectopic0 Multiple0 Live Births0 [employer] History LMP: 11/19/2022, Having periods Age at Menarche: Age at First : Age at Menopause: [employer] D[employer] History Comments: Sexual Activity: Yes; Male Contraception: [...] external genitalia normal, normal Bartholin's glands, urethra, Playas's glands, no vulvar lesions, no cervical lesions, [...] 4 - Moderate documented in this encounter [facility] History of Past illness Narrative 08-15-2018 Note Date & Type Note Facility documented as of this encounter (statuses as of 03/30/2023) [facility] History of Past illness Narrative 06-20-2012 Note Date & Type Note Facility documented as of this encounter (statuses as of 12/12/2022) [facility] Evaluation note Note Date & Type Note Facility documented in this encounter [facility] Evaluation note Note Date & Type Note Facility documented in this encounter [facility] Reason for referral (narrative) Diagnostic Procedure Only (Routine) - Pending Review Note Date & Type Note Facility Referral ID Status Reason Start Date Expiration Date Visits Requested Visits Authorized [id number] Pending Review Auto-Generat ed Referral 03/30/2023 04/28/2024 1 1 [facility] Summary Purpose Family History No Family [...] DATE CREATED AUTHOR AUTHOR'S ORGANIZ ATION 02/22/2018 [facility] DATE CREATED AUTHOR AUTHOR'S ORGANIZ ATION 08/25/2018 [facility] DATE CREATED AUTHOR AUTHOR'S ORGANIZ ATION 10/04/2023 [facility] Source Comments (unrecognize d section and content) In the event this informatio n is protected by the Federal Confidentiality of Alcohol and Drug Abuse Patient Records regulations: The Federal rules restrict any use of the information to criminally investigate or prosecute any alcohol or drug abuse patient.[facility] the event this information is protected by the Federal Confidentiality of Alcohol and Drug Abuse Patient Records regulations: The Federal rules restrict any use of the information to criminally investigate or prosecute any alcohol or drug abuse patient.[facility] Reason for Visit (unrecogniz ed section and content) Reason Comments Yearly Exam Care Teams (unrecognized sec tion and content) Division Operations Specialist Relationship Specialty Start Date End Date Kelli Ram MD [address] [place] [address] PCP - General Internal Medicine 11/05/19 FOR [...] BE BASED ON THE PRIMARY CLINICAL RECORDS. [employer] [facility]. provides no warranty or guarantee of the accuracy or completeness of information in this document.
[2023-10-06] MEDS: DiphenhydrAMINE 50 MG/ML Syringe 25 MG IV (02:38)
[2023-10-06] MEDS: MethylPREDNISolone 125 MG/2 ML Vial IV (02:38)
[2023-10-06 03:11] LABS: Absolute Lymphocyte Count 1.06 X10^3/uL (0.83-4.51); Absolute Neutrophil Count 6.6 X10^3/uL (2.0-7.7); Basophil# 0.03 X10^3/uL; Basophil% 0.4 % (0-1); Eosinophil# 0.01 X10^3/uL; Eosinophils% 0.1 % (0-5); Hemoglobin 13.4 g/dL (12.0-15.0); Lymphocyte # 1.06 X10^3/ul (0.83-4.51); Lymphocyte % 13.6 % (19-41); Mean Corp Hgb Conc 35.3 g/dL (32-36); Mean Corpuscular Hgb 30.3 pg (27.0-32.0); Mean Platelet Vol. 10.6 fl (6.2-12.0); Monocyte# 0.11 X10^3/uL; Monocyte% 1.4 % (0-10); NRBC Flagged by Analyzer 0 % (0-5); Neutrophil # 6.55 X10^3/uL (2.7-7.7); Neutrophil % 84.2 % (47-70); Platelet Count 212 K/mm3 (150-450); RBC Distribution Width CV 13.1 % (11.6-14.6); RBC Distribution Width SD 40.8 fl (35.1-43.9); Red Blood Count 4.42 M/mm3 (4.2-5.4); White Blood Count 7.8 K/mm3 (4.4-11.0)
[2023-10-06 03:30] LABS: ALB/GLOB Ratio 0.8 RATIO (0.9-2.4); AST(SGOT) 17 U/L (15-37); Alanine Aminotransfer ALT/SGPT 24 U/L (13-56); Albumin, Serum 3.3 g/dL (3.2-5.0); Alkaline Phosphatase 74 U/L (45-117); Anion Gap 4 (5-15); BUN 19 mg/dL (7-18); BUN/Creat Ratio 22.8 RATIO (10-20); Chloride 112 mmol/L (98-107); Creatinine, Serum 0.83 mg/dL (0.55-1.02); EST Glomerular Filtration Rate 79 mL/min (>60); Est Glom Filt Rate - Afr Amer 95 mL/min (>60); Estimated Creatinine Clearance 115.96 ml/min; Globulin 3.9 g/dL (2.2-4.2); Glucose 139 mg/dL (74-106); Potassium 3.9 mmol/L (3.5-5.1); Protein, Total 7.2 g/dL (6.4-8.2); Sodium Level 138 mmol/L (136-145)
[2023-10-06 03:47] LABS: Erythrocyte Sedimentation Rate 9 mm/hr (0-30)
[2023-10-06 03:53] LABS: CRP 6.94 mg/L (0.0-3.0)
--- NOTE | 2023-10-06 05:11 | EDS_ITS ---
HPI History of Present Illness Chief Complaint: Rash Informant: patient Narrative Narrative: 43-year-old female presenting to the emergency room with urticaria. Patient states she was seen in the emergency department just a few hours ago was given prednisone Pepcid and Benadryl. She states that time she had urticaria on her feet. It is now spread and is diffusely on her body including her face. She states her throat feels tight. She reports a generalized body burning and states I feel like I am being burned from the inside out . She also notes diffuse itching. She denies any obvious triggers for allergic symptoms. In speaking with her more deeply about her previous medical history she notes a history of lupus and takes hydroxychloroquine. 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 Patient states that she un derwent Rituxan therapy and has not had a problem for about 5 years. She does not currently see a receiving manager as hers retired. Lately she has been caring for her mother who recently passed. This is limited her ability to get follow- up. [facility] Medical History (Updated 10/06/23 @ 02:[address] Dima Funk, ) Allergic rhinitis Anemia Asthma Back pain Bronchitis Chest pain Depression Fatty liver GERD (gastroesophageal reflux disease) Hearing problem Hiatal hernia Hypersomnia IBS (irritable bowel syndrome) Interstitial lung disease Lupus OAB (overactive bladder) Obesity (BMI 30-39.9) Pleurisy Pulmonary fibrosis Pulmonary nodule Recurrent cold sores Rheumatoid arthritis Sleep apnea Urinary incontinence Vascular disease Home Medications hydroxychloroquine 200 mg tablet 200 mg PO BIDCM #180 tabs 06/04/23 [Rx Last Taken Unknown] oxybutynin chloride 5 mg tablet 5 mg PO QHS #60 tabs 06/04/23 [Rx Last Taken Unknown] clindamycin phosphate 2 % vaginal cream 1 appful vaginal DAILY PRN 10/05/23 [History Last Taken Unknown] diphenhydramine HCl 25 mg capsule (Benadryl) 25 mg PO TID PRN allergic reaction #15 caps 10/05/23 [Rx Last Taken Unknown] famotidine 20 mg tablet (Pepcid) 20 mg PO DAILY #5 tabs 10/05/23 [Rx Last Taken Unknown] prednisone 20 mg tablet 60 mg (3 x 20 mg) PO DAILY #15 TABLETS 10/05/23 [Rx Last Taken Unknown] cetirizine 10 mg tablet (Zyrtec) 10 mg PO DAILY #7 tabs 10/06/23 [Rx Last Taken Unknown] oxycodone-acetaminophen 5 mg-325 mg tablet 1 tab PO Q6H PRN PRN Pain 3 days #12 TABLETS 10/06/23 [Rx Last Taken Unknown] prednisone 20 mg tablet 60 mg (3 x 20 mg) PO DAILY #21 TABLETS 10/06/23 [Rx Last Taken Unknown] Allergy/AdvReac Type Severity Reaction Status Date / Time amoxicillin Allergy Nausea/Vom/ Verified 10/06/23 01:58 Diarrhea hydrocodone bitartrate Allergy Swelling Verified 10/06/23 01:58 [From Vicodin] metronidazole [From Flagyl] AdvReac Nausea Verified 10/06/23 01:58 morphine AdvReac Chest Verified 10/06/23 01:58 tightness Family History Mother Bladder cancer Hypertension Diabetes Alcoholism Arthritis Father Lung cancer with mets to the brain Alcoholism Grandfather Bowel disease Colon cancer Grandfather Lung cancer Grandmother No problems noted. Surgical History history ear drum replacement History of cholecystectomy History of colonoscopy History of tonsillectomy Social History Smoking Status: Never smoker second hand exposure: No alcohol intake: current alcohol intake frequency: holidays/special occasions only Alcohol type: beer and wine substance use type: does not use what type of physical activity do you participate in: none ROS ROS ED Constitutional Constitutional ED: Denies chills, fever(s) or weight loss Eyes Eyes: Denies change in vision or diplopia ENT ENT ED: Reports other Details: Sensation of throat closing ; Denies ear pain, rhinorrhea or sore throat Cardiovascular Cardiovascular: Denies chest pain, orthopnea, palpitations or racing heartbeat Respiratory/Chest Respiratory/Chest: Denies cough, dyspnea or orthopnea Gastrointestinal Gastrointestinal: Denies abdominal pain, diarrhea, nausea or vomiting Genitourinary Genitourinary ED: Denies dysuria, hematuria or urinary frequency Musculoskeletal Musculoskeletal: Denies arthralgias or myalgias Integumentary Reports rash and other Details: Pruritus ; Denies abscess Neurologic Neurologic: Denies headache(s) or weakness Psychiatric Psychiatric: Denies anxiety, depression, suicidal ideation or suicidal thoughts Endocrine Endocrinology: Denies polydipsia, polyphagia or polyuria Allergic/Immunologic Allergic/Immunologic ED: Denies mouth swelling, tongue swelling or urticaria EXAM Physical Exam Const Vital Signs: 10/06/23 01:55 Temperature 98 F Temperature Source Temporal Pulse Rate 63 Respiratory Rate 12 Blood Pressure 134/89 H Blood Pressure Mean 104 Pulse Ox 96 Oxygen Delivery Method Room Air Positive well nourished and well developed General Appearance ED: well developed HEENT Reports normocephalic, head/scalp atraumatic and moist mucous membranes HEENT Narrative: There is no tongue lip or uvular swelling. I do not appreciate any stridor. She is handling her secretions normally. Eyes PERRL and EOMs intact bilaterally Neck no lymphadenopathy, supple and no JVD Resp normal respiratory effort and clear to auscultation bilaterally Cardio regular rate, regular rhythm and no murmurs GI normal to inspection, nondistended, normoactive bowel sounds and non-tender Palpation: soft Back/Spine no CVA tenderness and normal ROM Extremity General Extremety ED: Negative for edema General Extremity: Negative for edema Neuro oriented x3 and CN's II-XII intact bilaterally Sensorium / Orientation: alert Motor Exam: strength 5/5 throughout Psych mental status grossly normal Mood & Affect: Negative for depressed or tearful Skin no wounds Skin Narrative: There is an urticarial-like rash diffusely on her body. It appears itchy. It is blanching. There are mostly small discrete circular like raised lesions. Some are confluent noted on the bilateral dorsum of the feet and more so on the chest. MDM MDM MDM Narrative Medical decision making narrative: 43-year-old female with a history of lupus that originally presented with urticarial vasculitis. She is now having burning painful urticaria throughout her body and is concerned about swelling in her throat. 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 Basic blood work was obtained shows a platelet count of 212 hemoglobin 13.4 and a white count of 7.8. Her sed rate however is not elevated is 9 CRP is elevated 6.94. CMP with a normal creatinine glucose 139 normal LFTs. Patient received IV Solu-Medrol and Benadryl. She was observed for an extended period of time and her symptoms are significantly improved. She no longer has the rash on her chest or her face. She still has some on the hands and the feet. No further throat swelling. I discussed with the patient the need for high-dose steroids which she states she was on for a prolonged period of time in the past. I am going to write for 60 mg of the next 7 days as well as some cetirizine. I will also write some oxycodone for pain. She really needs to reestablish with rheumatology as she states her last receiving manager retired and was at . She currently only sees primary care. I will get her rheumatology phone number at [facility] in [place]. However realistically she needs to get in touch with primary care on Sunday as I doubt that she is going to get into see rheumatology within a couple days. Patient to return if worsening or concerns History & Record Review Discussion w/independent historian: Patient Additional record(s) reviewed:: Prior ED visit Lab Data Attestation: I reviewed the patient's lab results. Labs: Laboratory Results - last 24 hr 10/06/23 10/06/23 10/06/23 03:02 03:05 03:08 WBC 7.8 RBC 4.42 Hgb 13.4 Hct 38.0 MCV 86.0 MCH 30.3 MCHC 35.3 RDW Std Deviation 40.8 RDW Coeff of Tiesha 13.1 Plt Count 212 MPV 10.6 Immature Gran % (Auto) 0.300 Neut % (Auto) 84.2 H Lymph % (Auto) 13.6 L Saunders % (Auto) 1.4 Eos % (Auto) 0.1 Baso % (Auto) 0.4 Absolute Neuts (auto) 6.6 Absolute Lymphs (auto) 1.06 Nucleated RBC % 0 ESR 9 Sodium 138 Potassium 3.9 Chloride 112 H Carbon Dioxide 22.0 Anion Gap 4 L BUN 19 H Creatinine 0.83 Estim Creat Clear Calc 115.96 Est GFR (MDRD) Af Amer 95 Est GFR (MDRD) Non-Af 79 BUN/Creatinine Ratio 22.8 H Glucose 139 H Calcium 8.0 L Total Bilirubin 0.70 AST 17 ALT 24 Alkaline Phosphatase 74 C-React Prot Ext Range 6.94 H Total Protein 7.2 Albumin 3.3 Globulin 3.9 Albumin/Globulin Ratio 0.8 L Discharge Plan Triage Chief Complaint: Rash ED Provider: Dima Funk Dx/Rx/DC Orders Clinical Impression: Rash, Pruritus, Urticarial vasculitis Prescriptions: New prednisone 20 mg tablet 60 mg PO DAILY Qty: 21 0RF oxycodone-acetaminophen [oxycodone-acetaminophen] 5-325 mg tablet 1 tab PO Q6H PRN PRN (Reason: Pain) 3 Days Qty: 12 0RF cetirizine [Zyrtec] 10 mg tablet 10 mg PO DAILY Qty: 7 0RF No Action oxybutynin chloride 5 mg tablet 5 mg PO QHS Qty: 60 1RF hydroxychloroquine 200 mg tablet 200 mg PO BIDCM Qty: 180 0RF clindamycin phosphate 2 % cream 1 appful VAGINAL DAILY PRN prednisone 20 mg tablet 60 mg PO DAILY Qty: 15 0RF famotidine [Pepcid] 20 mg tablet 20 mg PO DAILY Qty: 5 0RF diphenhydramine HCl [Benadryl] 25 mg capsule 25 mg PO TID PRN (Reason: allergic reaction) Qty: 15 0RF Primary Care Provider: Kelli Ram Referrals: Kelli Ram MD [Primary Care Provider] - As soon as possible Activity Restrictions/Additional Instructions: I had recommend following up with rheumatology. As you are not established with a current receiving manager this may take some time. Please discuss with your family doctor your care tonight. [facility] rheumatology in [place] is [address] place to follow-up their phone number is [phone] Disposition Disposition: Home, Self Care
[2023-10-06 05:13] VITALS: BP 124/77; PULSE 87; RESP 16; O2SAT 97
== END 2023-10-06 05:46 | disposition home or self-care (01) ==
PROVIDERS: Emergency Provider Emergency Medicine; PCP Internal Medicine; Visit Provider Emergency Medicine
DX: R21 Rash and other nonspecific skin eruption (principal); M32.9 Systemic lupus erythematosus, unspecified; L29.9 Pruritus, unspecified; L50.9 Urticaria, unspecified; Z79.899 Other long term (current) drug therapy; J45.909 Unspecified asthma, uncomplicated
CPT/HCPCS: 80053; 85025; 85652; 86140; 96374; 96375; 99284; J7030; A4216

== ENCOUNTER 2024-01-29 10:07 | Emergency (ER) | payer OTHER, MEDICAID, SELFPAY ==
[2024-01-29 10:07] VITALS: BP 139/86; PULSE 87; RESP 14; TEMP 36.6; O2SAT 98; BMI 35.3
--- NOTE | 2024-01-29 10:43 | EDS_ITS ---
HPI History of Present Illness Chief Complaint: Laceration Informant: patient Narrative Narrative: Patient presents secondary to left hand laceration. She works at [employer] and cut her left fifth finger on a slicer. She is right-hand dominant. She is unsure of her last tetanus update. [facility] Medical History Fatty liver Recurrent cold sores OAB (overactive bladder) Back pain Urinary incontinence Obesity (BMI 30-39.9) Chest pain Hiatal hernia Sleep apnea Vascular disease IBS (irritable bowel syndrome) Hearing problem Anemia Rheumatoid arthritis Pleurisy GERD (gastroesophageal reflux disease) Pulmonary nodule Pulmonary fibrosis Depression Bronchitis Asthma Lupus Interstitial lung disease Allergic rhinitis Hypersomnia Home Medications ?Medication ?Instructions ?Recorded ?Last Taken ?Type cyclobenzaprine 5 mg tablet 5 mg PO TID PRN muscle spasm #21 01/03/24 Unknown Rx tabs hydroxychloroquine 200 mg tablet 200 mg PO BID 01/29/24 Unknown History Allergy/AdvReac Type Severity Reaction Status Date / Time amoxicillin Allergy Nausea/Vom/ Verified 01/29/24 10:08 Diarrhea hydrocodone bitartrate (From Allergy Swelling Verified 01/29/24 10:08 Vicodin) metronidazole (From Flagyl) AdvReac Nausea Verified 01/29/24 10:08 morphine AdvReac Chest Verified 01/29/24 10:08 tightness Family History Mother Bladder cancer Hypertension Diabetes Alcoholism Arthritis Father Lung cancer with mets to the brain Alcoholism Grandfather Bowel disease Colon cancer Grandfather Lung cancer Grandmother No problems noted. Surgical History History of colonoscopy History of tonsillectomy history ear drum replacement History of cholecystectomy Social History Smoking Status: Never smoker second hand exposure: No alcohol intake: current alcohol intake frequency: holidays/special occasions only Alcohol type: beer and wine substance use type: does not use what type of physical activity do you participate in: none ROS ROS ED Constitutional Constitutional ED: Denies chills or fever(s) Eyes Eyes: Denies discharge from eye(s) ENT ENT ED: Denies discharge from eye(s) Cardiovascular Cardiovascular: Denies chest pain Respiratory/Chest Respiratory/Chest: Denies dyspnea Gastrointestinal Gastrointestinal: Denies abdominal pain, nausea or vomiting Musculoskeletal Musculoskeletal: Reports extremity pain; Denies back pain Integumentary Denies Abrasions or rash Neurologic Neurologic: Denies paresthesias or weakness Psychiatric Psychiatric: Denies anxiety or depression Allergic/Immunologic Allergic/Immunologic ED: Denies lip swelling or urticaria EXAM Physical Exam Const Vital Signs: 01/29/24 10:07 Temperature 98 F Temperature Source Temporal Pulse Rate 87 Respiratory Rate 14 Blood Pressure 139/86 H Blood Pressure Mean 103 Pulse Ox 98 Oxygen Delivery Method Room Air Positive well nourished and well developed General Appearance ED: well developed HEENT Reports moist mucous membranes Eyes EOMs intact bilaterally Chest Wall inspection of chest normal Resp normal respiratory effort Cardio regular rate and regular rhythm Extremity Extremity Narrative: 1 x 0.5 cm skin avulsion to the distal ulnar side of the left fifth finger. Mild bleeding noted at this time. Full range of motion with good sensation distally. Patient also has a small skin avulsion along the ulnar side of the hand at the fifth MCP joint and a small superficial laceration to the mid palm. These lesions are not bleeding. Neuro oriented x3, moves all extremities, no focal motor deficits and no sensory deficits noted MDM MDM MDM Narrative Medical decision making narrative: Tetanus update ordered. Patient's left fifth finger anesthetized with 2 cc of 1% lidocaine. She receives good digital block. Wound is cleansed and Surgifoam placed over the avulsion injury. With hand elevation bleeding is well- controlled. New dressing applied with tube gauze. [facility] Discharge Plan Triage Chief Complaint: Laceration ED Provider: Tess Alicia Dx/Rx/DC Orders Clinical Impression: Avulsion of skin, Hand laceration Instructions: ED Laceration Extremity, ED Skin Tear (Skin Avulsion) Prescriptions: No Action prednisone 20 mg tablet 20 mg PO BID Qty: 12 0RF cyclobenzaprine 5 mg tablet 5 mg PO TID PRN (Reason: muscle spasm) Qty: 21 0RF Stand Alone Forms: Work Status Form Primary Care Provider: Kelli Ram Referrals: [facility] [[facility] of Physicians] - 3-5 Days Kelli Ram MD [Primary Care Provider] - Print Language: Maori Disposition Disposition: Home, Self Care
[2024-01-29] MEDS: Diphth,Pertuss(Acell),Tet Vac 0.5 ML Vial IM (10:51)
[2024-01-29 11:01] VITALS: BP 139/87; PULSE 81; RESP 18; TEMP 36.7; O2SAT 98
== END 2024-01-29 11:02 | disposition home or self-care (01) ==
PROVIDERS: Emergency Provider Emergency Medicine; PCP Internal Medicine; Visit Provider Emergency Medicine
DX: S61.217A Laceration without foreign body of left little finger without damage to nail, initial encounter (principal); K21.9 Gastro-esophageal reflux disease without esophagitis; J45.909 Unspecified asthma, uncomplicated; Z23 Encounter for immunization; W26.8XXA Contact with other sharp object(s), not elsewhere classified, initial encounter; Y99.0 Civilian activity done for income or pay
CPT/HCPCS: 90471; 90715; 99282

== ENCOUNTER 2024-06-16 13:28 | Emergency (ER) | payer MEDICAID, SELFPAY ==
[2024-06-16 13:29] VITALS: BP 115/78; PULSE 69; RESP 18; TEMP 36.6; O2SAT 100; BMI 35.6
--- NOTE | 2024-06-16 15:30 | EX.ED.VIS.EY ---
HPI History of Present Illness Chief Complaint: Eye Problem Onset/Context/Timing Location: Right Eye Onset: Today Context: Sudden Onset Timing: Continuous Worsened by: Bright lights Relieved by: Nothing Associated Symptoms Associated Symptoms - Eyes: Burning, Eyelid swelling, Foreign body sensation, Itching, Pain and Redness; Negative for Crusting, Drainage, Matting or Photophobia Visual Changes: right: Blurred vision History of injury: No Visual correction: Glasses Narrative Narrative: Patient presents with right eye redness and pain that began today. Patient states it began rather suddenly. Patient admits to some swelling of her right eye. Patient admits to some blurry vision. Patient states it feels like there is a foreign body sensation in her right eye. Patient describes the pain as pressure and throbbing. Patient states she normally wears glasses. Patient admits to some burning. Patient also admits to some redness. Patient denies any discharge or drainage. [facility] Medical History Abrasion of skin Fatty liver Recurrent cold sores OAB (overactive bladder) Back pain Urinary incontinence Obesity (BMI 30-39.9) Chest pain Hiatal hernia Sleep apnea Vascular disease IBS (irritable bowel syndrome) Hearing problem Anemia Rheumatoid arthritis Pleurisy GERD (gastroesophageal reflux disease) Pulmonary nodule Pulmonary fibrosis Depression Bronchitis Asthma Lupus Interstitial lung disease Allergic rhinitis Hypersomnia Home Medications ?Medication ?Instructions ?Recorded ?Last Taken ?Type cyclobenzaprine 5 mg tablet 5 mg PO TID PRN muscle spasm #21 01/03/24 Unknown Rx tabs hydroxychloroquine 200 mg tablet 200 mg PO BID 01/29/24 Unknown History Allergy/AdvReac Type Severity Reaction Status Date / Time amoxicillin Allergy Nausea/Vom/ Verified 06/16/24 13:29 Diarrhea hydrocodone bitartrate (From Allergy Swelling Verified 06/16/24 13:29 Vicodin) metronidazole (From Flagyl) AdvReac Nausea Verified 06/16/24 13:29 morphine AdvReac Chest Verified 06/16/24 13:29 tightness Family History Mother Bladder cancer Hypertension Diabetes Alcoholism Arthritis Father Lung cancer with mets to the brain Alcoholism Grandfather Bowel disease Colon cancer Grandfather Lung cancer Grandmother No problems noted. Surgical History History of colonoscopy History of tonsillectomy history ear drum replacement History of cholecystectomy Social History Smoking Status: Never smoker second hand exposure: No alcohol intake: current alcohol intake frequency: holidays/special occasions only Alcohol type: beer and wine substance use type: does not use what type of physical activity do you participate in: none ROS ROS ED Constitutional Constitutional ED: Denies chills or fever(s) Eyes Eyes: Reports blurry vision; Denies diplopia ENT ENT ED: Denies rhinorrhea or sore throat Cardiovascular Cardiovascular: Denies chest pain or palpitations Respiratory/Chest Respiratory/Chest: Denies cough or dyspnea Gastrointestinal Gastrointestinal: Denies nausea or vomiting Genitourinary Genitourinary ED: Denies dysuria or hematuria Musculoskeletal Musculoskeletal: Denies back pain or neck pain Integumentary Denies abscess or rash Neurologic Neurologic: Reports headache(s); Denies weakness Allergic/Immunologic Allergic/Immunologic ED: Denies mouth swelling or urticaria EXAM Physical Exam Const Vital Signs: 06/16/24 13:29 Temperature 98 F Temperature Source Oral Pulse Rate 69 Respiratory Rate 18 Blood Pressure 115/78 Blood Pressure Mean 90 Pulse Ox 100 Oxygen Delivery Method Room Air Positive well nourished and well developed General Appearance ED: well developed and NAD HEENT atraumatic Eyes Eyes Narrative: Pupils are equal, round, and reactive to light bilaterally. Extraocular muscles are intact. Conjunctiva was injected on the right. There is a questionable corneal foreign body noted in the inferior lateral aspect of the cornea at the 7 o'clock position. Anterior chamber was clear. There is no hyphema. There is some mild tenderness over the right temporal artery. There is some mild edema of the upper and lower lids on the right. Tetracaine and fluorescein dye was applied. On slit-lamp examination, there is a corneal abrasion over the anterior lateral aspect of the right cornea from 7 to 9 o'clock position. There is no foreign body visualized on slit-lamp examination. Neck supple and no JVD Neuro oriented x3, CN's II-XII intact bilaterally, moves all extremities and no sensory deficits noted Sensorium / Orientation: alert Motor Exam: strength 5/5 throughout MDM MDM MDM Narrative Medical decision making narrative: Differential diagnosis includes corneal abrasion, corneal foreign body, temporal arteritis, glaucoma, iritis, and migraine headache. CBC will be obtained to assess for leukocytosis and anemia. Basic metabolic profile will be obtained to assess for electrolyte abnormality and renal function. Sed rate and CRP will be obtained to assess for acute phase reactant. CT scan of the brain will be obtained to assess for intracranial bleeding. Lab Data Attestation: I reviewed the patient's lab results. Lab results narrative: CBC was reviewed and was within normal limits. Sed rate was reviewed and was normal at 5. Basic metabolic profile was reviewed and was within normal limits. CRP was reviewed and was slightly elevated at 5.37. This is improved compared to previous result. Treatment and Re-Evaluation Narrative: Patient was given Reglan and Benadryl. Patient states her headache is feeling better on reevaluation. Patient was advised of her findings. Patient requested antibiotic drops for her corneal abrasion. Patient was given Ciloxan ophthalmic drops. Patient was instructed to apply 1-2 drops every 2 hours while awake. Patient states she sees Dr. Mi from ophthalmology. Patient was instructed to follow-up in 1 to 2 days. Patient was instructed to return if worse in any way. Patient understood and was agreeable with the plan. All questions were answered. Discharge Plan Triage Chief Complaint: Eye Problem Other Complaint: Headache ED Provider: Shade Hernandez Dx/Rx/DC Orders Clinical Impression: Corneal abrasion, right, Headache Instructions: ED Corneal Abrasion, ED Headache Unspecified Prescriptions: No Action cyclobenzaprine 5 mg tablet 5 mg PO TID PRN (Reason: muscle spasm) Qty: 21 0RF hydroxychloroquine 200 mg tablet 200 mg PO BID Primary Care Provider: Kelli Ram Referrals: Kelli Ram MD [Primary Care Provider] - Lazaro Mi MD [Med Staff - Active Staff] - As soon as possible (Call tomorrow to schedule an appointment. Tell them you were in the emergency department for a corneal abrasion and need follow-up.) Activity Restrictions/Additional Instructions: Apply 1 to 2 drops of the antibiotic drops to your right eye every 2 hours while you are awake. You do not need to wake up in the middle of the night to put eyedrops in. Print Language: Thai Disposition Disposition: Home, Self Care
--- NOTE | 2024-06-16 15:55 | CT_ITS ---
STUDY: CT BRAIN WITHOUT CONTRAST REASON FOR EXAM: Female, 43 years old. Headache RADIATION DOSAGE (If Supplied By Facility): CTDIvol = ( 44.99 ) mGy, DLP = ( 762.36 ) mGycm TECHNIQUE: Transaxial CT imaging of the brain was performed without administration of intravenous contrast material. Individualized dose optimization techniques were used for this CT. The protocol utilizes one or more of the following dose reduction techniques: automated exposure control, adjustment of mA and/or kV according to patient size,and/or use of iterative reconstruction technique. COMPARISON: No relevant priors. FINDINGS: Normal soft tissue structures. Normal calvarium. Normal size ventricles and extra-axial spaces for the patient''s age. Normal white matter tracts of the cerebral hemispheres. Normal basal ganglia and thalami. Normal brainstem. Normal cerebellum. There is no intracranial hemorrhage. There are no findings of an acute ischemic infarction. Normal visualized paranasal sinuses. CT/Brain/Head without Contrast IMPRESSION: Normal unenhanced CT scan of the brain. Electronically Signed: Hector Lewis MD at 17:43 EDT ,
[2024-06-16] MEDS: DiphenhydrAMINE 50 MG/ML Syringe 25 MG IV (16:15)
[2024-06-16] MEDS: Metoclopramide 10 MG/2 ML Vial IV (16:15)
[2024-06-16] MEDS: Tetracaine 0.5% Ophthalmic Bottle 1 DRP OPHTHALMIC (16:16)
[2024-06-16] MEDS: Fluorescein 1 MG STRIP 1 STRIP OPHTHALMIC (16:16)
[2024-06-16 16:25] LABS: Absolute Lymphocyte Count 2.35 X10^3/uL (0.83-4.51); Absolute Neutrophil Count 2.6 X10^3/uL (2.0-7.7); Basophil# 0.05 X10^3/uL; Basophil% 0.9 % (0-1); Eosinophil# 0.14 X10^3/uL; Eosinophils% 2.5 % (0-5); Hematocrit 42.6 % (37-47); Hemoglobin 14.8 g/dL (12.0-15.0); Lymphocyte # 2.35 X10^3/ul (0.83-4.51); Lymphocyte % 41.6 % (19-41); Mean Corp Hgb Conc 34.7 g/dL (32-36); Mean Corpuscular Hgb 30.9 pg (27.0-32.0); Mean Corpuscular Volume 88.9 fL (81-99); Mean Platelet Vol. 10.8 fl (6.2-12.0); Monocyte# 0.45 X10^3/uL; NRBC Flagged by Analyzer 0 % (0-5); Neutrophil # 2.63 X10^3/uL (2.7-7.7); Neutrophil % 46.5 % (47-70); Platelet Count 199 K/mm3 (150-450); RBC Distribution Width CV 13.2 % (11.6-14.6); RBC Distribution Width SD 43.1 fl (35.1-43.9); Red Blood Count 4.79 M/mm3 (4.2-5.4); White Blood Count 5.7 K/mm3 (4.4-11.0)
[2024-06-16 16:37] LABS: Erythrocyte Sedimentation Rate 5 mm/hr (0-30)
[2024-06-16 16:39] LABS: Anion Gap 4 (5-15); BUN 14 mg/dL (7-18); BUN/Creat Ratio 16.8 RATIO (10-20); CRP 5.37 mg/L (0.0-3.0); Calcium,Total 8.9 mg/dL (8.5-10.1); Chloride 110 mmol/L (98-107); Creatinine, Serum 0.83 mg/dL (0.55-1.02); EST Glomerular Filtration Rate 79 mL/min (>60); Est Glom Filt Rate - Afr Amer 95 mL/min (>60); Estimated Creatinine Clearance 116.48 ml/min; Glucose 108 mg/dL (74-106); Potassium 3.8 mmol/L (3.5-5.1); Sodium Level 135 mmol/L (136-145)
[2024-06-16 18:06] VITALS: BP 110/84
[2024-06-16] MEDS: Ciprofloxacin 0.3% 2.5ml Bottle RIGHT EYE (18:08)
== END 2024-06-16 18:11 | disposition home or self-care (01) ==
PROVIDERS: Emergency Provider Emergency Medicine; PCP Internal Medicine; Visit Provider Emergency Medicine
DX: S05.01XA Injury of conjunctiva and corneal abrasion without foreign body, right eye, initial encounter (principal); X58.XXXA Exposure to other specified factors, initial encounter; R51.9 Headache, unspecified
CPT/HCPCS: 70450; 80048; 85025; 85652; 86140; 96374; 96375; 99285; A4216

== ENCOUNTER 2024-09-24 13:12 | Emergency (ER) | payer MEDICAID, SELFPAY ==
[2024-09-24 13:13] VITALS: BP 131/90; PULSE 103; RESP 20; TEMP 36.3; O2SAT 96
--- NOTE | 2024-09-24 13:55 | RAD_ITS ---
HISTORY: cough. TECHNIQUE: XR Chest 1 View. COMPARISON: 08/31/2022. FINDINGS: CARDIOMEDIASTINAL BORDERS: Cardiac silhouette within normal limits in size. Mediastinal contour unremarkable. LUNGS: Mild linear opacities in the right midlung. PLEURA: No pleural effusion or pneumothorax seen. OSSEOUS STRUCTURES: Unremarkable. RAD/Chest 1 View (Portable) IMPRESSION: Mild atelectasis or inflammation in the right midlung. Electronically Signed: Lillian Hernandez MD at 14:40 EST ,
--- NOTE | 2024-09-24 15:16 | EDS_ITS ---
HPI HPI - URI History of Present Illness Chief Complaint: Cold Sx Informant: patient Onset/Context/Timing Onset: Days Context: Gradual Onset Timing: Continuous Current Severity: Mild Maximum Severity: Mild Associated Symptoms Associated Symptoms: Positive for Nasal Congestion, Myalgias, Nausea, Vomiting, Diarrhea (Nausea vomiting diarrhea the last several days now resolved.) and Nonproductive cough Narrative Narrative: 44-year-old female history of pulmonary fibrosis, asthma and lupus. Has had URI symptoms for about 4 days. She initially had some nausea, vomiting diarrhea that is since resolved. She is able to hold down p.o. fluids. She is having a nonproductive cough with intermittent wheezing. She is currently out of her albuterol solution for her nebulizer at home. She has had a fever of around 100 201. Prior similar symptoms: Yes Recent Illness/Hospitalization: No ROS ROS ED ROS Narrative Cough. Fever. Nausea, vomiting and diarrhea since resolved. Constitutional Constitutional ED: Reports fever(s) Eyes Eyes: Denies blurry vision ENT ENT ED: Denies ear pain Cardiovascular Cardiovascular: Denies chest pain Respiratory/Chest Respiratory/Chest: Reports cough; Denies sputum Gastrointestinal Gastrointestinal: Denies abdominal pain Genitourinary Genitourinary ED: Denies dysuria Musculoskeletal Musculoskeletal: Denies arthralgias Integumentary Denies abscess Neurologic Neurologic: Denies headache(s) Psychiatric Psychiatric: Denies anxiety Endocrine Endocrinology: Denies cold intolerance Hematologic/Lymphatic Hematologic/Lymphatic: Denies easy bleeding, easy bruising or lymphadenopathy Allergic/Immunologic Allergic/Immunologic ED: Denies mouth swelling, tongue swelling or urticaria [facility] Medical History Abrasion of skin Fatty liver Recurrent cold sores OAB (overactive bladder) Back pain Urinary incontinence Obesity (BMI 30-39.9) Chest pain Hiatal hernia Sleep apnea Vascular disease IBS (irritable bowel syndrome) Hearing problem Anemia Rheumatoid arthritis Pleurisy GERD (gastroesophageal reflux disease) Pulmonary nodule Pulmonary fibrosis Depression Bronchitis Asthma Lupus Interstitial lung disease Allergic rhinitis Hypersomnia Home Medications ?Medication ?Instructions ?Recorded ?Last Taken ?Type cyclobenzaprine 5 mg tablet 5 mg PO TID PRN muscle spasm #21 01/03/24 Unknown Rx tabs hydroxychloroquine 200 mg tablet 200 mg PO BID 01/29/24 Unknown History albuterol sulfate 2.5 mg/3 mL 2.5 mg (3 mL) inhalation Q4H PRN 09/24/24 Unknown Rx (0.083 %) solution for nebulization #25 vials prednisone 20 mg tablet 40 mg (2 x 20 mg) PO DAILY 7 days 09/24/24 Unknown Rx #14 tabs Allergy/AdvReac Type Severity Reaction Status Date / Time amoxicillin Allergy Nausea/Vom/ Verified 09/24/24 13:14 Diarrhea hydrocodone bitartrate (From Allergy Swelling Verified 09/24/24 13:14 Vicodin) metronidazole (From Flagyl) AdvReac Nausea Verified 09/24/24 13:14 morphine AdvReac Chest Verified 09/24/24 13:14 tightness Family History Mother Bladder cancer Hypertension Diabetes Alcoholism Arthritis Father Lung cancer with mets to the brain Alcoholism Grandfather Bowel disease Colon cancer Grandfather Lung cancer Grandmother No problems noted. Surgical History History of colonoscopy History of tonsillectomy history ear drum replacement History of cholecystectomy Social History Smoking Status: Never smoker second hand exposure: No alcohol intake: current alcohol intake frequency: holidays/special occasions only Alcohol type: beer and wine substance use type: does not use what type of physical activity do you participate in: none EXAM Physical Exam Narrative Exam Narrative: Well-appearing 44-year-old female that was seen in triage room 2 just because all the rooms were full. Vital signs are stable currently afebrile. Pulse ox 96% on room air. She is in no distress. H EENT exam moist mucous membranes. Posterior pharynx unremarkable. TMs unremarkable. Neck nontender no lymphadenopathy. No trouble swallowing. No trouble breathing. Heart regular rhythm rate about 100 no murmur. Chest wall and ribs nontender. Lungs few scattered expiratory wheezes. No rales or rhonchi. Equal and symmetrical. Abdomen soft and nontender. Back nontender. Moving all 4 extremities. Normal strength. No difficulty walking. No edema. Neurologically she is awake and alert no focal motor deficits. Exam consistent with a viral URI. Const Vital Signs: 09/24/24 13:13 Temperature 97.4 F L Temperature Source Temporal Pulse Rate 103 H Respiratory Rate 20 H Blood Pressure 131/90 H Blood Pressure Mean 103 Pulse Ox 96 Oxygen Delivery Method Room Air Positive well nourished and well developed; Negative for cachectic or contractures General Appearance ED: well developed and NAD; Negative for cachectic, contractures, cyanotic, diaphoretic or pallor Nutritional Appearance: Negative for cachectic HEENT Reports moist mucous membranes normocephalic and atraumatic Throat: posterior oropharynx normal Eyes PERRL and EOMs intact bilaterally General Eye ED: Negative for pale conjunctiva, scleral icterus or other Neck no lymphadenopathy, supple, no meningeal signs and no JVD General: Negative for anterior neck swelling or lymphadenopathy Resp normal respiratory effort and No clear to auscultation bilaterally Resp Narrative: Few scattered expiratory wheezes. No distress. Equal symmetrical. Auscultation: wheezes Cardio S1 normal heart sound, S2 normal heart sound and no murmurs Cardio Narrative: Rate about 100. Rate: regular rate Rhythm: regular rhythm GI non-tender, non-distended and no masses Auscultation: normoactive bowel sounds Palpation: soft; Negative for tender or guarding Back/Spine no CVA tenderness and normal ROM Extremity normal to inspection and full ROM General Extremety ED: Negative for cyanosis or tenderness General Extremity: Negative for cyanosis Neuro oriented x3 and CN's II-XII intact bilaterally Sensorium / Orientation: alert, oriented to person, oriented to place and oriented to time; Negative for orientation impaired, lethargic or stuporous Motor Exam: strength 5/5 throughout Psych mental status grossly normal Appearance: Negative for other Attitude: No agitated Mood & Affect: Negative for depressed, anxious or tearful Skin General Skin Exam: Negative for jaundice or pallor Lesions: no lesions Rashes: no rashes Trauma: Negative for abrasion or laceration MDM MDM MDM Narrative Medical decision making narrative: 44-year-old female seen in triage due to no bed availability. Exam benign. Nurses addend protocol. Her influenza A was positive. COVID and flu negative. Chest x-ray showed chronic changes. There was no pneumonia. Interpreted both by myself and radiologist. She will be discharged home with prednisone 40 mg a day for a week for her wheezing. Albuterol for her nebulizer at home. Fluids. Rest. Tylenol Motrin. Work excuse. Follow-up as needed return if worse. Patient is comfortable with the plan. History & Record Review Discussion w/independent historian: Patient Additional record(s) reviewed:: Prior inpatient record, Prior outpatient record, Prior ED visit, Prior labs and No prior records Radiography Chest X-Ray - ED: 1 View, Read by ED Physician, Read by Radiologist, Heart, Lungs, Mediastinum, Bony Structures, No Acute Disease and Chronic Changes Diagnostic Testing: Clinical Impression(s) from Imaging Studies Chest X-Ray 09/24/24 13:55 IMPRESSION: Mild atelectasis or inflammation in the right midlung. Electronically Signed: Lillian Hernandez MD at 14:40 EST Reading Location ID and State: [facility] / [place] Tel , Service support , Chest x-ray, portable, single view, interpreted both by myself and the radiologist. Shows no acute abnormality. Normal cardiac silhouette. Chronic changes consistent with her history of pulmonary fibrosis. No pneumonia. No fluid. Discharge Plan Triage Chief Complaint: Cold Sx ED Provider: Tone Collins Dx/Rx/DC Orders Clinical Impression: Influenza A, Acute bronchospasm, History of asthma Instructions: ED Influenza (Adult) Prescriptions: New prednisone 20 mg tablet 40 mg PO DAILY 7 Days Qty: 14 0RF albuterol sulfate 2.5 mg /3 mL (0.083 %) solution for nebulization 2.5 mg inhalation Q4H PRN Qty: 25 0RF Rx Instructions: Use q4 hours and PRN for wheezing No Action cyclobenzaprine 5 mg tablet 5 mg PO TID PRN (Reason: muscle spasm) Qty: 21 0RF hydroxychloroquine 200 mg tablet 200 mg PO BID Primary Care Provider: Kelli Ram Referrals: Kelli Ram MD [Primary Care Provider] - 3-5 Days if not improving Activity Restrictions/Additional Instructions: Plenty of fluids and rest. Alternate Tylenol and Motrin for fever Follow-up with your doctor if not improving or return if a lot worse. Albuterol for your nebulizer as needed. Prednisone daily for your wheezing. Off work today, tomorrow and Sunday. Which is September 24, 2019 and as needed. Print Language: Maori Disposition Disposition: Home, Self Care
== END 2024-09-24 15:49 | disposition home or self-care (01) ==
LOC: ED 15:15
PROVIDERS: Emergency Provider Emergency Medicine; PCP Internal Medicine; Referring Provider Emergency Medicine; Visit Provider Emergency Medicine
DX: J10.1 Influenza due to other identified influenza virus with other respiratory manifestations (principal); J98.01 Acute bronchospasm; K21.9 Gastro-esophageal reflux disease without esophagitis
CPT/HCPCS: 71045; 87631; 99282

== ENCOUNTER 2024-10-06 12:09 | Emergency (ER) | payer MEDICAID, SELFPAY ==
[2024-10-06 12:10] VITALS: BP 103/89; PULSE 91; RESP 15; TEMP 36; O2SAT 97; BMI 34.4
--- NOTE | 2024-10-06 12:32 | EX.ED.DYSGE1 ---
HPI History of Present Illness Chief Complaint: Nausea/Vomiting/Diarrhea Narrative Narrative: Patient is a 44-year-old female with history of pulmonary fibrosis, Sjogren's disease, patient is not have a PCP at this time. Presenting to the emergency department for nausea, vomiting, diarrhea that began at roughly 4 AM this morning. Patient states she is having diarrhea every 1/2 hour and is not complaining of any blood in her stool. Patient states she is constantly vomiting. She denies any fever chills. Patient states she is currently getting over influenza. Here for evaluation. She states she does have some abdominal cramping however this is throughout the entire abdomen. [facility] Medical History Abrasion of skin Fatty liver Recurrent cold sores OAB (overactive bladder) Back pain Urinary incontinence Obesity (BMI 30-39.9) Chest pain Hiatal hernia Sleep apnea Vascular disease IBS (irritable bowel syndrome) Hearing problem Anemia Rheumatoid arthritis Pleurisy GERD (gastroesophageal reflux disease) Pulmonary nodule Pulmonary fibrosis Depression Bronchitis Asthma Lupus Interstitial lung disease Allergic rhinitis Hypersomnia Home Medications ?Medication ?Instructions ?Recorded ?Last Taken ?Type cyclobenzaprine 5 mg tablet 5 mg PO TID PRN muscle spasm #21 01/03/24 Unknown Rx tabs hydroxychloroquine 200 mg tablet 200 mg PO BID 01/29/24 Unknown History albuterol sulfate 2.5 mg/3 mL 2.5 mg (3 mL) inhalation Q4H PRN 09/24/24 Unknown Rx (0.083 %) solution for nebulization #25 vials prednisone 20 mg tablet 40 mg (2 x 20 mg) PO DAILY 7 days 09/24/24 Unknown Rx #14 tabs dicyclomine 20 mg tablet 20 mg PO TID #14 tabs 10/06/24 Unknown Rx ondansetron 4 mg disintegrating 4 mg PO Q8H PRN PRN Nausea #10 tabs 10/06/24 Unknown Rx tablet Allergy/AdvReac Type Severity Reaction Status Date / Time amoxicillin Allergy Nausea/Vom/ Verified 10/06/24 12:12 Diarrhea hydrocodone bitartrate (From Allergy Swelling Verified 10/06/24 12:12 Vicodin) metronidazole (From Flagyl) AdvReac Nausea Verified 10/06/24 12:12 morphine AdvReac Chest Verified 10/06/24 12:12 tightness Family History Mother Bladder cancer Hypertension Diabetes Alcoholism Arthritis Father Lung cancer with mets to the brain Alcoholism Grandfather Bowel disease Colon cancer Grandfather Lung cancer Grandmother No problems noted. Surgical History History of colonoscopy History of tonsillectomy history ear drum replacement History of cholecystectomy Social History Smoking Status: Never smoker second hand exposure: No alcohol intake: current alcohol intake frequency: holidays/special occasions only Alcohol type: beer and wine substance use type: does not use what type of physical activity do you participate in: none ROS ROS ED ROS Narrative Constitutional: Negative for fever, chills, weight loss. Positive for weakness Eyes: Negative for vision loss, vision change, double vision ENT: Negative for any sore throat, ear pain, congestion Cardiovascular: Negative for any chest pain, tightness, palpitations Respiratory: Negative for any cough, sputum production, hemoptysis, dyspnea, dyspnea on exertion, orthopnea Gastrointestinal: Negative for any abdominal pain, constipation, blood in stool, blood in vomit. Positive for nausea, vomiting, diarrhea : Negative for any urinary frequency, dysuria, retention, blood in urine Muscle skeletal: Negative for any neck pain, back pain Neurological: Negative for any headache, syncope, dizziness Skin: Negative for any rashes, itching, abrasions, lacerations Psychiatric: Negative for any depression, anxiety, stress, suicidal ideation, homicidal ideation Hematologic: Negative for any excessive bruising, easy bleeding EXAM Physical Exam Narrative Exam Narrative: Vital signs reviewed. HEET: Head normocephalic atraumatic, TMs clear bilaterally. Posterior pharynx is clear, dry mucous membranes. Nares clear bilaterally. Neck: Supple with no lymphadenopathy or tenderness. No signs of meningismus. Cardiac: Regular rate and rhythm no murmurs gallops or rubs, equal peripheral pulses bilaterally. Respiratory: Lungs clear to auscultation bilaterally. No chest tenderness. Abdomen: Soft, nontender, nondistended. Patient abdomen soft, hyperactive bowel sounds. No abdominal bruit or pulsatile masses. No hepatosplenomegaly Extremities: No peripheral edema, no signs of gross trauma or deformity. Active full range of motion of all extremities. Neuro: Cranial nerves II through XII intact, no focal neurological deficits. Skin: Clean dry and intact with no rash, purpura, petechiae, vesicles or pustules. Backs/flank: No CVA tenderness, no midline spinal tenderness, no deformity. Psych: Normal mood and affect. No SI, HI or acute psychosis. Const Vital Signs: 10/06/24 12:10 Temperature 96.8 F L Temperature Source Temporal Pulse Rate 91 Respiratory Rate 15 Blood Pressure 103/89 H Blood Pressure Mean 93 Pulse Ox 97 Oxygen Delivery Method Room Air [facility] Lab Data Labs: Laboratory Results - last 24 hr 10/06/24 12:50 Sodium 138 Potassium 4.0 Chloride 111 H Carbon Dioxide 18.0 L Anion Gap 9 BUN 15 Creatinine 0.74 Estim Creat Clear Calc 126.94 Est GFR (MDRD) Af Amer 108 Est GFR (MDRD) Non-Af 89 BUN/Creatinine Ratio 20.1 H Glucose 127 H Calcium 8.6 Total Bilirubin 1.80 H AST 25 ALT 37 Alkaline Phosphatase 81 Total Protein 7.9 Albumin 3.3 Globulin 4.6 H Albumin/Globulin Ratio 0.7 L Lipase 36 Treatment and Re-Evaluation :: Differential diagnosis includes however is not limited to: Viral gastroenteritis, bowel obstruction, biliary colic, norovirus, dehydration, electrolyte abnormality Patient appears generally well, vital signs are stable, patient is nontoxic-appearing. Presenting to the emergency department with complaints of nausea, vomiting, diarrhea that started around 4 AM this morning. Patient exam seems to be more viral in nature. Patient will receive laboratory values including a CMP, patient received 2 L of normal saline, IV Zofran, Toradol, as well as IM Bentyl. Patient will need to be reevaluated. Patient reevaluation was feeling improved, after 2 L of fluids, patient felt better. Patient's chemistries were baseline, no acute abnormalities. Patient at this time will be diagnosed with viral gastroenteritis. I do not believe the patient needs any advanced imaging at this time. Patient be given Zofran as well as Bentyl for home. All questions answered, patient stable for discharge Discharge Plan Triage Chief Complaint: Nausea/Vomiting/Diarrhea Other Complaint: Nausea/Vomiting ED Midlevel Provider: Martin Connell ED Provider: Tone Collins Dx/Rx/DC Orders Clinical Impression: Viral gastroenteritis Instructions: ED Gastroenteritis, Viral (Adult) Prescriptions: New ondansetron 4 mg tablet,disintegrating 4 mg PO Q8H PRN PRN (Reason: Nausea) Qty: 10 0RF dicyclomine 20 mg tablet 20 mg PO TID Qty: 14 0RF No Action cyclobenzaprine 5 mg tablet 5 mg PO TID PRN (Reason: muscle spasm) Qty: 21 0RF hydroxychloroquine 200 mg tablet 200 mg PO BID prednisone 20 mg tablet 40 mg PO DAILY 7 Days Qty: 14 0RF albuterol sulfate 2.5 mg /3 mL (0.083 %) solution for nebulization 2.5 mg inhalation Q4H PRN Qty: 25 0RF Rx Instructions: Use q4 hours and PRN for wheezing Primary Care Provider: Kelli Ram Referrals: Kelli Ram MD [Primary Care Provider] - Activity Restrictions/Additional Instructions: Please follow-up outpatient. Advance her diet as tolerated Print Language: [place] Disposition Disposition: Home, Self Care
[2024-10-06] MEDS: Ondansetron 4 MG/2 ML Vial IV (12:44)
[2024-10-06] MEDS: 0.9% Normal Saline (1000mL) 1,000 ML 999 ML IV ×2 (12:45→13:39)
[2024-10-06] MEDS: Ketorolac 30 MG/ML Syringe 15 MG IV (12:45)
[2024-10-06] MEDS: Dicyclomine 20 MG/2 ML Vial IM (12:46)
[2024-10-06 13:19] LABS: ALB/GLOB Ratio 0.7 RATIO (0.9-2.4); AST(SGOT) 25 U/L (15-37); Alanine Aminotransfer ALT/SGPT 37 U/L (13-56); Albumin, Serum 3.3 g/dL (3.2-5.0); Alkaline Phosphatase 81 U/L (45-117); Anion Gap 9 (5-15); BUN 15 mg/dL (7-18); BUN/Creat Ratio 20.1 RATIO (10-20); Calcium,Total 8.6 mg/dL (8.5-10.1); Chloride 111 mmol/L (98-107); Creatinine, Serum 0.74 mg/dL (0.55-1.02); EST Glomerular Filtration Rate 89 mL/min (>60); Est Glom Filt Rate - Afr Amer 108 mL/min (>60); Estimated Creatinine Clearance 126.94 ml/min; Globulin 4.6 g/dL (2.2-4.2); Glucose 127 mg/dL (74-106); Lipase 36 U/L (13-75); Protein, Total 7.9 g/dL (6.4-8.2); Sodium Level 138 mmol/L (136-145)
[2024-10-06 14:10] VITALS: BP 112/74; PULSE 78; RESP 16; O2SAT 98
[2024-10-06 14:51] VITALS: BP 109/74; PULSE 747; RESP 16; TEMP 36.3; O2SAT 98
== END 2024-10-06 14:53 | disposition home or self-care (01) ==
PROVIDERS: Nurse Practitioner; Emergency Provider Emergency Medicine; PCP Internal Medicine; Visit Provider Emergency Medicine
DX: A08.4 Viral intestinal infection, unspecified (principal); K21.9 Gastro-esophageal reflux disease without esophagitis; J45.909 Unspecified asthma, uncomplicated
CPT/HCPCS: 80053; 83690; 96361; 96372; 96374; 96375; 99282; A4216; J2405

== ENCOUNTER → 2024-12-08 | Outpatient (CLI) | payer MEDICAID, SELFPAY ==
[2024-12-08 12:43] LABS: Absolute Lymphocyte Count 2.15 X10^3/uL (0.83-4.51); Absolute Neutrophil Count 2.4 X10^3/uL (2.0-7.7); Basophil# 0.04 X10^3/uL; Basophil% 0.8 % (0-1); Eosinophil# 0.09 X10^3/uL; Eosinophils% 1.8 % (0-5); Hematocrit 41.9 % (37-47); Hemoglobin 14.9 g/dL (12.0-15.0); Lymphocyte # 2.15 X10^3/ul (0.83-4.51); Lymphocyte % 42.7 % (19-41); Mean Corp Hgb Conc 35.6 g/dL (32-36); Mean Corpuscular Hgb 31.1 pg (27.0-32.0); Mean Corpuscular Volume 87.5 fL (81-99); Mean Platelet Vol. 10.6 fl (6.2-12.0); Monocyte# 0.33 X10^3/uL; Monocyte% 6.5 % (0-10); NRBC Flagged by Analyzer 0 % (0-5); Neutrophil # 2.41 X10^3/uL (2.7-7.7); Neutrophil % 47.8 % (47-70); Platelet Count 232 K/mm3 (150-450); RBC Distribution Width CV 12.9 % (11.6-14.6); RBC Distribution Width SD 41.3 fl (35.1-43.9); Red Blood Count 4.79 M/mm3 (4.2-5.4)
[2024-12-08 13:27] LABS: Hemoglobin A1c 4.8 % (<=5.6)
[2024-12-08 13:29] LABS: ALB/GLOB Ratio 1.1 RATIO (0.9-2.4); AST(SGOT) 28 U/L (<=31); Alanine Aminotransfer ALT/SGPT 24 U/L (<=34); Albumin, Serum 3.9 g/dL (3.5-5.0); Alkaline Phosphatase 81 U/L (35-104); Anion Gap 10 (5-15); BUN 14 mg/dL (4-19); BUN/Creat Ratio 19.2 RATIO (10-20); Calcium,Total 8.8 mg/dL (7.6-11.0); Carbon Dioxide 19.8 mmol/L (21.0-32.0); Chloride 107 mmol/L (98-108); Cholesterol 135 mg/dL (<=200); EST Glomerular Filtration Rate 108 (>60); Globulin 3.4 g/dL (2.2-4.2); Glucose 89 mg/dL (70-99); High Density Lipoprotein 50 mg/dL; Low Density Lipoprotein Calc. 65 mg/dL; Potassium 4.4 mmol/L (3.3-5.1); Protein, Total 7.4 g/dL (5.9-8.4); Sodium Level 137 mmol/L (133-145); Triglycerides 101 mg/dL; Very Low Density Lipoprotein 20 mg/dL (5-40); cholesterol:hdl ratio screen 2.73
[2024-12-08 13:30] LABS: Ferritin 155 ng/mL (22-378); Vitamin B12 256 pg/mL (180-914); Vitamin D,25 Hydroxy 14.9 ng/mL (30-100)
== END | disposition home or self-care (01) ==
LOC: VSLAB 10:30
PROVIDERS: PCP Family Medicine; Visit Provider Family Medicine
DX: Z13.6 Encounter for screening for cardiovascular disorders (principal); K21.9 Gastro-esophageal reflux disease without esophagitis; F32.9 Major depressive disorder, single episode, unspecified
CPT/HCPCS: 36415; 80053; 80061; 82306; 82607; 82728; 83036; 84443; 85025

== ENCOUNTER → 2025-02-05 | Outpatient (CLI) | payer MEDICAID, SELFPAY | END | disposition home or self-care (01) | LOC: SL 20:07 | PROVIDERS: PCP Family Medicine; Referring Provider Nurse Practitioner Acute Care; Visit Provider Nurse Practitioner Acute Care | DX: G47.33 Obstructive sleep apnea (adult) (pediatric) (principal) | CPT/HCPCS: 95811 ==

== ENCOUNTER → 2025-04-07 | Outpatient (CLI) | payer MEDICAID, SELFPAY | END | disposition home or self-care (01) | LOC: SL 18:31 | PROVIDERS: PCP Family Medicine; Referring Provider Nurse Practitioner Acute Care; Visit Provider Nurse Practitioner Acute Care | DX: Z00.00 Encounter for general adult medical examination without abnormal findings (principal) ==

== ENCOUNTER 2025-06-23 12:21 | Day surgery (SDC) | payer MEDICAID, SELFPAY ==
[2025-06-23] VITALS (9 sets, daily range): BP systolic 81–115; BP diastolic 63–78; PULSE 53–67; RESP 12–16; TEMP 36.1–36.7; O2SAT 95–100; BMI 34.4
[2025-06-23] MEDS: Lactated Ringers 1,000 ML 15 ML IV (12:50)
[2025-06-23 13:04] LABS: Internal QC Validated? YES +Cl - CLEAR BKGD; Pregnancy, Serum, hCG Quali. NEGATIVE Negative; Record Kit Lot#, Serum Preg. 0000980607
== END 2025-06-23 16:02 | disposition home or self-care (01) ==
LOC: EN 12:22 → AC 12:23
PROVIDERS: Anesthesiology; PCP Family Medicine; Referring Provider Family Medicine; Visit Provider Internal Medicine Gastroenterology
PROC: 0DJD8ZZ Inspection of Lower Intestinal Tract, Via Natural or Artificial Opening Endoscopic (ICD-10-PCS; CPT 45378; principal; 2025-06-23 13:10)
DX: Z12.11 Encounter for screening for malignant neoplasm of colon (principal); K21.00 Gastro-esophageal reflux disease with esophagitis, without bleeding; K31.84 Gastroparesis; K57.30 Diverticulosis of large intestine without perforation or abscess without bleeding; K44.9 Diaphragmatic hernia without obstruction or gangrene; Z79.899 Other long term (current) drug therapy; K29.50 Unspecified chronic gastritis without bleeding; D12.3 Benign neoplasm of transverse colon; J45.909 Unspecified asthma, uncomplicated; K58.0 Irritable bowel syndrome with diarrhea
CPT/HCPCS: 45380; 44361; 84703; 88305; 88342; J2405